=== PATIENT | male | born 1970 | race Caucasian/White ===

== ENCOUNTER 2021-03-14 07:19 | Outpatient (REF) | payer OTHER, SELFPAY ==
--- NOTE | ~2021-03-14 | XR_ITS ---
EXAMINATION: XR KNEE STANDING, BILATERAL XR KNEE, RIGHT CLINICAL INFORMATION: Pain. COMPARISON: None TECHNIQUE: AP standing view of the right and left knees. Lateral and sunrise views of the right knee. FINDINGS: RIGHT KNEE: No significant joint space narrowing. Mild lateral subluxation of the patella with tiny marginal osteophytes. Small joint effusion. No fracture or dislocation. Inferior patellar enthesophyte. LEFT KNEE: Tiny lateral compartment marginal osteophytes. XR/XR knee standing BI IMPRESSION: 1. Mild lateral subluxation of the right patella with mild osteoarthritis. Small right knee joint effusion. 2. Mild lateral compartment osteoarthritis within the left knee.
--- NOTE | ~2021-03-14 | XR_ITS ---
EXAMINATION: XR KNEE STANDING, BILATERAL XR KNEE, RIGHT CLINICAL INFORMATION: Pain. COMPARISON: None TECHNIQUE: AP standing view of the right and left knees. Lateral and sunrise views of the right knee. FINDINGS: RIGHT KNEE: No significant joint space narrowing. Mild lateral subluxation of the patella with tiny marginal osteophytes. Small joint effusion. No fracture or dislocation. Inferior patellar enthesophyte. LEFT KNEE: Tiny lateral compartment marginal osteophytes. XR/XR knee RT 2V IMPRESSION: 1. Mild lateral subluxation of the right patella with mild osteoarthritis. Small right knee joint effusion. 2. Mild lateral compartment osteoarthritis within the left knee.
== END 2021-03-14 07:20 | disposition home or self-care (01) ==
LOC: HO.HOSX 07:19
PROVIDERS: Visit Provider Physician Assistant
DX: M17.11 Unilateral primary osteoarthritis, right knee (principal)
CPT/HCPCS: 20610; 73560; 73565; J1040

== ENCOUNTER → 2021-04-26 13:21 | Outpatient (BNVA) | payer OTHER, SELFPAY | PROVIDERS: PCP Internal Medicine; Visit Provider Physician Assistant ==

== ENCOUNTER 2021-05-08 07:18 | Outpatient (REF) | payer OTHER, SELFPAY ==
--- NOTE | ~2021-05-08 | MR_ITS ---
EXAMINATION: MR KNEE WITHOUT CONTRAST, RIGHT CLINICAL INFORMATION: Right knee pain and swelling. Osteoarthritis. COMPARISON: Right knee radiographs dated 03/14/2021 TECHNIQUE: MRI of the knee without contrast was performed using routine sequences on a high-field scanner. FINDINGS: MENISCI: Medial Meniscus: Intact. Lateral Meniscus: Intact. LIGAMENTS: Cruciate: Intact. Collateral: Intact. EXTENSOR MECHANISM: The quadriceps and patellar tendons are intact. Mild patella raven. Chronic lateral subluxation of the patella with edema in the superolateral aspect of Hoffa's fat pad, which can be seen in the setting of patellar tendon-lateral femoral condyle friction syndrome. ARTICULAR CARTILAGE/BONE: Patellofemoral Compartment: Full-thickness lateral patellar facet and lateral trochlear articular cartilage loss with underlying subchondral cystic change and associated marrow edema. Central trochlear articular cartilage signal heterogeneity and medial patellar facet articular cartilage fissuring. Small marginal osteophytes. Medial Compartment: Normal. Lateral Compartment: Normal. JOINT FLUID AND BURSAE: Moderate joint effusion. MR/MR knee RT wo con IMPRESSION: 1. Mild patella raven with chronic lateral subluxation of the patella. Associated [id number] patellofemoral osteoarthritis with underlying marrow edema. 2. Moderate joint effusion. 3. No acute meniscal or ligamentous injury.
== END 2021-05-08 07:19 | disposition home or self-care (01) ==
LOC: HO.MRI 07:18
PROVIDERS: PCP Internal Medicine; Visit Provider Physician Assistant
DX: M17.11 Unilateral primary osteoarthritis, right knee (principal)
CPT/HCPCS: 73721

== ENCOUNTER → 2021-05-13 08:20 | Outpatient (BNVA) | payer OTHER, SELFPAY | PROVIDERS: PCP Internal Medicine; Visit Provider Physician Assistant | DX: M17.11 Unilateral primary osteoarthritis, right knee (principal) | CPT/HCPCS: 20610; J1040 ==

== ENCOUNTER 2021-06-07 15:00 | Outpatient (RCR) | payer OTHER, SELFPAY ==
--- NOTE | 2021-05-23 16:31 | MHC.PT.EP ---
[facility] [place] [facility] [place] Office [place] Office [address] Maricruz Kaur [address] [phone] F: [phone] F: [phone] F: [phone] F: [phone] Physical Therapy Plan of Care Date of Evaluation: Date of Surgery: n/a Diagnosis: OA of R knee Assessment: Patient is a 50 year old male presenting to PT with complaints of pain in his R knee. Pt reports onset of pain began February 2021 due to a twisting injury when taking an AC out of the window. He presents today with impairments in pain, swelling, knee ROM, knee strength, hip strength, and feelings of instability. 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 Clinical presentation today is most consistent with signs and sx associated with somewhat unclear etiology at this time as he did not tolerate much testing today however per imaging reports pt does have moderate to severe OA at baseline and pt will benefit from skilled PT to address the following problems and impairments noted upon evaluation: pain, swelling, knee ROM, knee strength, hip strength, and feelings of instability. These problems limit the patient with the following functional activities: ambulation, standing, stair negotiation, golfing, transfers, vacumming, mowing the lawn, cleaning. The prescribed treatment plan of care is medically necessary. Co-morbidities of arthritis were identified and taken into considerations of plan of care. Pt was educated on HEP, role of PT, prognosis, POC. Frequency and Duration: The patient will be seen 2x week x 4 weeks Short Term Goals: Pt will demonstrate improved knee ROM to equal B with min pain in 2 weeks. Pt will demonstrate improved knee strength by 1/3 MMT for improved stability when ambulating in 2 weeks. Pt will demonstrate improved swelling to within 1cm of his LLE in 2 weeks. Structural Worker Goals: Pt will demonstrate ability to ambulate from his car into work with minimal pain in 4 weeks to improve access to work. Pt will demonstrate ability to navigate stairs with pain <3/10 in 4 weeks for improved access to his home. Pt will demonstrate ability to complete household cleaning, and lawn mowing duties with pain <3/10 in 4 weeks for improved role at home. Pt will demonstrate improved LEFI score by 9 points in 4 weeks for improved functional mobility. Treatment Plan: Modalities to reduce pain, spasms and effusion. Manual therapy to restore motion and function. Therapeutic exercise to improve strength and flexibility. Neuromuscular re-education for posture and balance. Therapeutic activities to return to functional activities of daily living. Electronically signed by: Opal Horn, PT, DPT, ATC Please sign and return to therapist. Thank you for your referral.
--- NOTE | 2021-06-27 09:35 | MHC.PT.DC ---
[facility] [place] Office [place] Office [place] Office [address] Maricruz Kaur [address] [phone] F: [phone] F: [phone] F: [phone] F: [phone] Physical Therapy Discharge Report Diagnosis: OA of R knee Date of Surgery: n/a Date of Evaluation: 05/23/21 Date of Discharge: 06/27/21 Treatments to Date: 5 Cancellations to Date: 0 No Shows to Date: 0 Discharge Status: Visit Non-compliance Discharge Summary: Pt has cancelled all remaining appointments. Call placed to discuss continuing PT however pt has not returned call. Current status unknown at this time. Electronically signed by: Opal Horn, PT, DPT, ATC Please sign and return to therapist. Thank you for your referral.
== END 2021-06-27 09:36 | disposition home or self-care (01) ==
LOC: HO.PT 15:00
PROVIDERS: PCP Internal Medicine; Visit Provider Physician Assistant
DX: M17.11 Unilateral primary osteoarthritis, right knee (principal)
CPT/HCPCS: 97110; 97112; 97140; 97161

== ENCOUNTER → 2021-06-24 08:46 | Outpatient (BNVA) | payer OTHER, SELFPAY | PROVIDERS: PCP Internal Medicine; Visit Provider Physician Assistant ==

== ENCOUNTER → 2021-07-15 08:22 | Outpatient (BNVA) | payer OTHER, SELFPAY | PROVIDERS: PCP Internal Medicine; Visit Provider Internal Medicine ==

== ENCOUNTER 2021-08-21 05:54 | Outpatient (REF) | payer OTHER, SELFPAY | END 2021-08-21 05:55 | disposition home or self-care (01) | LOC: HO.RADIR 05:54 | PROVIDERS: Visit Provider Internal Medicine | DX: M17.11 Unilateral primary osteoarthritis, right knee (principal) | CPT/HCPCS: 64450 ==

== ENCOUNTER → 2021-08-29 09:58 | Outpatient (BNVA) | payer OTHER, SELFPAY | PROVIDERS: PCP Internal Medicine; Visit Provider Nurse Practitioner Family ==

== ENCOUNTER → 2021-09-19 13:04 | Outpatient (BNVA) | payer OTHER, SELFPAY | PROVIDERS: PCP Internal Medicine; Visit Provider Physician Assistant ==

== ENCOUNTER 2021-12-12 08:22 | Outpatient (REF) | payer OTHER, SELFPAY ==
--- NOTE | ~2021-12-12 | US_ITS ---
EXAMINATION: US ABDOMEN COMPLETE CLINICAL INFORMATION: Unspecified abdominal pain. COMPARISON: Ultrasound abdomen 04/24/2014. TECHNIQUE: Real-time imaging of the abdominal viscera. FINDINGS: PANCREAS: The pancreas is obscured by overlying gas. ABDOMINAL AORTA: The proximal, mid, and distal segments are normal in caliber. INFERIOR VENA CAVA: Visualized portions are normal. LIVER: Normal. The liver is normal in size. The liver contour is normal. Parenchymal echogenicity is normal. No focal hepatic lesion. There is no intrahepatic biliary duct dilatation seen. GALLBLADDER: Normal. The gallbladder is physiologically distended without evidence of stones, sludge, polyps, wall thickening or pericholecystic fluid. COMMON BILE DUCT: Normal in caliber measuring 0.3 cm in diameter. RIGHT KIDNEY: Normal. No hydronephrosis. No renal calculi or focal parenchymal lesions. The kidney measures 10.9 cm in maximum dimension. LEFT KIDNEY: Normal. No hydronephrosis. No renal calculi or focal parenchymal lesions. The kidney measures 11.7 cm in maximum dimension. SPLEEN: Normal. The spleen measures 11.2 cm in maximum dimension. FREE FLUID: None. US/US abdomen complete IMPRESSION: Unremarkable complete abdomen ultrasound.
== END 2021-12-12 08:23 | disposition home or self-care (01) ==
LOC: HO.US 08:22
PROVIDERS: PCP Internal Medicine; Visit Provider Internal Medicine
DX: R10.9 Unspecified abdominal pain (principal)
CPT/HCPCS: 76700

== ENCOUNTER → 2022-01-10 07:09 | Outpatient (BNVA) | payer OTHER, SELFPAY | PROVIDERS: PCP Internal Medicine; Referring Provider Internal Medicine; Visit Provider Nurse Practitioner | DX: K22.70 Barrett's esophagus without dysplasia (principal) ==

== ENCOUNTER 2022-01-16 07:14 | Outpatient (REF) | payer OTHER, SELFPAY ==
[2022-01-16 07:35] LABS: MANUAL DIFF FLAG NO
[2022-01-16 08:04] LABS: Basophils Percent Auto 0.8 % (0-2); Eosinophils Absolute Auto 0.2 X10*3/uL (0.0-0.4); Eosinophils Percent Auto 3.4 % (0-4); Hematocrit 45.8 % (42.0-52.0); Hemoglobin 15.2 g/dl (14.0-18.0); Imm Gran Abs Auto 0.01 X10*3/uL (0.00-0.03); Imm Gran Pct Auto 0.2 % (0.0-0.4); Lymphocytes Absolute Auto 1.7 X10*3/uL (1.2-4.9); Lymphocytes Percent Auto 32.7 % (20-40); Mean Corpuscular HGB Conc 33.2 g/dl (31.0-36.0); Mean Corpuscular Hemoglobin 29.9 pg (27.0-33.0); Mean Platelet Volume 9.3 fL (9.4-12.4); Monocytes Absolute Auto 0.4 X10*3/uL (0.1-1.2); Monocytes Percent Auto 6.6 % (2-11); Neutrophils Percent Auto 56.3 % (45-73); Platelet Count 248 X10*3/uL (160-400); Red Blood Count 5.09 X10*6/uL (4.60-5.80); Red Cell Distribution Width 13.2 % (11.0-16.0); White Blood Count 5.3 X10*3/uL (4.8-10.8)
[2022-01-16 08:44] LABS: Alanine Aminotransferase 18 U/L (0-40); Albumin Level 4.2 g/dL (3.5-5.0); Alkaline Phosphatase 52 U/L (39-117); Anion Gap 12 (12-20); Aspartate Amino Transferase 17 U/L (5-37); Bilirubin Total 0.3 mg/dL (0.0-1.0); Blood Urea Nitrogen 15 mg/dL (9-16); Calcium 9.2 mg/dL (8.4-10.2); Carbon Dioxide 25 mmol/L (22-29); Chloride 105 mmol/L (96-108); Estimated Glomerular Filt Rate > 60; Glucose Random 108 mg/dL (60-115); Potassium 4.7 mmol/L (3.3-5.1); Sodium 137 mmol/L (135-145); Total Protein 6.7 g/dL (6.5-8.0)
== END 2022-01-16 07:15 | disposition home or self-care (01) ==
LOC: HO.LAB 07:14
PROVIDERS: PCP Internal Medicine; Visit Provider Nurse Practitioner
DX: R10.9 Unspecified abdominal pain (principal); K22.70 Barrett's esophagus without dysplasia
CPT/HCPCS: 36415; 80053; 85025

== ENCOUNTER → 2022-01-24 07:20 | Outpatient (BNVA) | payer OTHER, SELFPAY | PROVIDERS: PCP Internal Medicine; Referring Provider Internal Medicine; Visit Provider Nurse Practitioner | DX: K22.70 Barrett's esophagus without dysplasia (principal) ==

== ENCOUNTER 2022-05-30 10:51 | Day surgery (SDC) | payer OTHER, SELFPAY ==
--- NOTE | 2022-05-29 12:02 | HO.ANESPROP2 ---
Documented by User: Lisa Srinivasan NP 05/29/22 12:03 HPI - Anesthesia Eval Consult details Narrative: 51yo M for Upper Endoscopy PMFSH Active Problems Active Problems: All Active Problems (Updated 04/07/22 @ 14:54 by Nicho Bullard MD) Fatigue (Acute) Epigastric pain (Acute) Obesity (Acute) Smoker (Acute) Lee's esophagus (Acute) GERD (gastroesophageal reflux disease) (Acute) Patellofemoral syndrome, right (Acute) Osteoarthritis of right knee (Acute) Knee pain (Acute) Past Medical History Medical History (Updated 04/07/22 @ 14:54 by Nicho Bullard MD) Duodenal ulcer Family History Family History Father Past heart attack Parkinsons disease Mother Hypertension Sister No problems noted. Brother No problems noted. Brother No problems noted. Brother No problems noted. Brother No problems noted. 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 Cognitive needs: No Hearing needs: No Vision needs: No Meds Allergies Allergy/AdvReac Type Severity Reaction Status Date / Time No Known Allergies Allergy Verified 04/07/22 14:09 Exam Exam Date and Time: May 29, 2022 1202 Pertinent Lab Results Pertinent Lab Results: Laboratory Tests 01/16/22 01/16/22 07:34 07:34 WBC 5.3 Hgb 15.2 Hct 45.8 Plt Count 248 Sodium 137 Potassium 4.7 Chloride 105 Carbon Dioxide 25 BUN 15 Creatinine 0.94 Assessment and Plan Assessment Anesthesia Assessment: Chart Reviewed Documented by User: Devi Gutiérrez MD 05/30/22 11:37 [facility] Past Medical History Medical History (Updated 04/07/22 @ 14:54 by Nicho Bullard MD) Duodenal ulcer Family History Family History Father Past heart attack Parkinsons disease Mother Hypertension Sister No problems noted. Brother No problems noted. Brother No problems noted. Brother No problems noted. Brother No problems noted. 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 Cognitive needs: No Hearing needs: No Vision needs: No Meds Allergies Allergy/AdvReac Type Severity Reaction Status Date / Time No Known Allergies Allergy Verified 04/07/22 14:09 Exam Airway Mallampati Class: II TM Dist: >3cm Neck ROM: Full Heart: rrr Lungs: cta Assessment and Plan Assessment Anesthesia Assessment: Anesthesia Plan Discussed Final Anesthetic Review Family History of Problems with Anesthesia: No History of Problems with Anesthesia: No NPO: Yes ASA Class: III Final Preanesthetic Review: No Changes in Pt Med Stat, Meds/Allgs Chart Reviewed and Consent Obtained/Reviewed Patient Risk: Intermediate Procedure Risk: Intermediate Anesthetic Plan Anesthetic Plan: MAC: Disposition: Standard PACU
[2022-05-30 11:40] VITALS: BP 139/85; PULSE 73; RESP 18; TEMP 36.8; O2SAT 99; BMI 29.8
[2022-05-30] MEDS: Lactated Ringers 1,000 ML 100 ML IVCONT (12:05)
--- NOTE | 2022-05-30 12:35 | MHC.SHP ---
Pre-Procedural Eval Section A Date of Service: 05/30/22 The patient is an INPATIENT: No The History & Physical has been completed within 30 days and I have reviewed it.: No Section B Chief Complaint: Epigastric pain,Lee's,reflux disease Relevant Family History (Specify if Yes): No Relevant Social History: Tobacco Use (quitted 2 months ago) Present Medications: see Short Stay Collaborative assessment Medical History: Significant History (GERD, OA) History of Previous Operations: No relevant previous surgery Allergies: Allergies Allergy/AdvReac Type Severity Reaction Status Date / Time No Known Allergies Allergy Verified 04/07/22 14:09 Review of Systems Sugical H&P ROS: Negative: Constitution, Cardiovascular and Respiratory and Yes, Specify: Gastrointestinal (upper abdominal pain) Exam Surgical H&P Exam: Normal: Heart, Normal: Lungs, Normal: Extremities and Normal: Abdomen Plan Diagnosis/Plan: Unchanged I have reviewed the history and physical and performed a pertinent physical examination on my patient. No changes have occurred unless specified.
--- NOTE | 2022-05-30 12:42 | PM.OP ---
Brief Operative Note Date of Service: 05/30/22 Pre-op diagnosis: GERD, follow-up of Barretts esophagus, upper abdominal pain Post-op diagnosis: other (GERD, hiatal hernia, gastritis, long segment Barretts) Procedure: FLEXIBLE TRANSORAL UPPER GASTROINTESTINAL ENDOSCOPY WITH BIOPSIES Consent: Indications for the procedure and potential complications of bleeding, perforation, reaction to medications and missed diagnosis were discussed with the patient and informed consent was obtained. Instrument: Olympus GIF H 190 mid size upper endoscope Monitoring: Vital signs and clinical assessment, continuous EKG monitoring, Pulse oximetry, Carbon Dioxide monitoring and blood pressure monitoring were done throughout the procedure. Procedure: The patient was placed in the left lateral decubitis position and pre-procedure medications were administered and a bite block was placed. The endoscope was inserted into the mouth and advanced under direct vision to the third part of duodenum. A careful inspection was made as the upper endoscope was withdrawn including a retroflexed examination of the proximal stomach; Findings and interventions are described below. Findings: Larynx: Normal Esophagus: GE junction at 34 cms, medium sized hiatal hernia from 34 to 38 cms. Lond segment Main's from 20 to 34 cms - examined with NBI. A 7-8 mm nodule noted at 22 cms - biopsied. No esophagitis. Surveillance biopsies were obtained every 2 cm from the Main's segment. Stomach: Mild gastric erythema. Biopsies were obtained. Grade 4 flap valve on retroflexed examination of the cardia. Duodenum: Normal bulb and descending duodenum Intervention: Biopsies as noted above Impression and Post Procedure Diagnosis: Endoscopy Findings: ESOPHAGUS: GE junction at 34 cms, medium sized hiatal hernia from 34 to 38 cms. Lond segment Main's from 20 to 34 cms - examined with NBI. A 7-8 mm nodule noted at 22 cms - biopsied. No esophagitis. Surveillance biopsies were obtained every 2 cm from the Main's segment. STOMACH: Antral gastritis No clear etiology found for upper abdominal/chest pain Plan: Await pathology results. Further evaluation with a barium swallow to rule out torsion of hiatal hernia causing abdominal/chest pain Patient has an appointment on 06/26/22 in the GI Clinic with Alecia Pappas NP . Above findings were reviewed with the patient and GERD and Main's esophagus handouts were given in the discharge area Surgeon: Alka Mccloud MD Anesthesia: MAC (Dr Quigley) Was an Safety Equipment Testing Specialist used for this Procedure?: Yes Safety Equipment Testing Specialist: Barry Geiger Estimated blood loss (mL): 0 Pathology: other (A-GASTRIC ANTRUM BXS R/O H. PYLORI B- ESOPHAGUS BXS AT 34CM MAIN'S. R/O DYSPLASIA C- ESOPHAGUS BXS AT 32CM MAIN'S. R/O DYSPLASIA D- ESOPHAGUS BXS AT 30CM E- ESOPHAGUS BXS AT 28 CM ) Condition: stable Disposition: PACU
--- NOTE | 2022-05-30 12:43 | P.OP_ITS ---
Operative Note Operative Note Date of Service: 05/30/22 Narrative: Pre-op diagnosis: GERD, follow-up of Barretts esophagus, upper abdominal pain Post-op diagnosis:?other (GERD, hiatal hernia, gastritis, long segment Barretts) Procedure: FLEXIBLE TRANSORAL UPPER GASTROINTESTINAL ENDOSCOPY WITH BIOPSIES Consent:?Indications for the procedure and potential complications of bleeding, perforation, reaction to medications and missed diagnosis were discussed with the patient and informed consent was obtained. Instrument:?Olympus GIF H 190 mid size upper endoscope Monitoring: Vital signs and clinical assessment, continuous EKG monitoring, Pulse oximetry, Carbon Dioxide monitoring and blood pressure monitoring were done throughout the procedure. Procedure:?The patient was placed in the left lateral decubitis position and pre-procedure medications were administered and a bite block was placed. The endoscope was inserted into the mouth and advanced under direct vision to the third part of duodenum. A careful inspection was made as the upper endoscope was withdrawn including a retroflexed examination of the proximal stomach; Findings and interventions are described below. Findings: Larynx:? Normal Esophagus: GE junction at 34 cms, medium sized hiatal hernia from 34 to 38 cms. Lond segment Main's from 20 to 34 cms - examined with NBI. A 7-8 mm nodule noted at 22 cms - biopsied. No esophagitis. Surveillance biopsies were obtained every 2 cm from the Main's segment. Stomach: Mild gastric erythema. Biopsies were obtained. Grade 4 flap valve on retroflexed examination of the cardia. Duodenum: Normal bulb and descending duodenum Intervention: Biopsies as noted above Impression and Post Procedure Diagnosis: Endoscopy Findings: ESOPHAGUS: GE junction at 34 cms, medium sized hiatal hernia from 34 to 38 cms. Lond segment Main's from 20 to 34 cms - examined with NBI. A 7-8 mm nodule noted at 22 cms - biopsied. No esophagitis. Surveillance biopsies were obtained every 2 cm from the Main's segment. STOMACH: Antral gastritis No clear etiology found for upper abdominal/chest pain Plan: Await pathology results. Further evaluation with a barium swallow to rule out torsion of hiatal hernia causing abdominal/chest pain. Consider a chest/abdominal CT scan if barium swallow is negative Patient has an appointment on 06/26/22 in the GI Clinic with? Alecia Pappas NP. Above findings were reviewed with the patient and GERD and Main's esophagus handouts were given in the discharge area Surgeon: Alka Mccloud MD Anesthesia:?MAC (Dr Quigley) Was an Shed Workers Supervisor used for this Procedure?:?Yes Shed Workers Supervisor:?Barry Geiger Estimated blood loss (mL):?0 Pathology:?other (A-GASTRIC ANTRUM BXS? R/O H. PYLORI? B- ESOPHAGUS BXS AT 34CM ? MAIN'S. ? R/O DYSPLASIA? C- ESOPHAGUS BXS? AT 32CM ? MAIN'S. ? R/O DYSPLASIA? D- ESOPHAGUS BXS AT 30CM? E- ESOPHAGUS BXS AT 28 CM ? ? ) Condition:?stable Disposition:?PACU
[2022-05-30 13:23] VITALS: BP 95/59; PULSE 55; RESP 16; TEMP 36.3; O2SAT 96
[2022-05-30 13:38] VITALS: BP 111/74; PULSE 56; RESP 18; TEMP 36.3; O2SAT 100
== END 2022-05-30 14:10 | disposition home or self-care (01) ==
PROVIDERS: PCP Internal Medicine; Visit Provider Internal Medicine Gastroenterology
PROC: 0DJ08ZZ Inspection of Upper Intestinal Tract, Via Natural or Artificial Opening Endoscopic (ICD-10-PCS; CPT 43235; principal; 2022-05-30 12:30)
DX: K22.70 Barrett's esophagus without dysplasia (principal); K21.9 Gastro-esophageal reflux disease without esophagitis; K29.50 Unspecified chronic gastritis without bleeding; K44.9 Diaphragmatic hernia without obstruction or gangrene; Z79.899 Other long term (current) drug therapy; Z87.891 Personal history of nicotine dependence
CPT/HCPCS: 43239; 88305; 88342

== ENCOUNTER 2022-07-08 08:42 | Outpatient (REF) | payer OTHER, SELFPAY ==
--- NOTE | ~2022-07-08 | FL_ITS ---
EXAMINATION: FL BARIUM SWALLOW CLINICAL INFORMATION: History of ulcers. COMPARISON: None TECHNIQUE: Barium swallow examination is performed using fluoroscopic evaluation in addition to multiple fluoroscopic spot views. The patient is imaged both upright and prone and using both thick and thin sulfate along with effervescent granules. Fluoroscopy time: 1.8 minutes DAP: 27.9 Gycm2 Images: 50 FINDINGS: Following oral administration of thick barium there is normal propagation bolus from the oral cavity through the pharynx, esophagus into stomach with trace laryngeal penetration and aspiration. No obstruction seen along the course of esophagus. On placing patient supine and prone lying and oral administration of thin barium there is good esophageal distention. There is a small sliding hiatal hernia with mild gastroesophageal reflux. FL/FL barium swallow IMPRESSION: Trace laryngeal aspiration with thick barium. Small sliding hiatal hernia with mild gastroesophageal reflux. No mucosal irregularity or ulceration seen within the esophagus.
== END 2022-07-08 08:43 | disposition home or self-care (01) ==
LOC: HO.XRAY 08:42
PROVIDERS: PCP Internal Medicine; Visit Provider Internal Medicine Gastroenterology
DX: R10.13 Epigastric pain (principal); K44.9 Diaphragmatic hernia without obstruction or gangrene; K21.9 Gastro-esophageal reflux disease without esophagitis
CPT/HCPCS: 74220

== ENCOUNTER → 2022-09-16 07:48 | Outpatient (REF) | payer BC, SELFPAY ==
--- NOTE | ~2022-09-16 | NM_ITS ---
EXAMINATION: RADIONUCLIDE SOLID FOOD GASTRIC EMPTYING 4-HOUR STUDY CLINICAL INFORMATION: Early satiety. COMPARISON: No previous gastric emptying study is available for comparison. TECHNIQUE: A standard meal consisting of 4 oz of Egg Beaters brand tagged with 1 mCi Tc-99m Sulfur Colloid, 8 oz water and 2 slices of toast with jelly was administered orally to the patient. Images were obtained using a dual head gamma camera in the anterior and posterior projections over of the stomach immediately post ingestion and at hourly intervals up to 3 hours post ingestion. Images were not obtained at 4 hours due to the minimal retention at 3 hours. The anterior and posterior counts at each time interval were averaged using the geometric mean and expressed as percentage of the immediate post ingestion counts. FINDINGS: There is good visualization of activity in the stomach immediately post ingestion. As the study progresses, there is good clearance of activity from the stomach and visualization of progressively increasing small bowel activity. By the end of the study, there is almost no retention noted in the stomach. Retention in the stomach at each time interval was: 1 hour 48% (normal 37%-90%) 2 hours 14% (normal 30%-60%) 3 hours 2% 4 hours (Not Obtained) (normal 0%-10%) NM/NM gastric emptying study IMPRESSION: Normal solid food gastric emptying study.
== END ==
LOC: HO.NUCMED 07:48
PROVIDERS: PCP Internal Medicine; Visit Provider Nurse Practitioner
DX: R68.81 Early satiety (principal)
CPT/HCPCS: 78264; A9541

== ENCOUNTER 2022-10-16 12:26 | Outpatient (REF) | payer BC, SELFPAY ==
--- NOTE | ~2022-10-16 | XR_ITS ---
EXAMINATION: XR HAND, RIGHT CLINICAL INFORMATION: Cellulitis COMPARISON: None TECHNIQUE: PA, lateral, and oblique views of the right hand. FINDINGS: No soft tissue gas, cortical erosion or periosteal reaction to suggest soft tissue or bone infection. No radiopaque foreign body. No acute osseous abnormality. Moderate triscaphoid osteoarthritis. XR/XR hand RT min 3V IMPRESSION: No acute osseous abnormality. Moderate triscaphoid osteoarthritis.
== END 2022-10-16 12:27 | disposition home or self-care (01) ==
LOC: HO.XRAY 12:26
PROVIDERS: PCP Internal Medicine; Visit Provider Family Medicine
DX: L08.9 Local infection of the skin and subcutaneous tissue, unspecified (principal); L03.113 Cellulitis of right upper limb
CPT/HCPCS: 73130

== ENCOUNTER 2022-11-12 09:34 | Outpatient (REF) | payer BC, SELFPAY ==
--- NOTE | ~2022-11-12 | XR_ITS ---
EXAMINATION: XR HAND, RIGHT CLINICAL INFORMATION: Pain COMPARISON: None available. TECHNIQUE: PA, lateral, and oblique views of the right hand. FINDINGS: There is loss of and PIP and DIP joints without any bony erosive changes, loose bodies or lytic process. There is mild periarticular spurring PIP joint first digit. No acute fracture or dislocation seen. The soft tissues are normal. XR/XR hand RT min 3V IMPRESSION: Mild degenerative changes PIP and DIP joints. No visible acute fracture or dislocation seen.
== END 2022-11-12 09:35 | disposition home or self-care (01) ==
LOC: HO.HOSX 09:34
PROVIDERS: Visit Provider Orthopaedic Surgery
DX: M79.641 Pain in right hand (principal); L30.9 Dermatitis, unspecified
CPT/HCPCS: 73130

== ENCOUNTER 2023-03-13 19:03 | Emergency (ER) | payer BC, SELFPAY ==
--- NOTE | 2023-03-13 | ECG_ITS ---
Test Reason : DISSIENESS Blood Pressure : / mmHG Vent. Rate : 070 BPM Atrial Rate : 070 BPM P-R Int : 154 ms QRS Dur : 084 ms QT Int : 368 ms P-R-T Axes : 014 006 032 degrees QTc Int : 397 ms Sinus rhythm with marked sinus arrhythmia Inferior infarct , age undetermined Abnormal ECG When compared with ECG of 01-APR-2014 08:37, No significant change was found Referred By: Generic ED Physician Electronically Signed By:MAXIMILIANO FLORES MD
[2023-03-13 19:22] VITALS: BP 126/74; BP 134/82; PULSE 70; PULSE 80; RESP 18; TEMP 36.9; O2SAT 95; O2SAT 96; BMI 31.4
[2023-03-13 19:48] LABS: MANUAL DIFF FLAG NO
[2023-03-13 19:50] LABS: Basophils Percent Auto 0.5 % (0-2); Eosinophils Absolute Auto 0.2 X10*3/uL (0.0-0.4); Eosinophils Percent Auto 2.6 % (0-4); Hematocrit 44.7 % (42.0-52.0); Imm Gran Abs Auto 0.01 X10*3/uL (0.00-0.03); Imm Gran Pct Auto 0.1 % (0.0-0.4); Lymphocytes Absolute Auto 2.4 X10*3/uL (1.2-4.9); Lymphocytes Percent Auto 30.9 % (20-40); Mean Corpuscular HGB Conc 33.6 g/dl (31.0-36.0); Mean Corpuscular Hemoglobin 29.5 pg (27.0-33.0); Mean Platelet Volume 9.5 fL (9.4-12.4); Monocytes Absolute Auto 0.7 X10*3/uL (0.1-1.2); Monocytes Percent Auto 8.9 % (2-11); Neutrophils Absolute Auto 4.4 x10*3/uL (2.0-8.3); Platelet Count 284 X10*3/uL (160-400); Red Blood Count 5.08 X10*6/uL (4.60-5.80); Red Cell Distribution Width 12.7 % (11.0-16.0); White Blood Count 7.7 X10*3/uL (4.8-10.8)
[2023-03-13 20:07] LABS: Appearance Urine Clear; Color Urine Yellow; Glucose Urine UA Negative (Negative); Leukocyte Esterase Urine Negative (Negative); Nitrite Urine Negative (Negative); Specific Gravity - Urine 1.015 (1.005-1.025); Urine Blood Negative (Negative); Urine Ketones Negative (Negative); Urine Protein Negative (Neg-Trace)
[2023-03-13 20:09] LABS: Alanine Aminotransferase 20 U/L (0-40); Albumin Level 4.3 g/dL (3.5-5.0); Alkaline Phosphatase 54 U/L (39-117); Anion Gap 13 (12-20); Aspartate Amino Transferase 19 U/L (5-37); Bilirubin Total 0.5 mg/dL (0.0-1.0); Blood Urea Nitrogen 13 mg/dL (9-16); Calcium 9.7 mg/dL (8.4-10.2); Carbon Dioxide 24 mmol/L (22-29); Chloride 106 mmol/L (96-108); Creatinine Clr Calc Pharmacy 134.5; Estimated Glomerular Filt Rate > 60; Glucose Random 100 mg/dL (60-115); Sodium 139 mmol/L (135-145); Total Protein 7.6 g/dL (6.5-8.0)
[2023-03-13 20:20] LABS: Troponin-I High Sensitivity < 2.7 ng/L (<3.5-35.0)
--- NOTE | 2023-03-13 20:37 | ED_ITS ---
HPI - Psych General Chief Complaint: Fall Stated Complaint: panic attacks, dizzy, fall no headstrike, per ems Time Seen by Provider: 03/13/23 20:03 Source: patient Mode of arrival: EMS Limitations: no limitations History of Present Illness HPI Narrative: Patient comes to the emergency room complaining of a panic attack. Patient states that he got upset earlier today. Patient had a meld time, started crying for about 30 minutes. Patient states that he tried sitting up and started feeling lightheaded. Patient states that he had to get on his knees on the floor. Denies any head injury, no blood thinners. Patient requesting information for the therapist. At this time, patient states that he feels much better, no chest pain shortness of breath, declined medication for anxiety. Patient denies suicidal or homicidal ideation Related Data Previous Rx's Medication Instructions Recorded lansoprazole 30 mg capsule,delayed 30 mg PO BID #60 caps 01/10/22 release sertraline 100 mg tablet 100 mg PO QAM #90 tabs 02/03/23 triamcinolone acetonide 0.5 % 1 appl topical TID #15 grams 02/05/23 topical cream Allergies Allergy/AdvReac Type Severity Reaction Status Date / Time No Known Allergies Allergy Verified 11/12/22 11:25 Review of Systems Review of Systems: Constitutional : No Weight loss, No Fever, No Chills, No Night Sweats, No Fatigue, No Malaise ENT/Mouth : No Hearing loss, No Ear Pain, No Nasal Congestion, No Sinus Pain, No Hoarseness, No sore throat, No Rhinorrhea, No Swallowing Difficulty Eyes: No Eye Pain, No Swelling, No Redness, No Foreign Body, No Discharge, No Vision Changes Cardiovascular : No Chest Pain, No SOB, No Dyspnea on Exertion, No Orthopnea, No Edema, No Palpitations Respiratory : No Cough, No Sputum, No Wheezing, No Smoke Exposure, No Dyspnea Gastrointestinal : No Nausea, No Vomiting, No Diarrhea, No Constipation, No abdominal Pain, No Hematochezia, No Melena Genitourinary : no irregular bleeding, No Dysuria, No Urinary Frequency, No Hematuria, No Urinary Incontinence, No Urgency, No Flank Pain, No Urinary Flow Changes, No Hesitancy Musculoskeletal : No joint pain, No Myalgias, No Joint Swelling Skin : No Skin Lesions, No rash Neuro : No Weakness, No Numbness, No Paresthesias, No Loss of Consciousness, No Dizziness, No Headache Psych : Complaining of anxiety, no SI no HI Heme/Lymph: No Bruising, No Bleeding,No Lymphadenopathy Endocrine : No Polyuria, No Polydipsia, No Temperature Intolerance [facility] Past Medical History Medical History Duodenal ulcer Hiatal hernia with gastroesophageal reflux Surgical History No pertinent past surgical history Family History Family History Father Past heart attack Parkinsons disease Mother Hypertension Sister No problems noted. Brother No problems noted. Brother No problems noted. Brother No problems noted. Brother No problems noted. Family/Other GERD (gastroesophageal reflux disease) Arthritis Social History Social History Housing: House Alcohol intake: current Alcohol intake frequency: holidays/special occasions only Patient Tobacco Use Status: Current everyday Tobacco user Tobacco use type: Cigarette Cigarettes Per Day: 10 Years Smoked: 31 Smoked in Last 30 Days: Yes e-Cigarette/Vaping Use: Never Used Second Hand Smoke Exposure: No Use of substances other than those prescribed or required for medical reasons: Yes Substance Use Type: Marijuana Advance Directives: No Advance Directives Information Provided: No Current occupational status: employed 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 Oriented X3. No acute distress. Eyes: Pupils equal, round and reactive to light. ENT: Pharynx normal. Neck: Normal inspection. Neck supple. No lymph nodes noted. No crepitus CVS: Normal heart rate and rhythm. Pulses normal. Normal S1 and S2 Respiratory: No respiratory distress. Breath sounds normal. No Wheezing. No rales Abdomen: Soft and nontender. No rigidity. No distention. Skin: Skin warm and dry. Normal skin color. Normal skin turgor. Extremities: No lower extremity edema. No Lacerations. No Rash Neuro: Oriented X 3. No motor deficit. No sensory deficit. Moving all extremities. No slurred speech. CN 2 through 12 grossly intact Psych: calm, cooperative, teary Course Course Course Narrative: -patient requesting to be seen by the care team to get information for outpatient treatment/therapy Medical Decision Making Medical Decision Making [facility] Narrative: -patient initially reported chest pain, admission considered. Lab work pending -EKG my interpretation: Sinus rhythm, marked sinus arrhythmia, heart rate 70, no ST segment depression or elevation, no T-wave inversion, QTC 397 -my interpretation of labs: Troponin negative -patient asymptomatic at this time, feeling sad, teary, no SI or HI -care team consult pending -position observation started at 20:30 -care team evaluated the patient, patient given information for outpatient services. -orthostatic vitals negative. Differential Diagnosis Differential Diagnoses: The differential diagnosis associated with the pre sentation includes (ACS, anxiety, depression) Admission/Observation Consideration of admission/observation: Escalation of care including admission/observation considered Lab Data [facility] Lab Attestation statement: I reviewed the patient's lab results. 03/13/23 19:41 03/13/23 19:41 Labs: Lab Results 03/13/23 03/13/23 03/13/23 Range/Units 19:41 19:41 19:41 WBC 7.7 (4.8-10.8) X10*3/uL RBC 5.08 (4.60-5.80) X10*6/uL Hgb 15.0 (14.0-18.0) g/dl Hct 44.7 (42.0-52.0) % MCV 88.0 (80.0-98.0) fL MCH 29.5 (27.0-33.0) pg MCHC 33.6 (31.0-36.0) g/dl RDW 12.7 (11.0-16.0) % Plt Count 284 (160-400) X10*3/uL MPV 9.5 (9.4-12.4) fL Immature Gran % (Auto) 0.1 (0.0-0.4) % Neut % (Auto) 57.0 (45-73) % Lymph % (Auto) 30.9 (20-40) % [place] % (Auto) 8.9 (2-11) % Eos % (Auto) 2.6 (0-4) % Baso % (Auto) 0.5 (0-2) % Lymph # (Auto) 2.4 (1.2-4.9) X10*3/uL [place] # (Auto) 0.7 (0.1-1.2) X10*3/uL Eos # (Auto) 0.2 (0.0-0.4) X10*3/uL Baso # (Auto) 0.0 (0.0-0.2) X10*3/uL Abs Immat Gran (auto) 0.01 (0.00-0.03) X10*3/uL Absolute Neuts (auto) 4.4 (2.0-8.3) x10*3/uL Absolute Nucleated RBC 0.000 (0.0-0.012) X10*3/uL Nucleated RBC % (auto) 0.0 (0.0-0.2) /100WBC Sodium 139 (135-145) mmol/L Potassium 4.0 (3.3-5.1) mmol/L Chloride 106 (96-108) mmol/L Carbon Dioxide 24 (22-29) mmol/L Anion Gap 13 (12-20) BUN 13 (9-16) mg/dL Creatinine 0.79 (0.5-1.4) mg/dL Estim Creat Clear Calc 134.5 Estimated GFR > 60 Random Glucose 100 (60-115) mg/dL Calcium 9.7 (8.4-10.2) mg/dL Total Bilirubin 0.5 (0.0-1.0) mg/dL AST 19 (5-37) U/L ALT 20 (0-40) U/L Alkaline Phosphatase 54 (39-117) U/L Troponin I High Sens < 2.7 (<3.5-35.0) ng/L Total Protein 7.6 (6.5-8.0) g/dL Albumin 4.3 (3.5-5.0) g/dL Urine Color Urine Appearance Urine pH (5.0-9.0) Ur Specific [place] (1.005-1.025) Urine Protein (Neg-Trace) mg/dL Urine Glucose (UA) (Negative) mg/dL Urine Ketones (Negative) mg/dL Urine Blood (Negative) Urine Nitrite (Negative) Ur Leukocyte Esterase (Negative) 03/13/23 Range/Units 20:00 WBC (4.8-10.8) X10*3/uL RBC (4.60-5.80) X10*6/uL Hgb (14.0-18.0) g/dl Hct (42.0-52.0) % MCV (80.0-98.0) fL MCH (27.0-33.0) pg MCHC (31.0-36.0) g/dl RDW (11.0-16.0) % Plt Count (160-400) X10*3/uL MPV (9.4-12.4) fL Immature Gran % (Auto) (0.0-0.4) % Neut % (Auto) (45-73) % Lymph % (Auto) (20-40) % [place] % (Auto) (2-11) % Eos % (Auto) (0-4) % Baso % (Auto) (0-2) % Lymph # (Auto) (1.2-4.9) X10*3/uL [place] # (Auto) (0.1-1.2) X10*3/uL Eos # (Auto) (0.0-0.4) X10*3/uL Baso # (Auto) (0.0-0.2) X10*3/uL Abs Immat Gran (auto) (0.00-0.03) X10*3/uL Absolute Neuts (auto) (2.0-8.3) x10*3/uL Absolute Nucleated RBC (0.0-0.012) X10*3/uL Nucleated RBC % (auto) (0.0-0.2) /100WBC Sodium (135-145) mmol/L Potassium (3.3-5.1) mmol/L Chloride (96-108) mmol/L Carbon Dioxide (22-29) mmol/L Anion Gap (12-20) BUN (9-16) mg/dL Creatinine (0.5-1.4) mg/dL Estim Creat Clear Calc Estimated GFR Random Glucose (60-115) mg/dL Calcium (8.4-10.2) mg/dL Total Bilirubin (0.0-1.0) mg/dL AST (5-37) U/L ALT (0-40) U/L Alkaline Phosphatase (39-117) U/L Troponin I High Sens (<3.5-35.0) ng/L Total Protein (6.5-8.0) g/dL Albumin (3.5-5.0) g/dL Urine Color Yellow Urine Appearance Clear Urine pH 7.0 (5.0-9.0) Ur Specific [place] 1.015 (1.005-1.025) Urine Protein Negative (Neg-Trace) mg/dL Urine Glucose (UA) Negative (Negative) mg/dL Urine Ketones Negative (Negative) mg/dL Urine Blood Negative (Negative) Urine Nitrite Negative (Negative) Ur Leukocyte Esterase Negative (Negative) Discharge Plan Discharge Clinical Impression: Panic attack Patient Disposition: Home, Self-Care Instructions: Panic Attack (ED) Additional Instructions: Please follow-up with your primary care physician tomorrow. If you have any worsening or new symptoms, please return to the emergency room or call 911 Prescriptions: No Action sertraline 100 mg tablet 100 mg PO QAM Qty: 90 8RF triamcinolone acetonide 0.5 % cream 1 appl topical TID Qty: 15 3RF lansoprazole 30 mg capsule,delayed release(DR/EC) 30 mg PO BID Qty: 60 6RF
--- NOTE | 2023-03-13 20:39 | PC.NURSE ---
Assumed care of pt. Pt lying on stretcher, no acute distress at this time. Pt no longer c/o chest tightness from initial complain, continues to sts dizziness. Ss was in stressful situation at home, tearful, and stood up too fast .
--- NOTE | 2023-03-13 21:20 | MHC.CARE ---
CARE Team met with the pt at the request of the ED provider, Dr. Crowe. Pt was crying for 4 hours straight, went from the seated position to stand, and fell over. 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 Pt described it as dancing on a pin head . Pt stated that he cannot contain himself any longer and he wants to just explode. Pt is requesting OP Therapy and a psychiatrist. Pt resides in [place] and was recommended to call [facility] to make a self referral to OP therapy. T/W informed the pt that he could make the referral for the pt, but the pt stated that he will go to their walk in hours and make his own appointment. T/W gave the informational booklet to the pt and he has the number for [facility] in [place]. Pt was informed by t/w that he ever needs anything else that he can call the crisis line that is listed in the booklet, unless he believes he is having a medical emergency. Dr. Crowe was informed by t/w that the pt was seen and what was discussed between t/w and the pt.
[2023-03-13 21:21] VITALS: BP 125/81; PULSE 69; RESP 18; TEMP 37.1; O2SAT 95
[2023-03-13 21:27] VITALS: BP 128/78; PULSE 62
[2023-03-13 21:28] VITALS: BP 121/88; BP 123/86; PULSE 72; PULSE 75
== END 2023-03-13 21:48 | disposition home or self-care (01) ==
PROVIDERS: Emergency Provider Emergency Medicine; PCP Internal Medicine
DX: F41.0 Panic disorder [episodic paroxysmal anxiety] (principal); R42 Dizziness and giddiness; R51.9 Headache, unspecified; I49.8 Other specified cardiac arrhythmias; F41.1 Generalized anxiety disorder; F43.0 Acute stress reaction; Z79.899 Other long term (current) drug therapy
CPT/HCPCS: 36415; 80053; 81003; 84484; 85025; 93005; 99284; 99285

== ENCOUNTER → 2023-03-13 19:23 | Outpatient (BNV) | payer BC, SELFPAY | PROVIDERS: Emergency Provider Emergency Medicine; PCP Internal Medicine; Visit Provider Internal Medicine Cardiovascular Disease | DX: R42 Dizziness and giddiness (principal) | CPT/HCPCS: 93010 ==

== ENCOUNTER 2023-03-27 10:11 | Outpatient (AMB) | payer BC, SELFPAY ==
--- NOTE | 2023-03-27 10:18 | MHC.PC.OV ---
Vital Signs 03/27/23 10:20 Height 5 ft 11 in Weight 232 lb 8 oz BMI 32.4 BP 130/70 Blood Pressure Location Lt brachial Position Sitting Pulse 80 Pulse Source Pulse Oximeter Pulse Oximetry (%) 97 Oxygen Delivery Method Room Air Intake Visit Reasons: F/u on panic attack/dizziness Intake Note: Patient is here to follow up on panic attack, pressure on both sides of head, dizziness, difficult sleeping. Data Processing Systems Project Planner Required: No Sociology Professor: Not Required per policy Accompanied by: Self / Same As Patient Allergies No Known Allergies Allergy (Verified 03/27/23 10:20) Medication List - Last Reconciled 03/27/23 by Nicho Bullard MD lansoprazole 30 mg PO BID sertraline 100 mg PO QAM triamcinolone acetonide 0.5% 1 appl topical TID Tobacco use date assessed: 03/27/23 Dental Screening Dental Screen Date: 03/27/23 Did you have a dental visit in the last 12 months?: Yes Did you have a dental problem in the last 6 months where you did not have access to dental care?: No Was dental information given to patient?: Patient has dentist HPI F/u on panic attack/dizziness HPI Details has a headache for 2 weeks PFSH Medical History Duodenal ulcer Hiatal hernia with gastroesophageal reflux Surgical History No pertinent past surgical history Family History (Updated 03/27/23 @ 10:24 by SUE Gunn) Father Past heart attack Parkinsons disease Mother Hypertension Sister No problems noted. Brother No problems noted. Brother No problems noted. Brother No problems noted. Brother No problems noted. 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 1. Little interest or pleasure in doing things: several days 2. Feeling down, depressed, or hopeless: several days 3. Trouble falling or staying asleep, or sleeping too much: nearly every day 4. Feeling tired or having little energy: nearly every day 5. Poor appetite or overeating: not at all 6. Feeling bad about yourself - or that you are a failure or have let yourself or your family down: nearly every day 7. Trouble concentrating on things, such as reading the newspaper or watching television: nearly every day 8. Moving or speaking so slowly that other people could have noticed. Or the opposite - being so fidgety or restless that you have been moving around a lot more than usual: nearly every day 9. Thoughts that you would be better off or of hurting yourself in some way: not at all Total score: 17 Source: Developed by Drs. Momo Vann, Naomi Schroeder, Tim Blackwell and colleagues, with an educational keny from [employer]. Thrive Questionnaire Date Thrive assessed: 03/27/23 I am a: Patient What is your living situation today?: I have a steady place to live Within the past 12 months, did the food you bought not last and you didn't have the money to get more?: Never true Within the past 12 months, did you worry whether your food would run out before you got money to buy more?: Never true Do you have trouble paying for medicines?: No Do you have trouble getting transportation to medical appointments?: No Do you have trouble paying your heating and electricity bill?: No Do you have trouble taking care of your child, family member or friend?: No Do you have trouble with day-to-day activities such as bathing, preparing meals, shopping, managing finances, etc.?: No Are you currently unemployed and looking for a job?: No Are you interested in more education?: No Currently or been in a relationship where the following occur: no concerns reported AUDIT C Alcohol Use Questionnaire (AUDIT-C) 1. How often do you have a drink containing alcohol?: Never Total Score: 0 DEEPAK-7 AMB Questionnaire DEEPAK-7 Date DEEPAK - 7 assessed: 03/27/23 Feeling nervous, anxious, or on edge: 3 = Nearly every day Not being able to stop or control worryin = Nearly every day Worrying too much about different things: 3 = Nearly every day Trouble relaxin = Nearly every day Being so restless that it is hard to sit still: 3 = Nearly every day Becoming easily annoyed or irritable: 3 = Nearly every day Feeling afraid as if something awful might happen: 3 = Nearly every day Total DEEPAK-7 score (0-4 normal; 5-9 mild; 10-14 moderate; 15-21 severe): 21 Source: Developed by Drs. Momo Vann, Naomi Schroeder, Tim Blackwell and colleagues, with an educational keny from [employer]. Review of Systems Const Denies chills, Denies headache(s) and Denies weight loss ENT Denies headache(s) Card Denies chest pain, Denies syncope, Denies irregular heart rhythm and Denies dyspnea Resp Denies chest congestion, Denies cough and Denies dyspnea GI Denies abdominal pain, Denies change in stool character, Denies nausea and Denies vomiting Musc Denies deformity and Denies joint swelling Neuro Denies syncope and Denies headache(s) Physical exam (Primary Care) Vital Signs: Last Vital Signs Pulse 80 03/27/23 10:20 BP 130/70 03/27/23 10:20 Pulse Ox 97 03/27/23 10:20 Oxygen Delivery Method Room Air 03/27/23 10:20 BMI result Body Mass Index 32.4 obesity BMI Assessment/Plan discussion: High BMI High, discussed plan: lifestyle, weight reduction, dietary and physical activity Tobacco/Smoking Status: Tobacco use Status Tobacco use date assessed 03/27/23 03/27/23 10:27 Patient Tobacco Use Status Current everyday Tobacco 03/27/23 10:27 Tobacco use type Cigarette 03/27/23 10:27 e-Cigarette/Vaping Use Never Used 03/27/23 10:27 Are you ready to quit: Yes Tobacco cessation counseling provided: Yes Number of minutes spent counselin CPT code: 26760 - Greater than 10 minutes PHQ-9: PHQ-9 Score PHQ-9: Total score 17 03/27/23 10:27 Thrive Assessment: Date of Thrive Assessment Date Thrive assessed 03/27/23 03/27/23 10:27 Currently or been in a relationship where the following occur: no concerns reported Const General: cooperative, healthy appearing and no acute distress Resp Effort & Inspection: normal respiratory effort Auscultation: clear to auscultation bilaterally Percussion: percussion normal Cardio Jugular venous distension: no JVD Rate: regular rate Rhythm: regular rhythm GI Inspection: Yes normal to inspection Assessment and Plan Assessment & Plan (1) Headache: Code(s): R51.9 - Headache, unspecified Orders: Orders Erythrocyte Sedimentation Rate Today R51.9 - Headache, unspecified Medications: New cyclobenzaprine 10 mg PO TID PRN 30 tabs 2RF muscle spasm Patient Instructions: lab and rx Coding Level of Care Code Est Pt Level 3 (54790) Diagnoses Headache R51.9 Additional Codes Vital Signs *Quality* - CPT code: 14404 - Greater than 10 minutes ([id number])
[2023-03-27 10:20] VITALS: BP 130/70; PULSE 80; O2SAT 97; BMI 32.4
== END 2023-03-27 10:53 | disposition home or self-care (01) ==
PROVIDERS: PCP Internal Medicine; Visit Provider Internal Medicine
DX: R51.9 Headache, unspecified (principal)
CPT/HCPCS: 99213

== ENCOUNTER 2023-03-27 10:35 | Outpatient (REF) | payer BC, SELFPAY ==
[2023-03-27 12:35] LABS: Erythrocyte Sedimentation Rate 7 MM/HR (0-15)
== END 2023-03-27 10:36 | disposition home or self-care (01) ==
LOC: HO.LAB 10:35
PROVIDERS: PCP Internal Medicine; Visit Provider Internal Medicine
DX: R51.9 Headache, unspecified (principal)
CPT/HCPCS: 36415; 85652

== ENCOUNTER 2023-04-10 12:50 | Outpatient (AMB) | payer BC, SELFPAY ==
--- NOTE | 2023-04-10 13:01 | A.OFFPC_ITS ---
Vital Signs 04/10/23 13:02 Height 5 ft 11 in Weight 238 lb 4 oz BMI 33.2 BP 138/64 Blood Pressure Location Lt brachial Position Sitting Pulse 81 Pulse Source Pulse Oximeter Pulse Oximetry (%) 94 Oxygen Delivery Method Room Air Intake Visit Reasons: trouble finding words, memory issues Intake Note: Patient is here to follow up on memory issues, trouble finding words. Complaint of ongoing headaches. Optical Instrument Assembly Supervisor Required: No Drapery Installer: Not Required per policy Accompanied by: Self / Same As Patient Allergies No Known Allergies Allergy (Verified 04/10/23 13:01) Medication List - Last Reconciled 04/10/23 by Nicho Bullard MD cyclobenzaprine 10 mg PO TID PRN lansoprazole 30 mg PO BID sertraline 100 mg PO QAM triamcinolone acetonide 0.5% 1 appl topical TID Tobacco use date assessed: 04/10/23 HPI trouble finding words, memory issues HPI Details memory loss; word loss and headaches PFSH Medical History Duodenal ulcer Hiatal hernia with gastroesophageal reflux Surgical History No pertinent past surgical history Family History Father Past heart attack Parkinsons disease Mother Hypertension Sister No problems noted. Brother No problems noted. Brother No problems noted. Brother No problems noted. Brother No problems noted. 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 Momo Vann, Naomi Schroeder, Tim Blackwell and colleagues, with an educational keny from [employer]. Review of Systems Const Denies chills and Denies weight loss Card Denies chest pain, Denies syncope, Denies irregular heart rhythm and Denies dyspnea Resp Denies chest congestion, Denies cough and Denies dyspnea GI Denies abdominal pain, Denies change in stool character, Denies nausea and Denies vomiting Musc Denies deformity and Denies joint swelling Neuro Denies syncope Physical exam (Primary Care) Vital Signs: Last Vital Signs Pulse 81 04/10/23 13:02 BP 138/64 04/10/23 13:02 Pulse Ox 94 04/10/23 13:02 Oxygen Delivery Method Room Air 04/10/23 13:02 BMI result Body Mass Index 33.2 obesity BMI Assessment/Plan discussion: High BMI High, discussed plan: lifestyle, weight reduction, dietary and physical activity Tobacco/Smoking Status: Tobacco use Status Tobacco use date assessed 04/10/23 04/10/23 13:06 Patient Tobacco Use Status Current everyday Tobacco 04/10/23 13:06 Tobacco use type Cigarette 04/10/23 13:06 e-Cigarette/Vaping Use Never Used 04/10/23 13:06 Are you ready to quit: Yes Tobacco cessation counseling provided: Yes Number of minutes spent counselin CPT code: 89861 - Greater than 10 minutes Thrive Assessment: Date of Thrive Assessment Date Thrive assessed 03/27/23 04/10/23 13:06 Currently or been in a relationship where the following occur: no concerns reported Const General: cooperative, healthy appearing and no acute distress Resp Effort & Inspection: normal respiratory effort Auscultation: clear to auscultation bilaterally Percussion: percussion normal Cardio Jugular venous distension: no JVD Rate: regular rate Rhythm: regular rhythm GI Inspection: Yes normal to inspection Assessment and Plan Assessment & Plan (1) Memory loss: Code(s): R41.3 - Other amnesia Plan: ct and ref Orders: Orders CT head/brain wo IV con Today R41.3 - Other amnesia Referrals Neurology Referral R41.3 - Other amnesia Coding Level of Care Code Est Pt Level 3 (82838) Diagnoses Memory loss R41.3 Additional Codes Vital Signs *Quality* - CPT code: 26245 - Greater than 10 minutes ([id number])
[2023-04-10 13:02] VITALS: BP 138/64; PULSE 81; O2SAT 94; BMI 33.2
== END 2023-04-10 14:24 | disposition home or self-care (01) ==
PROVIDERS: PCP Internal Medicine; Visit Provider Internal Medicine
DX: R41.3 Other amnesia (principal)
CPT/HCPCS: 99213

== ENCOUNTER 2023-04-28 07:19 | Outpatient (REF) | payer BC, SELFPAY ==
--- NOTE | ~2023-04-28 | CT_ITS ---
EXAMINATION: CT HEAD WITHOUT CONTRAST CLINICAL INFORMATION: Amnesia. COMPARISON: Head CT from 09/18/2016. TECHNIQUE: Contiguous axial imaging was performed from the skullbase to vertex without intravenous administration of contrast. This CT examination was performed using dose optimization techniques as appropriate, variously including the following: *Automated exposure control *Adjustment of mA and/or kV according to patient size (this includes techniques or standardized protocols for targeted exams where dose is matched to indication/reason for exam; i.e. extremities or head) *Use of iterative reconstruction technique DLP: 908 mGy-cm. FINDINGS: There is no evidence of acute intracranial hemorrhage or territorial infarction. No abnormal mass effect or midline shift is seen. Kaplan to white matter differentiation is well preserved. No extra-axial fluid collections are identified. The ventricles are normal in size. There is no abnormal attenuation within the brain parenchyma. The osseous structures and soft tissues are normal. The mastoid air cells are well aerated. There is mild mucosal thickening in the left sphenoid sinus cavity. CT/CT head/brain wo IV con IMPRESSION: No acute intracranial pathology. Mild sphenoid sinus mucosal thickening.
== END 2023-04-28 07:20 | disposition home or self-care (01) ==
LOC: HO.CT 07:19
PROVIDERS: Visit Provider Internal Medicine
DX: R41.3 Other amnesia (principal)
CPT/HCPCS: 70450

== ENCOUNTER 2023-05-14 08:26 | Outpatient (AMB) | payer BC, SELFPAY ==
[2023-05-14 08:29] VITALS: BP 120/84; PULSE 71; O2SAT 95; BMI 34.2
--- NOTE | 2023-05-14 08:29 | MHC.OFFVIS ---
Intake Vital Signs 05/14/23 08:29 Height 5 ft 11 in Weight 245 lb BMI 34.2 BP 120/84 Blood Pressure Location Rt brachial Position Sitting Pulse 71 Pulse Source Pulse Oximeter Pulse Oximetry (%) 95 Oxygen Delivery Method Room Air Intake Visit Reasons: INP Headaches - LVM Intake Note: Patient presents for headaches. Patient states A few months ago I had what was diagnosed in the ER as a panic attack, ever since then I've been having consistent throbbing and pounding pain in my temples. I also have issues when trying to speak like I cant finish what I want to say. I have some tremors on both of my hands that started 2 weeks ago. . Allergies No Known Allergies Allergy (Verified 05/14/23 08:35) Medication List - Last Reconciled 05/14/23 by Shira Paiz, OUTBOUND SALES ADVISOR clonazepam 1 mg PO BEDTIME PRN cyclobenzaprine 10 mg PO TID PRN sertraline 150 mg PO QAM trazodone 50 mg PO BEDTIME HPI HPI Comments History of Present Illness Details 52-yr-old male presents for new pt evaluation of headache and cognitive difficulties. Pt is accompanied by his , Nadege Fisher, who assist with Hx. Pt reports that he has been having constant bilateral throbbing headache starting on 03/14 or 03/15/23. Pt reports that on 03/14, he was feeling ok, but then became really angry by something silly , he laid down in bed, tried to get up, and the next thing he knew he was on the floor ( states at the time, he told her he was dizzy). had heard him fall, and when she came upstairs to check on him, he was laying on the floor with his arms crossed- he was shaking and crying. He could not talk or shake his head yes or no. There was no tongue biting or urinary incontinence. His called 911, and the next thing he remembers is being aggravated that he was in the ER and was feeling tired . He was dx'd w/ panic attack. Since the fall- Hehas also been having word findings difficulties- some days better than others. He is having more difficulty with STM recall- needing reminders for appointments, forgetting if he saw his before he left for work. He cannot multi-task. 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 He has also noticed more frustration w/ himself when he cannot talk but not more w/ other people things. He also feels more unsteady- for instance has difficulty bending over to place gold ball on [place] when golfing. He denies any changes in his sleep (but has always had difficulty sleeping) He does have a h/o anxiety and panic attacks. States he has been nervous since childhood. states during a panic attack- he has a look in his eyes, he will not want to move, becomes stuck, or he will tap his face. This can be triggered by heights- say walking on the upper level of the [employer] mall, driving on the highway, closed spaces. Pt states he can stop the facial tapping if he wants, states it is not rhythmic. Normally the panic attack does not prevent him from doing what he wants. When he is irritated, he tends to pull his ear or his eyebrows. 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 Headache questionnaire: Previous work-up? 03/27/23, ESR- 7 NL 04/28/23, Head CT, No acute intracranial pathology. Mild sphenoid sinus mucosal thickening. Approx 10 yrs ago- EEG- normal, per pt. Typical headache characteristics: Prodrome symptoms? unaware- constant Aura? Denies Location, quality, characteristics? Bilateral temporal throbbing Pain intensity? Varies 4-15/10 Associated symptoms? maybe some photophobia, phonophobia, tremor, off-balance, activity intolerance Focal weakness, Parethesias, Autonomic s/s? None Postdrome? n/a Triggers? None Any positional, valsalva, exertional, sexual activity triggers? Pins and needles in his feet when the headache is worse. Time of day? No specific time of day headache is worse Duration/Frequency? Constant How does headache impact your life? limiting his ability to do his usual activities- say finish a round of golf. Current acute medication use/interventions: A handful of Tylenol - does not help, cyclobenzaprine- makes him sleep for 2 hrs Previous acute medication use: None Current preventative medication use: None Previous preventative medication use: None Non-pharmacological interventions: none Pt denies- vision changes, hyposmia, leg cramping, restlessness during the day. Other history of headache disorder? None History of musculoskeletal disorders or injury? Occasionally has a mid-back tightness- if overactive History of concussion/head injury? Has had 2 mild self-limited concussions as a teenager History of mood disorder? Anxiety and Panick attacks. 22 yrs ago- had a severe panic attack and could not work for 2 months ago History of sleep disorder? Never sleeps well. Endorses snoring, fatigue. He runs and twitches in his sleep. Denies parasomnias. He notes he probably would not tolerate PAP tx. History of respiratory disease? None History of CV disease? None History of coagulopathy? None History of endocrine or metabolic disease? None History of seizure? None. No h/o staring off. History of GI disorder? Has had a GI ulcer- off and on since age 17. Lee's esophagus. Family history of migraine or other headache disorder? His father had headaches, Parkinson's, stroke- passed in his 70s. His mother had LBD- passed 2 yrs ago at 83. His older brother has MS- dx'd in his 50s. He has another brother (12 yrs older)- stroke, epilepsy- started 10 yrs ago. COUNTS INCLUDE 234 BEDS AT THE [facility] Medical History Duodenal ulcer Hiatal hernia with gastroesophageal reflux Surgical History No pertinent past surgical history Family History Father Past heart attack Parkinsons disease Mother Hypertension Sister No problems noted. Brother No problems noted. Brother No problems noted. Brother No problems noted. Brother No problems noted. 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 Head: Yes normocephalic Resp Effort & Inspection: normal respiratory effort and able to speak in complete sentences Neuro Other: No visible tremor. BUE CHRISTOS- mild decreased fluidity, more so on left. BUE- no significant tone BUE FFM- intact Finger-nose- mild hypometria on left (both w/ pt finger nose and pt to examiner finger-nose) Foot taps- mild decreased fluidity on left Stand easily, slight stoop, left shoulder drooped, stride ok, steady gait. General: patient oriented x3 Cranial nerves: Yes CN's II-XII intact bilaterally Cognition (Neuro): normal cognition Motor exam (neuro): 5/5 motor strength present throughout Deep tendon reflexes (DTR's): Right triceps reflex intensity grade: 2+, Left triceps reflex intensity grade: 2+, Rt Biceps (C5, C6): 2+, Left biceps reflex intensity grade: 2+, Right brachioradialis reflex intensity grade: 2+, Left brachioradialis reflex intensity grade: 2+, Right patellar reflex intensity grade: 2+ and Left patellar reflex intensity grade: 2+ Pupils: Normal pupillary reactivity/response: bilateral Psych Appearance: grossly normal Mental Status: mental status grossly normal Speech and movement: Normal speech and movement present Affect: normal affect Attitude: cooperative Thought process: Normal thought process present Assessment & Plan Assessment & Plan (1) Headache: Comment: bilateral temporal throbbing Code(s): R51.9 - Headache, unspecified (2) Concussion: Comment: Pt's headache, cognitive difficulties, balance difficulties s/p fall- raises suspicion for concussion. Code(s): S06.0XAA - Concussion with loss of consciousness status unknown, initial encounter (3) Memory loss: Code(s): R41.3 - Other amnesia (4) Obesity: Code(s): E66.9 - Obesity, unspecified (5) Fatigue: Code(s): R53.83 - Other fatigue (6) Sleep difficulties: Code(s): G47.9 - Sleep disorder, unspecified (7) Restless sleeper: Code(s): G47.9 - Sleep disorder, unspecified (8) Snoring: Code(s): R06.83 - Snoring Plan Will recheck ESR, and check labs CBC, CMP, CRP. Upon review, consider temporal artery bx. Pt advised to undergo brain MRI w/wo (open MRI w/ anxiety pre-medication) as pt is experiencing cognitive difficulties, tremor, headache s/p fall likely d/t panic attack, but other etiologies possible- ie TIA, seizure. Pt has a hx of smoking. Pt has a strong family hx of neurological disorders- father had PD, Mother- LBD, brother- MS, brother- stroke and seizure. Pt advised to undergo in-lab PSG to assess for sleep apnea and PLMS. Start OT- for post-concussive cognitive tx. For acute headache treatment: Discussed importance of taking acute medications at the first sign of headache, however stressed importance of avoiding acute medication overuse (especially with combined headache medications). May use cyclobenzaprine prn Trial Sumatriptan 100mg tab, 1/2 - 1 tab (50-100mg) at onset of headache, may repeat in 2 hours. Max of 2 tabs (200mg) per 24 hours. May adjunct with OTC Tylenol 650mg q 4 hours, Ibuprofen 600mg q 6 hours, or Naproxen 440mg q 12 hrs prn. Reviewed potential adverse effects of triptans, including but not limited to nausea, fatigue, chest tightness/tingling (usually passes within a few minutes), medication overuse headaches. Previous acute migraine medication trials: Tylenol- ineffective Acute migraine medication contraindications: None at this time For headache prevention medication: Start Magnesium 400mg qhs Start Amitriptyline 10-20mg qhs. Reviewed potential adverse effects of TCAs, including but not limited to fatigue, cardiac arrhythmias, mood changes. Previous migraine prevention medication trials: None Migraine prevention medication contraindications: None at this time Will f/u on review of above , and plan to follow-up in clinic in 3 months or sooner prn. Orders: Orders Erythrocyte Sedimentation Rate Today R51.9 - Headache, unspecified CRP High Sensitivity Today R51.9 - Headache, unspecified Comprehensive Met. Panel Today R51.9 - Headache, unspecified Complete Blood Count Auto Diff Today R51.9 - Headache, unspecified OT Evaluation and Treatment Today R41.3 - Other amnesia, R51.9 - Headache, unspecified, S06.0XAA - Concussion with loss of consciousness status unknown, initial encounter RT PSG in-lab sleep study Today E66.9 - Obesity, unspecified, G47.9 - Sleep disorder, unspecified, R06.83 - Snoring, R53.83 - Other fatigue MR head/brain wo/w con Today R25.1 - Tremor, unspecified, R27.8 - Other lack of coordination, R41.3 - Other amnesia, R51.9 - Headache, unspecified Medications: New sumatriptan succinate (0.5 - 1 x 100 mg) 50 - 100 mg orally at onset of headache, may repeat in 2 hrs PRN; max 2 tabs per day or 4 tabs/week (may take with Ibuprofen) 30 days 12 tabs 6RF migraine headache magnesium 500 mg (2 x 250 mg) PO BEDTIME 30 days 60 tabs 3RF alprazolam 0.25 mg orally 1 tab 30 minutes prior to MRI, may repeat x's 1; 1 day 2 tabs 0RF amitriptyline 10 - 20 mg (1 - 2 x 10 mg) PO BEDTIME 30 days 60 tabs 3RF Changed From sertraline 100 mg PO QAM 90 tabs 8RF To sertraline 150 mg PO QAM Coding Level of Care Code New Pt Level 4 (22107) Diagnoses Headache R51.9 Concussion S06.0XAA Memory loss R41.3 Obesity E66.9 Fatigue R53.83 Sleep difficulties G47.9 Restless sleeper G47.9 Snoring R06.83
== END 2023-05-14 10:12 | disposition home or self-care (01) ==
PROVIDERS: PCP Internal Medicine; Visit Provider Nurse Practitioner Family
DX: R51.9 Headache, unspecified (principal); S06.0XAA Concussion with loss of consciousness status unknown, initial encounter; R41.3 Other amnesia; E66.9 Obesity, unspecified; R53.83 Other fatigue; G47.9 Sleep disorder, unspecified; R06.83 Snoring
CPT/HCPCS: 99204

== ENCOUNTER → 2023-05-14 08:26 | Outpatient (BNVA) | payer BC, SELFPAY | PROVIDERS: PCP Internal Medicine; Visit Provider Nurse Practitioner Family ==

== ENCOUNTER 2023-05-16 09:04 | Outpatient (REF) | payer BC, SELFPAY ==
[2023-05-16 09:11] LABS: MANUAL DIFF FLAG NO
[2023-05-16 09:36] LABS: Basophils Percent Auto 0.7 % (0-2); Eosinophils Absolute Auto 0.1 X10*3/uL (0.0-0.4); Eosinophils Percent Auto 2.2 % (0-4); Hematocrit 47.4 % (42.0-52.0); Hemoglobin 15.6 g/dl (14.0-18.0); Imm Gran Abs Auto 0.02 X10*3/uL (0.00-0.03); Imm Gran Pct Auto 0.4 % (0.0-0.4); Lymphocytes Absolute Auto 1.8 X10*3/uL (1.2-4.9); Lymphocytes Percent Auto 33.8 % (20-40); Mean Corpuscular HGB Conc 32.9 g/dl (31.0-36.0); Mean Corpuscular Hemoglobin 30.1 pg (27.0-33.0); Mean Corpuscular Volume 91.3 fL (80.0-98.0); Mean Platelet Volume 9.3 fL (9.4-12.4); Monocytes Absolute Auto 0.3 X10*3/uL (0.1-1.2); Monocytes Percent Auto 6.3 % (2-11); Neutrophils Percent Auto 56.6 % (45-73); Platelet Count 283 X10*3/uL (160-400); Red Blood Count 5.19 X10*6/uL (4.60-5.80); Red Cell Distribution Width 13.1 % (11.0-16.0); White Blood Count 5.4 X10*3/uL (4.8-10.8)
[2023-05-16 09:58] LABS: Alanine Aminotransferase 18 U/L (0-40); Albumin Level 4.3 g/dL (3.5-5.0); Alkaline Phosphatase 56 U/L (39-117); Anion Gap 12 (12-20); Aspartate Amino Transferase 18 U/L (5-37); Bilirubin Total 0.5 mg/dL (0.0-1.0); Blood Urea Nitrogen 9 mg/dL (9-16); Calcium 9.3 mg/dL (8.4-10.2); Carbon Dioxide 27 mmol/L (22-29); Chloride 104 mmol/L (96-108); Estimated Glomerular Filt Rate > 60; Glucose Random 136 mg/dL (60-115); Potassium 4.5 mmol/L (3.3-5.1); Sodium 138 mmol/L (135-145); Total Protein 7.5 g/dL (6.5-8.0)
[2023-05-16 10:32] LABS: Erythrocyte Sedimentation Rate 6 MM/HR (0-15)
[2023-05-18 18:58] LABS: CRP High Sensitivity 3.5 mg/L
== END 2023-05-16 09:05 | disposition home or self-care (01) ==
LOC: HO.LAB 09:04
PROVIDERS: PCP Internal Medicine; Visit Provider Nurse Practitioner Family
DX: R51.9 Headache, unspecified (principal)
CPT/HCPCS: 36415; 80053; 85025; 85652; 86141

== ENCOUNTER → 2023-06-01 20:30 | Outpatient (REF) | payer BC, SELFPAY | LOC: HO.SL 20:30 | PROVIDERS: PCP Internal Medicine; Visit Provider Nurse Practitioner Family | DX: E66.9 Obesity, unspecified (principal); R53.83 Other fatigue; G47.9 Sleep disorder, unspecified; R06.83 Snoring | CPT/HCPCS: 95810 ==

== ENCOUNTER → 2023-06-01 23:32 | Outpatient (BNV) | payer BC, SELFPAY | PROVIDERS: PCP Internal Medicine; Visit Provider Psychiatry & Neurology Neurology | DX: R06.83 Snoring (principal); R53.83 Other fatigue | CPT/HCPCS: 95810 ==

== ENCOUNTER 2023-08-06 10:00 | Outpatient (RCR) | payer BC, SELFPAY ==
--- NOTE | 2023-06-03 13:49 | MHC.OT.EP ---
[address] [phone] Occupational Therapy Plan of Care Patient Name: Nacho Chacko Date of Evaluation: 06/03/23 Diagnosis: Post-concussion syndrome Pain Location: Headaches that originate in bilateral temples; pounding/throbbing in nature, pressure Current: 6/10 Best: 3/10 Worst: 10/10 Pain Score: 6 Pain Scale Used: Numeric (0 - 10) Aggravating Factors: Loud noises, screen time Reports he wakes up with headache most days Alleviating Factors: Muscle relaxers Assessment: Pt is a 52 y/o male referred to OT w/ ? post-concussion syndrome after a reported panic attack and fall. 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 Reports difficulty with concentrating and multi-tasking, word finding difficulties, stuttering, and feeling like he's in a fog - all making the work day challenging. Pt reports increased irritability and low stress tolerance recently. New onset of tremors in bilateral hands (resting), making typing difficult. Blurry vision, requiring frequent eye breaks from screens. Daily headaches are his most pressing concern, reaching 10/10 with constant throbbing pain. Pt typically works w/ 4 computer monitors and multi-tasks with ease. He is only able to use one monitor currently. Brain imaging is reportedly negative for acute changes. Pt also had recent sleep study for which he is awaiting results. Nacho would benefit from skilled OT to address noted barriers and assist in return to [facility]. Frequency and Duration: The patient will be seen 2x/wk for 6 weeks Short Term Goals: Decrease headache frequency/intensity by 50% Pt will be educated in and trial sleep hygiene strategies Trial EFT and breathing techniques for stress management Pt. will utilize 2-3 remedial and compensatory strategies to improve memory Data Warehouse Specialist Goals: IND with knowledge of COLON triggers and reduction strategies IND with sleep hygiene strategies reporting >5 hours of consecutive sleep IND with stress management techniques Improved QOL as evidence by Post-Concussion scale of <80 Pt will complete complex ps/r tasks without requiring reminders of task instructions 90% of the time. Pt will complete alternating attention tasks with >90% accuracy and with no increase in concussion symptoms. Treatment Plan: Therapeutic Exercise Therapeutic Activity Home Exercise Program Neuro Re-ed Patient Education Other (see comments) Cognitive rehab including headache management, COMPUTER METHODS ANALYST therapy, stress management, sleep hygiene, etc Electronically Signed By: Vanessa Lopez MS OTR/L Please Sign and return to therapist. Thank you once again for your referral.
== END 2023-11-12 13:45 | disposition home or self-care (01) ==
LOC: HO.OT 10:00
PROVIDERS: PCP Internal Medicine; Visit Provider Nurse Practitioner Family
DX: S06.0XAA Concussion with loss of consciousness status unknown, initial encounter (principal); R41.3 Other amnesia; R51.9 Headache, unspecified
CPT/HCPCS: 97110; 97112; 97165; 97530

== ENCOUNTER 2023-08-27 11:14 | Outpatient (AMB) | payer BC, SELFPAY ==
[2023-08-27 11:21] VITALS: BP 122/80; PULSE 72; O2SAT 96; BMI 36.9
--- NOTE | 2023-08-27 11:21 | A.OFFVIS_ITS ---
Intake Vital Signs 08/27/23 11:21 Height 5 ft 11 in Weight 264 lb 6 oz BMI 36.9 BP 122/80 Blood Pressure Location Rt brachial Position Sitting Pulse 72 Pulse Source Pulse Oximeter Pulse Oximetry (%) 96 Oxygen Delivery Method Room Air Intake Visit Reasons: 3m follow up Headaches-LVM Intake Note: Patient presents for 3 mo fu-Headaches Supervisor Major Appliance Assembly Required: No Accompanied by: Spouse Allergies No Known Allergies Allergy (Verified 08/27/23 11:23) Medication List - Last Reconciled 08/27/23 by JOEY Yeager alprazolam 0.25 mg orally 1 tab 30 minutes prior to MRI, december repeat x's 1; 1 d ay amitriptyline 50 mg (2 x 25 mg) PO BEDTIME 30 days clonazepam 1 mg PO BEDTIME PRN cyclobenzaprine 10 mg PO TID PRN magnesium 500 mg (2 x 250 mg) PO BEDTIME 30 days propranolol ER 60 mg PO BEDTIME 30 days rizatriptan 5 - 10 mg (0.5 - 1 x 10 mg) PO Q2H PRN 21 days sertraline 150 mg PO QAM ubrogepant (Ubrelvy) 50 - 100 mg (0.5 - 1 x 100 mg) PO ONCE PRN 30 days HPI HPI Comments History of Present Illness Details 53-yr-old male presents for f/u visit, a ccompanied by his . Pt did have a mild bout of Covid-19 a couple of weeks ago. Pt and notes that pt is now doing better in many aspects, but still having some issues. Since the last visit, pt continued to have bothersome headaches, cognitive difficulties, balance difficulties. His brain MRI w/wo was normal, however as pt continued to have severe headcahes, we advised him to undergo Brain MRA- which raised suspicion for a 2mm right INDIRA saccular aneurysm. F/u Head CTA did confirm this finding. Pt was referred to Dr Mendoza for neurosurgical consult- they have advised clinical monitoring w/ 1 yr f/u head CTA. As pt was continuing to have balance issues, which were worsening and included difficulty walking up stairs, and some cognitive difficulties, such as bradyphrenia, which seemed more c/w a movement d/o rather than post-concussive s/s, pt was advised to undergo Datscan. Datscan was was mildly positive. As the headcahes continued to be severe, pt was tried on Amitriptyline, Propr anolol, Prednisone taper, Elyxyb samples, Mag, Rizatriptan, Sumatriptan- w/o much effect. More recently, pt started Ubrelvy which has been much more effective. Since starting Ubrlevy, the pressure headaches and associated photophobia and phonophobia have reduced. The headaches are milder but still constant.r. When the headache starts to increase in intensity, Ubrelvy almost makes it completely go away. He has completed OT for cognitive tx- however missed the last 2 appoints d/t having Covid. He is still having cognitive difficulties- getting lost mid-conversation. He is having difficulty navigate between his 2 computer screens- such as dragging the mouse from screen to screen. His voice is soft/hoarse- notes it is even softer after physical activity- has been noticing this for approx 5 yrs. Feels dizzy when he tries to get up from the bed. His balance is still off. He has started having difficulty going up stairs- has to go up/down 1 leg at a time. He has recently noticed right mid to distal thigh numbness- not pain. His sleep is still off- sleeps well for a night, then the next night sleeps fairly, then does not sleep well- the cycle then repeats himself. He endorses nocturnal burping, reflux at times. He takes 3 cups of coffee per day- last at 2pm. He drinks diet soda w/ dinner- between 4-5pm. He does take water as well. No usual alcohol intake. Does have a h/o Lee's esophagitis and chronic GI issues since adolescence. Interval work-up: 05/16/23: CBC, CMP, ESR- WNL. CRP- 3.5 H 06/18/23, In-Lab PSG: Sleep efficiency 5 5%, PLMS 6/hr w/ PLMS arousal index 0 .9/hr, AHI 0/hr, REM AHI 0/hr, O2 katlyn 91% w/ average SpO2 94%. 05/21/13, Brain MRI w/wo: No findings of an acute intracranial process or abnormal enhancement. 06/24/23, Brain MRI/MRA w/o: Questionabl e vessel tortuosity versus 2 mm saccular aneurysm distal A2 segment of the right INDIRA. 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 Remainder of the intracranial vessels demonstrate no hemodynamically significant stenosis, focal aneurysm, or discrete vascular cutoff 07/14/23, DaTscan: slight decreased acti vity in the posterior putamen bilaterally. [facility] Medical History Duodenal ulcer Hiatal hernia with gastroesophageal reflux Surgical History No pertinent past surgical history Family History Father Past heart attack Parkinsons disease Mother Hypertension Sister No problems noted. Brother No problems noted. Brother No problems noted. Brother No problems noted. Brother No problems noted. 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 BUE CHRISTOS- mild decreased fluidity, more so on left. BUE- no significant tone BUE FFM- intact Finger-nose- improved- very mild left finger-nose (pt - pt) easily corrected today. Foot taps- Decreased fluidity on left Stand easily, slightly unsteady upon standing, slight stoop, left shoulder drooped, stride ok, steady gait. 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 1 yr f/u Head CTA due in Jul 2024 w/ Dr Mendoza. Code(s): I67.1 - Cerebral aneurysm, nonruptured (3) Concussion: Comment: Pt's headache, cognitive difficulties, balance difficulties s/p fall on 03/14/23. Code(s): S06.0XAA - Concussion with loss of consciousness status unknown, initial encounter (4) Sleep difficulties: Comment: ? impaired sleep hygiene, ? nocturnal acid reflux Code(s): G47.9 - Sleep disorder, unspecified (5) Parkinson's disease without dyskinesia: Comment: Likely early PD in setting of family h/o PD. DaTscan, 07/14/23, slight decreased activity in the posterior putamen bilaterally. Code(s): G20.A1 - Parkinson's disease without dyskinesia, without mention of fluctuations Plan Reviewed interval work-up- MRI/MRA Head and head CTA: 2 mm saccular aneurysm distal A2 segment of the right INDIRA. DaTscan- mildly positive. This likely indicates an early PD dx- pt has asymmetric decreased LUE CHRISTOS, Left foot taps, hoarse/soft voice, balance/gait changes, cognitive diff (though may be r/t concussion as well), and has string family hx PD/LBD. Information given on PD resources. Would not start dopaminergic tx at this time. Increase exercise. Will reach out to local [facility] program at [facility] to see when next course is offered. ? For acute headache treatment: Continue Ubrelvy prn. May use cyclobenzaprine prn Previous acute migraine medication trials: Tylenol- ineffective. Sumatriptan- ineffective. Rizatripatn- not fully effective. Elyxyb- samples- ineffective. Acute migraine medication contraindications: None at this time ? For headache prevention medication: Magnesium 400mg qhs Amitriptyline 50mg qhs. Propranolol Er 60mg qhs- would not increase further d/t orthostatic dizziness. Start Emgality 240mg x's 1 for loading dose, then 120mg sc q month. Previous migraine prevention medication trials: as above. Migraine prevention medication contraindications: None at this time For sleep: Reviewed sleep hygiene tips- Limit caffeine intake- avoid cola/coffee w/in 6-8 hrs of bedtime. Limit carbonated beverages in the evening. Sleep w/ head elevated if possible. Future considerations- treating nocturan acid reflux s/s w/ PPI/H2 antagonist ? ? Follow-up in clinic in 3 months or sooner prn. Medications: New galcanezumab-gnlm (Emgality Pen) loading dose 120 mg subcut ONCE 30 days 2 mL 0RF Coding Level of Care Code Est Pt Level 5 (18387) Diagnoses Migraine without aura G43.009 Cerebral aneurysm I67.1 Concussion S06.0XAA Sleep difficulties G47.9 Parkinson's disease without dyskinesia G20.A1 Time Spent (min) 70 Comment 50 min spent w/ pt/, 20min spent reviewing chart/reports/documenting/coordinating care
== END 2023-08-27 12:52 | disposition home or self-care (01) ==
PROVIDERS: PCP Internal Medicine; Visit Provider Nurse Practitioner Family
DX: I67.1 Cerebral aneurysm, nonruptured (principal); G43.009 Migraine without aura, not intractable, without status migrainosus; G20.A1 Parkinson's disease without dyskinesia, without mention of fluctuations; R41.89 Other symptoms and signs involving cognitive functions and awareness; S06.0XAD Concussion with loss of consciousness status unknown, subsequent encounter; G47.9 Sleep disorder, unspecified
CPT/HCPCS: 99215

== ENCOUNTER → 2023-08-27 11:14 | Outpatient (BNVA) | payer BC, SELFPAY | PROVIDERS: PCP Internal Medicine; Visit Provider Nurse Practitioner Family | DX: R51.9 Headache, unspecified (principal) ==

== ENCOUNTER 2023-10-19 11:52 | Outpatient (REF) | payer BC, SELFPAY ==
[2023-10-19 12:04] LABS: MANUAL DIFF FLAG NO
[2023-10-19 12:32] LABS: Basophils Percent Auto 0.6 % (0-2); Eosinophils Absolute Auto 0.1 X10*3/uL (0.0-0.4); Eosinophils Percent Auto 2.5 % (0-4); Hematocrit 44.3 % (42.0-52.0); Hemoglobin 14.5 g/dl (14.0-18.0); Imm Gran Abs Auto 0.01 X10*3/uL (0.00-0.03); Imm Gran Pct Auto 0.2 % (0.0-0.4); Lymphocytes Absolute Auto 1.7 X10*3/uL (1.2-4.9); Lymphocytes Percent Auto 35.7 % (20-40); Mean Corpuscular HGB Conc 32.7 g/dl (31.0-36.0); Mean Corpuscular Hemoglobin 29.3 pg (27.0-33.0); Mean Corpuscular Volume 89.5 fL (80.0-98.0); Monocytes Absolute Auto 0.4 X10*3/uL (0.1-1.2); Monocytes Percent Auto 9.3 % (2-11); Neutrophils Absolute Auto 2.4 x10*3/uL (2.0-8.3); Neutrophils Percent Auto 51.7 % (45-73); Platelet Count 267 X10*3/uL (160-400); Red Blood Count 4.95 X10*6/uL (4.60-5.80); Red Cell Distribution Width 13.4 % (11.0-16.0); White Blood Count 4.7 X10*3/uL (4.8-10.8)
[2023-10-19 12:45] LABS: Estimated Average Glucose 97 mg/dL
[2023-10-19 13:31] LABS: Alanine Aminotransferase 23 U/L (0-40); Albumin Level 4.3 g/dL (3.5-5.0); Alkaline Phosphatase 52 U/L (39-117); Anion Gap 11 (12-20); Aspartate Amino Transferase 20 U/L (5-37); Bilirubin Total 0.4 mg/dL (0.0-1.0); Blood Urea Nitrogen 22 mg/dL (9-16); Calcium 9.8 mg/dL (8.4-10.2); Carbon Dioxide 27 mmol/L (22-29); Chloride 106 mmol/L (96-108); Estimated Glomerular Filt Rate > 60; Glucose Random 77 mg/dL (60-115); Potassium 5.2 mmol/L (3.3-5.1); Sodium 139 mmol/L (135-145); Total Protein 7.7 g/dL (6.5-8.0)
[2023-10-19 13:33] LABS: Rheumatoid Factor < 13.0 IU/mL (<15.0)
[2023-10-19 13:43] LABS: Erythrocyte Sedimentation Rate 10 MM/HR (0-15)
[2023-10-19 13:47] LABS: TSH reflex Free T4 0.78 uIU/mL (0.32-4.0)
[2023-10-19 14:03] LABS: Vitamin B12 266 pg/mL (200-900)
[2023-10-20 13:23] LABS: CRP High Sensitivity 3.3 mg/L
[2023-10-21 17:44] LABS: Amitriptyline, Serum 25 mcg/L; Nortriptyline, Serum 17 mcg/L; Total (Ami+Nor) 42 mcg/L (100-250)
[2023-10-22 13:27] LABS: Anti Nuclear Antibody Screen NEGATIVE (NEGATIVE)
== END 2023-10-19 11:53 | disposition home or self-care (01) ==
LOC: HO.LAB 11:52
PROVIDERS: PCP Internal Medicine; Visit Provider Nurse Practitioner Family
DX: Z12.5 Encounter for screening for malignant neoplasm of prostate (principal); R41.3 Other amnesia; R20.2 Paresthesia of skin; R25.1 Tremor, unspecified
CPT/HCPCS: 36415; 80053; 80335; 82550; 82607; 82746; 83036; 84443; 85025; 85652; 86038; 86141; 86431

== ENCOUNTER 2023-10-26 07:46 | Outpatient (REF) | payer BC, SELFPAY ==
[2023-10-26 08:37] LABS: Anion Gap 8 (12-20); Blood Urea Nitrogen 18 mg/dL (9-16); Calcium 10.5 mg/dL (8.4-10.2); Carbon Dioxide 29 mmol/L (22-29); Chloride 105 mmol/L (96-108); Estimated Glomerular Filt Rate > 60; Glucose Random 101 mg/dL (60-115); Potassium 5.1 mmol/L (3.3-5.1); Sodium 137 mmol/L (135-145)
[2023-10-27 16:33] LABS: Homocysteine 14.5 umol/L (<11.4)
[2023-10-29 14:54] LABS: Methylmalonic Acid 338 nmol/L (87-318)
== END 2023-10-26 07:47 | disposition home or self-care (01) ==
LOC: HO.LAB 07:46
PROVIDERS: PCP Internal Medicine; Visit Provider Nurse Practitioner Family
DX: R20.2 Paresthesia of skin (principal); R79.89 Other specified abnormal findings of blood chemistry; E87.5 Hyperkalemia
CPT/HCPCS: 36415; 80048; 83090; 83921

== ENCOUNTER 2023-11-26 07:58 | Outpatient (AMB) | payer BC, SELFPAY ==
--- NOTE | 2023-11-26 08:04 | MHC.OFFVIS ---
Intake Vital Signs 11/26/23 08:09 Height 5 ft 11 in Weight 240 lb BMI 33.5 BP 118/74 Blood Pressure Location Rt brachial Position Sitting Pulse 96 Pulse Source Pulse Oximeter Pulse Oximetry (%) 99 Oxygen Delivery Method Room Air Intake Visit Reasons: 3 mo f/u -Headaches-Conf Intake Note: Patient presents for 3 month follow up. My legs are weak, very forgetfull,diffuclty talking and horrible mood swings Allergies No Known Allergies Allergy (Verified 11/26/23 08:10) Medication List - Last Reconciled 11/26/23 by JOEY Yeager alprazolam 0.25 mg orally 1 tab 30 minutes prior to MRI, december repeat x's 1; 1 day amitriptyline 50 mg (2 x 25 mg) PO BEDTIME 30 days clonazepam 1 mg PO BEDTIME PRN cyanocobalamin (vitamin B-12) 500 mcg PO DAILY 30 days cyclobenzaprine 10 mg PO TID PRN galcanezumab-gnlm (Emgality Pen) 120 mg subcut ONCE 30 days galcanezumab-gnlm (Emgality) 120 mg subcut ONCE 30 days magnesium 500 mg (2 x 250 mg) PO BEDTIME 30 days propranolol ER 60 mg PO BEDTIME 30 days rasagiline 1 mg PO DAILY 30 days rizatriptan 5 - 10 mg (0.5 - 1 x 10 mg) PO Q2H PRN 21 days sertraline 150 mg PO QAM ubrogepant (Ubrelvy) 50 - 100 mg (0.5 - 1 x 100 mg) PO ONCE PRN 30 days HPI HPI Comments History of Present Illness Details 53-yr-old male presents for f/u visit. Pt has been having BLE, but more on right, numbing and burning. On the right- it is more constant, starts in upper anterior thigh and moves into the mid-calf both anterior and posteriorly. In the left, it is more intermittent, stays in the upper anterior thigh. Pt had reached out to the office w/ this- checked labs- notable for low normal B-12 w/ mildly elevated homocysteine and MMA levels. Thus, pt started B-12 supplement approx 1 month ago, but he has not noticed any benefit yet. He has had an approx 30lb weight loss. He is exercising regularly- going to the gym- running/exercising in the pool. Going to [place]. He tried Spin- but this exacerbates this pain. Playing basketball can do this as well. He is still off-balance. He is still dizzy. He recently had a fall, he passed out. He had gotten up from bed in the middle of the night, to void, while voiding, he passed out. His checked his BP was 60/40. She gave him Gatorade and fluids. He tried to get up again, was dizzy/lightheaded. Then took more fluids, and was able to get up. He typically drinks >140oz of water per day. If he stands up, he will have room spinning dizziness. He did stop the Propranolol ER approx 5 days ago. He has room spinning dizziness when he rolls over in bed. He is still not sleeping. Clonazepam was not effective Mood- frustrated, not himself. Feels his voice is only strong when angry. The headaches have improved. Not as severe. Using the Emgality. Using the Ubrelvy prn. He is not sure if the Rasagaline is doing anything- after an 8 wk trial. Previous work-up: 05/16/23: CBC, CMP, ESR- WNL. CRP- 3.5 H 06/18/23, In-Lab PSG: Sleep efficiency 55%, PLMS 6/hr w/ PLMS arousal index 0.9/hr, AHI 0/hr, REM AHI 0/hr, O2 katlyn 91% w/ average SpO2 94%. 05/21/13, Brain MRI w/wo: No findings of an acute intracranial process or abnormal enhancement. 06/24/23, Brain MRI/MRA w/o: Questionable vessel tortuosity versus 2 mm saccular aneurysm distal A2 segment of the right INDIRA. 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 Remainder of the intracranial vessels demonstrate no hemodynamically significant stenosis, focal aneurysm, or discrete vascular cutoff 07/14/23, DaTscan: slight decreased activity in the posterior putamen bilaterally. [facility] Medical History Duodenal ulcer Hiatal hernia with gastroesophageal reflux Surgical History No pertinent past surgical history Family History Father Past heart attack Parkinsons disease Mother Hypertension Sister No problems noted. Brother No problems noted. Brother No problems noted. Brother No problems noted. Brother No problems noted. 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 BUE CHRISTOS- mild decreased fluidity, more so on left. BUE- no significant tone BUE FFM- intact Foot taps- Decreased fluidity on left Stand easily, steadier upon standing, less stoop, left shoulder drooped, stride ok, steady gait w/ cane. DTRs dulled throughout. MS 5/5 General: Normal light touch and pain sensation Assessment & Plan Assessment & Plan (1) Syncope: Code(s): R55 - Syncope and collapse (2) Family history of cardiac arrest: Code(s): Z82.49 - Family history of ischemic heart disease and other diseases of the circulatory system (3) Vertigo: Code(s): R42 - Dizziness and giddiness (4) Paresthesia: Code(s): R20.2 - Paresthesia of skin (5) Parkinson's disease without dyskinesia: Comment: Likely early PD in setting of family h/o PD. Amy, 07/14/23, slight decreased activity in the posterior putamen bilaterally. Code(s): G20.A1 - Parkinson's disease without dyskinesia, without mention of fluctuations Plan For syncope/dizziness: Slowly decrease water intake to goal of 64 oz per day, including electrolyte replacement drinks. He has stopped the Propranolol ER. Stop the Rasagiline- as this can cause OH. Check Orthostaic BP & HR- pt has a BP cuff at home- he will check at home. Cardiology consult- note pt's brother recently from sudden cardiac event. Start Vestibular tx. For BLE pain and paresthesias: Stretching/foam rolling w/ retail personal banker at [employer]. Check labs. For now, continue to walk w/ a cane. EMG/NCS- BLE For PD: Pt did not see benefit from Rasagiline- although on exam, there is some improvement seen. However, will stop Rasagiline for now as again it can increase risk for OH. Continue exercise. Trazodone for sleep For acute headache treatment: Continue Ubrelvy prn. May use cyclobenzaprine prn Previous acute migraine medication trials: Tylenol- ineffective. Sumatriptan- ineffective. Rizatripatn- not fully effective. Elyxyb- samples- ineffective. Acute migraine medication contraindications: None at this time ? For headache prevention medication: Magnesium 400mg qhs Amitriptyline 50mg qhs- consider decreasing in f/u. Stop Propranolol Er 60mg qhs d/t orthostatic dizziness. Continue Emgality 120mg sc q month as pt is having good clinical effect. Previous migraine prevention medication trials: as above. Migraine prevention medication contraindications: None at this time For sleep: Trial Trazodone 50mg qhs. Information shared on CBT-[facility] resources. sleep hygiene tips- Future considerations- treating noctural acid reflux s/s w/ PPI/H2 antagonist ? ? Follow-up in clinic in 3 months or sooner prn. Orders: Orders Complete Blood Count Auto Diff Today E87.5 - Hyperkalemia, R20.2 - Paresthesia of skin, R25.1 - Tremor, unspecified, R79.89 - Other specified abnormal findings of blood chemistry Vitamin B12 and Folate Today E87.5 - Hyperkalemia, R20.2 - Paresthesia of skin, R25.1 - Tremor, unspecified, R79.89 - Other specified abnormal findings of blood chemistry Vitamin B3 (Niacin) Today E87.5 - Hyperkalemia, R20.2 - Paresthesia of skin, R25.1 - Tremor, unspecified, R79.89 - Other specified abnormal findings of blood chemistry Comprehensive Met. Panel Today E87.5 - Hyperkalemia, R20.2 - Paresthesia of skin, R25.1 - Tremor, unspecified, R79.89 - Other specified abnormal findings of blood chemistry PT Evaluation and Treatment Today R42 - Dizziness and giddiness Vitamin B1 Today E87.5 - Hyperkalemia, R20.2 - Paresthesia of skin, R25.1 - Tremor, unspecified, R79.89 - Other specified abnormal findings of blood chemistry Vitamin B2 (Riboflavin) Today E87.5 - Hyperkalemia, R20.2 - Paresthesia of skin, R25.1 - Tremor, unspecified, R79.89 - Other specified abnormal findings of blood chemistry Vitamin B5 (Pantothenic Acid) Today E87.5 - Hyperkalemia, R20.2 - Paresthesia of skin, R25.1 - Tremor, unspecified, R79.89 - Other specified abnormal findings of blood chemistry Vitamin B6 Today E87.5 - Hyperkalemia, R20.2 - Paresthesia of skin, R25.1 - Tremor, unspecified, R79.89 - Other specified abnormal findings of blood chemistry Creatine Kinase Total Today E87.5 - Hyperkalemia, R20.2 - Paresthesia of skin, R25.1 - Tremor, unspecified, R79.89 - Other specified abnormal findings of blood chemistry NE electromyogram (EMG) Today M79.604 - Pain in right leg, M79.605 - Pain in left leg, R20.2 - Paresthesia of skin NE nerve conduction velocity Today M79.604 - Pain in right leg, M79.605 - Pain in left leg, R20.2 - Paresthesia of skin Referrals Cardiology Referral R55 - Syncope and collapse, Z82.49 - Family history of ischemic heart disease and other diseases of the circulatory system Medications: New trazodone 50 mg PO BEDTIME 30 days PRN 30 tabs 1RF sleep Discontinued alprazolam Discontinued Reason: Doctor's Order 0.25 mg orally 1 tab 30 minutes prior to MRI, may repeat x's 1; 1 day 2 tabs 0RF rasagiline Discontinued Reason: Doctor's Order 1 mg PO DAILY 30 days 30 tabs 3RF propranolol ER Discontinued Reason: Doctor's Order 60 mg PO BEDTIME 30 days 30 caps 1RF Coding Level of Care Code Est Pt Level 4 (92619) Diagnoses Syncope R55 Family history of cardiac arrest Z82.49 Vertigo R42 Paresthesia R20.2 Parkinson's disease without dyskinesia G20.A1
[2023-11-26 08:09] VITALS: BP 118/74; PULSE 96; O2SAT 99; BMI 33.5
== END 2023-11-26 09:18 | disposition home or self-care (01) ==
PROVIDERS: PCP Internal Medicine; Visit Provider Nurse Practitioner Family
DX: R55 Syncope and collapse (principal); Z82.49 Family history of ischemic heart disease and other diseases of the circulatory system; R42 Dizziness and giddiness; R20.2 Paresthesia of skin; G20.A1 Parkinson's disease without dyskinesia, without mention of fluctuations
CPT/HCPCS: 99214

== ENCOUNTER 2023-11-26 07:58 | Outpatient (REF) | payer BC, SELFPAY ==
[2023-11-26 12:37] LABS: Folate 7.6 ng/mL (> or = 4.0); Vitamin B12 551 pg/mL (200-900)
== END 2023-11-26 07:59 | disposition home or self-care (01) ==
LOC: HO.LAB 07:58
PROVIDERS: PCP Internal Medicine; Visit Provider Nurse Practitioner Family
DX: R79.89 Other specified abnormal findings of blood chemistry (principal); E87.5 Hyperkalemia; R20.2 Paresthesia of skin; R55 Syncope and collapse; R42 Dizziness and giddiness; G20.A1 Parkinson's disease without dyskinesia, without mention of fluctuations; Z82.49 Family history of ischemic heart disease and other diseases of the circulatory system
CPT/HCPCS: 36415; 82607; 82746

== ENCOUNTER 2023-11-26 09:26 | Outpatient (REF) | payer BC, SELFPAY ==
[2023-11-26 17:21] LABS: MANUAL DIFF FLAG NO
[2023-11-26 17:26] LABS: Basophils Percent Auto 0.6 % (0-2); Eosinophils Absolute Auto 0.1 X10*3/uL (0.0-0.4); Eosinophils Percent Auto 2.1 % (0-4); Hematocrit 47.4 % (42.0-52.0); Hemoglobin 15.7 g/dl (14.0-18.0); Imm Gran Abs Auto 0.01 X10*3/uL (0.00-0.03); Imm Gran Pct Auto 0.2 % (0.0-0.4); Lymphocytes Absolute Auto 1.8 X10*3/uL (1.2-4.9); Lymphocytes Percent Auto 28.9 % (20-40); Mean Corpuscular HGB Conc 33.1 g/dl (31.0-36.0); Mean Corpuscular Hemoglobin 29.7 pg (27.0-33.0); Mean Corpuscular Volume 89.6 fL (80.0-98.0); Mean Platelet Volume 10.1 fL (9.4-12.4); Monocytes Absolute Auto 0.5 X10*3/uL (0.1-1.2); Monocytes Percent Auto 8.5 % (2-11); Neutrophils Absolute Auto 3.8 x10*3/uL (2.0-8.3); Neutrophils Percent Auto 59.7 % (45-73); Platelet Count 280 X10*3/uL (160-400); Red Blood Count 5.29 X10*6/uL (4.60-5.80); Red Cell Distribution Width 13.1 % (11.0-16.0); White Blood Count 6.3 X10*3/uL (4.8-10.8)
[2023-11-26 17:57] LABS: Alanine Aminotransferase 23 U/L (0-40); Albumin Level 4.6 g/dL (3.5-5.0); Alkaline Phosphatase 54 U/L (39-117); Anion Gap 11 (12-20); Aspartate Amino Transferase 19 U/L (5-37); Bilirubin Total 0.4 mg/dL (0.0-1.0); Blood Urea Nitrogen 9 mg/dL (9-16); Calcium 10.2 mg/dL (8.4-10.2); Carbon Dioxide 29 mmol/L (22-29); Chloride 104 mmol/L (96-108); Estimated Glomerular Filt Rate > 60; Glucose Random 94 mg/dL (60-115); Potassium 4.8 mmol/L (3.3-5.1); Sodium 139 mmol/L (135-145); Total Protein 7.9 g/dL (6.5-8.0)
== END 2023-11-26 09:27 | disposition home or self-care (01) ==
LOC: HO.HKASLDS 09:26
PROVIDERS: Visit Provider Nurse Practitioner Family
DX: R79.89 Other specified abnormal findings of blood chemistry (principal); E87.5 Hyperkalemia; R20.2 Paresthesia of skin; R25.1 Tremor, unspecified
CPT/HCPCS: 36415; 80053; 82550; 85025

== ENCOUNTER 2023-12-04 08:10 | Outpatient (REF) | payer BC, SELFPAY ==
[2023-12-08 15:44] LABS: Vitamin B6 5.6 ng/mL (2.1-21.7)
[2023-12-08 16:14] LABS: Nicotinamide <20 ng/mL; Vit B3 - Nicotinic Acid <20 ng/mL
[2023-12-08 17:02] LABS: Vitamin B2 (Riboflavin) <5.0 nmol/L (6.2-39.0)
[2023-12-08 18:49] LABS: Vitamin B5 (Pantothenic Acid) <40 ng/mL (<275)
[2023-12-09 12:17] LABS: Vitamin B1 <6 nmol/L (8-30)
== END 2023-12-04 08:11 | disposition home or self-care (01) ==
LOC: HO.LAB 08:10
PROVIDERS: PCP Internal Medicine; Visit Provider Nurse Practitioner Family
DX: R79.89 Other specified abnormal findings of blood chemistry (principal); E87.5 Hyperkalemia; R25.1 Tremor, unspecified; R20.2 Paresthesia of skin
CPT/HCPCS: 36415; 84207; 84252; 84425; 84591

== ENCOUNTER 2023-12-22 08:10 | Outpatient (REF) | payer BC, SELFPAY ==
--- NOTE | 2023-12-22 08:13 | EMG_ITS ---
Bilateral tibial and peroneal motor studies were performed. Bilateral superficial peroneal, sural, and median and lateral plantar and tibial H reflexes were obtained. Paraspinal muscles were tested with a needle. 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 MD DIONNE Pagan/STARLAL / [phone]
== END 2023-12-22 08:11 | disposition home or self-care (01) ==
LOC: HO.NEURO 08:10
PROVIDERS: Visit Provider Nurse Practitioner Family
DX: R20.2 Paresthesia of skin (principal); M79.604 Pain in right leg; M79.605 Pain in left leg
CPT/HCPCS: 95886; 95913

== ENCOUNTER 2024-02-23 09:58 | Outpatient (AMB) | payer BC, SELFPAY ==
[2024-02-23 10:08] VITALS: BP 112/60; PULSE 72; BMI 32.6
--- NOTE | 2024-02-23 10:08 | A.OFFVIS_ITS ---
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 Brother apparently was 57 years old and suddenly few months back. Hence patient is concern if there is any undiagnosed cardiac issue and himself. Patient himself does not have any clear-cut complaints like angina. However, he has had a couple of syncopal episodes. checked the blood pressure on a recent episode and it was quite low and hence there is a question of orthostatic hypotension. Baseline blood pressure is on the lower side to start with. There is a previous episode of syncope as well about an year ago. Additionally, he has neurological issues including Parkinson's disease. He is also on carbidopa/levodopa but it seems that the passing out episodes happen prior to the initiation of these drugs. He is currently walking with a cane. Prior to this, he was fully functional. [facility] Medical History Duodenal ulcer Hiatal hernia with gastroesophageal reflux Surgical History No pertinent past surgical history Family History Father Past heart attack Parkinsons disease Mother Hypertension Sister No problems noted. Brother No problems noted. Brother No problems noted. Brother No problems noted. Brother No problems noted. 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 Cognitive needs: No Hearing needs: No Vision needs: No Review of Systems Const Denies weakness ENT Denies dizziness Card Denies chest pain, Denies chest pain with activity, Denies syncope, Denies rapid heart rate, Denies pedal edema, Denies edema, Denies leg edema, Denies lightheadedness, Denies palpitations, Denies dyspnea, Denies dyspnea on exertion and Denies orthopnea Resp Denies cough, Denies dyspnea and Denies dyspnea on exertion GI Denies hematochezia and Denies change in stool character Musc Denies abnormal gait, Denies muscle cramps, Denies muscle weakness, Denies numbness, Denies radiating pain into limb and Denies tingling Neuro Denies abnormal gait, Denies dizziness, Denies syncope, Denies numbness, Denies tingling and Denies weakness Endo Denies palpitations Physical Exam Vital Signs: Last Vital Signs Pulse 72 02/23/24 10:08 BP 112/60 02/23/24 10:08 BMI result Body Mass Index 32.6 Const General: comfortable and no acute distress Orientation/consciousness: patient oriented x3 HEENT Other: Unremarkable Head: Yes normal to inspection Neck Neck: Yes normal visual inspection Chest Chest palpation & inspection: normal inspection of the chest Resp Auscultation: clear to auscultation bilaterally Cardio Palpation: normal PMI Heart sounds: S1 normal heart sound present, S2 normal heart sound present, no gallops, no murmurs and no rubs GI Palpation (GI): Soft to palpation Back/Spine/Pelvis Other: unremarkable Skin General skin exam: no rashes or lesions noted Neuro General: patient oriented x3 Extrem General: Yes normal to inspection Psych Mental Status: mental status grossly normal Office Procedures EKG Details: EKG with sinus rhythm at 72/Min; cannot exclude old inferior infarct but could be related to body habitus[place] [id number], Complete Assessment & Plan Assessment & Plan (1) Syncope: Code(s): R55 - Syncope and collapse Category: Medical Qualifiers: Syncope type: unspecified Qualified Code(s): R55 - Syncope and collapse Plan: Likely all from orthostatic hypotension. Advised to liberalize salt intake. Try compression stockings. If necessary, we can consider midodrine but hold off for now. Precautions while getting up from seated position. (2) Family history of cardiac arrest: Code(s): Z82.49 - Family history of ischemic heart disease and other diseases of the circulatory system Category: Medical Plan: As discussed above, sudden in brother of unknown cause. Obtain an echocardiogram for any findings like hypertrophic cardiomyopathy. We will also get coronary CTA. He has Parkinson's on medications, runs low blood pressures, walks with a cane and hence will not be suitable for exercise stress testing. Plan Discussed with significant other. Orders: Orders CA echo transthoracic complete Today R55 - Syncope and collapse CT Cardiac Coronary Angio Today I25.10 - Atherosclerotic heart disease of [place] coronary artery without angina pectoris, Z82.49 - Family history of ischemic heart disease and other diseases of the circulatory system Basic Metabolic Panel Today R55 - Syncope and collapse Coding Level of Care Code New Pt Level 4 (22359) Diagnoses Syncope, unspecified syncope type R55 Syncope type: unspecified Family history of cardiac arrest Z82.49 CPT Codes EKG - CPT: 25846-[id number], Complete ([id number])
== END 2024-02-23 10:51 | disposition home or self-care (01) ==
PROVIDERS: PCP Internal Medicine; Visit Provider Internal Medicine
DX: R55 Syncope and collapse (principal); Z82.49 Family history of ischemic heart disease and other diseases of the circulatory system
CPT/HCPCS: 93010; 99204

== ENCOUNTER → 2024-02-23 09:58 | Outpatient (BNVA) | payer BC, SELFPAY | PROVIDERS: PCP Internal Medicine; Visit Provider Internal Medicine | DX: R55 Syncope and collapse (principal); G20.A1 Parkinson's disease without dyskinesia, without mention of fluctuations; Z82.49 Family history of ischemic heart disease and other diseases of the circulatory system | CPT/HCPCS: 93005 ==

== ENCOUNTER 2024-02-24 15:05 | Outpatient (AMB) | payer BC, SELFPAY ==
--- NOTE | 2024-02-24 15:44 | A.OFFVIS_ITS ---
Vital Signs 02/24/24 15:50 Height 5 ft 11 in Weight 236 lb BMI 32.9 BP 115/74 Blood Pressure Location Lt brachial Position Sitting Pulse 68 Pulse Source Pulse Oximeter Pulse Oximetry (%) 98 Oxygen Delivery Method Room Air Intake Visit Reasons: Follow up(ok arsenio Silva)-LVM Intake Note: Patient presents for f/u. Med f/u and want to talk about the severity of existing symptoms. Allergies No Known Allergies Allergy (Verified 02/24/24 15:50) HPI Comments Details: 53-yr-old male presents for f/u visit. Accompanied by his . Since, last visit. Pt was started on low dose CD-LD. He did see cardiology- cardiac work-up advised, felt syncope was likely OH. 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 Pt was started on gabapentin, which is helping w/ sleep. Pt's current PD medication regimen: CD-LD 25-100mg - 1/2 tab at 7:30, 11:30, 3:30pm. Do medication effects last between doses: He is noticing that by midday, it is harder to get through the rest of the day. He has occasional headache. He can still be photophobic or phonophobic. Has not needed to take Ubrlevy recently. The Emgality has been helpful for the migraines. ADL's: Ind Swallowing: None Drooling: Stable- chronic Orthostatic lightheadedness: He still has orthostatic lightheadedness. Constipation: None Urinary symptoms: None Tremor: Occasional- barely Dyskinesia: None Stiffness: Can have increased rigidity that comes on mid-day Gait changes: Walking w/ cane Freezing: Increased rigidity is a/w freezing Falls: None Mood: it sucks - zones out some by 11-2pm- though a few weeks they got a kitten. Hallucinations: none Memory: Feels his memory is worse. Memory used to be snap shot , but now not so much. Can pause when talking. Harder to stay focused on things not relevant to him, and to switch on/off. 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 CRP- 3.5 H 06/18/23, In-Lab PSG: Sleep efficiency 55%, PLMS 6/hr w/ PLMS arousal index 0.9/hr, AHI 0/hr, REM AHI 0/hr, O2 katlyn 91% w/ average SpO2 94%. 05/21/13, Brain MRI w/wo: No findings of an acute intracranial process or abnormal enhancement. 06/24/23, Brain MRI/MRA w/o: Questionable vessel tortuosity versus 2 mm saccular aneurysm distal A2 segment of the right INDIRA. 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 Remainder of the intracranial vessels demonstrate no hemodynamically significant stenosis, focal aneurysm, or discrete vascular cutoff 07/14/23, DaTscan: slight decreased activity in the posterior putamen bi laterally. [facility] Medical History Duodenal ulcer Hiatal hernia with gastroesophageal reflux Surgical History No pertinent past surgical history Family History Father Past heart attack Parkinsons disease Mother Hypertension Sister No problems noted. Brother No problems noted. Brother No problems noted. Brother No problems noted. Brother No problems noted. 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 LUE- mild tone BUE FFM- intact Foot taps- Decreased fluidity on left Stand easily, steadier upon standing, less stoop, left shoulder drooped, stride ok, steady gait w/ cane. MS 5/ Assessment & Plan Assessment & Plan (1) Parkinson's disease without dyskinesia: Comment: Likely early PD in setting of family h/o PD. DaTscan, 07/14/23, slight decreased activity in the posterior putamen bilaterally. Code(s): G20.A1 - Parkinson's disease without dyskinesia, without mention of fluctuations Category: Medical (2) Migraine without aura: Comment: s/p fall on 03/14/23 Code(s): G43.009 - Migraine without aura, not intractable, without status migrainosus Category: Medical (3) Bilateral lower extremity pain: Code(s): M79.604 - Pain in right leg; M79.605 - Pain in left leg Category: Medical Plan For syncope/dizziness: Slowly decrease water intake to goal of 64 oz per day, including electrolyte replacement drinks. He has stopped the Propranolol ER. Stop the Rasagiline- as this can cause OH. Cardiology work-up as scheduled. ? For BLE pain and paresthesias: Continue exercise. Continue Vitamin B-12. Continue Gabapentin 100-300mg qhs. ? For PD: Increase CD-LD 25-100mg from 1/2 tab TID to 1 tab tid (or alternately 1/2 tab up to 6 x's per day)- in hopes this helps freezing and rigidity and bradyphrenia. Monitor for increased OH s/s Continue exercise. Trazodone for sleep Future considerations- psychotherapy. Resuming antidepressant. Previous PD trials- Rasagiline- ineffective. ? For acute headache treatment: Tylenol prn. Ubrelvy prn. Cyclobenzaprine prn Previous acute migraine medication trials: Tylenol- ineffective. Sumatriptan- ineffective. Rizatripatn- not fully effective. Elyxyb- samples- ineffective. Acute migraine medication contraindications: None at this time ? For headache prevention medication: Magnesium 400mg qhs Continue Emgality 120mg sc q month as pt is having good clinical effect. Previous migraine prevention medication trials: Propranolol Er 60mg qhs d/t orthostatic dizziness. Amitriptyline 50mg qhs- ineffective Migraine prevention medication contraindications: None at this time ? For sleep: Continue Trazodone 50mg qhs. ?Follow-up in clinic in 6 months or sooner prn Scribe Plan - Not visible on output: Discussed importance of regular physical activity for management of PD s/s, such as walking, cycling, boxing. Discussed benefits of dopaminergic therapies, such as reduced tremor and improved motor symptoms. Discussed potential adverse effects of dopaminergic therapies, including but not limited to nause/GI upset, orthostatic lightheadedness, dyskineisas, sleepiness, hallucinations. Pt is advised to establish care with a executive associate due to slight increase risk of melanoma seen in patient's with Parkinson's disease. Coding Level of Care Code Est Pt Level 4 (28598) Complex EM visit Add On G2211 Diagnoses Parkinson's disease without dyskinesia G20.A1 Migraine without aura G43.009 Bilateral lower extremity pain M79.604; M79.605
[2024-02-24 15:50] VITALS: BP 115/74; PULSE 68; O2SAT 98; BMI 32.9
== END 2024-02-24 16:51 | disposition home or self-care (01) ==
PROVIDERS: PCP Internal Medicine; Visit Provider Nurse Practitioner Family
DX: G20.A1 Parkinson's disease without dyskinesia, without mention of fluctuations (principal); G43.009 Migraine without aura, not intractable, without status migrainosus; M79.604 Pain in right leg; M79.605 Pain in left leg
CPT/HCPCS: 99214

== ENCOUNTER → 2024-02-24 15:05 | Outpatient (BNVA) | payer BC, SELFPAY | PROVIDERS: PCP Internal Medicine; Visit Provider Nurse Practitioner Family ==

== ENCOUNTER → 2024-03-10 08:47 | Outpatient (REF) | payer BC, SELFPAY ==
--- NOTE | 2024-03-10 08:51 | CA_ITS ---
Transthoracic Echocardiogram Patient (Last, First, Middle): Nacho Chacko M Gender: Male Date of : 1970 Age: 53 Procedure Date: 03/10/2024 Procedure Type: Transthoracic Echocardiogram Location: OP Height: 180.34 cm Weight: 102.06 kg BSA: 2.22 m2 Heart Rate: bpm BP: 100 / 70 mmHg Subassembly Assembler: TO Referring MD: Mick Lackey MD Acid Condenser: Ramiro Pollard MD Symptoms: R55 - Syncope and collapse Study Quality: Fair ECG Rhythm: Sinus Conclusions: - 1. Low normal LV ejection fraction 50-55% with impaired relaxation filling pattern 2. Normal cardiac valvular Doppler 3. Mildly dilated ascending aorta at 3.9 cm 4. No gross pericardial effusion Findings Left Ventricle Normal left ventricular cavity size. There is normal left ventricular wall thickness. The left ventricular systolic function is low normal. The visually estimated ejection fraction is between 50-55%. Spectral Doppler is indicative of an impaired relaxation filling pattern. E/E prime ratio is between 8 and 15 consistent with indeterminate filling pressures. Right Ventricle Normal right ventricular cavity size and systolic function. Atria Both atria are normal in size. Interatrial shunt cannot be excluded. Aortic Valve The aortic valve structure and function is likely normal. There is no aortic valve stenosis. There is no aortic valve regurgitation. Mitral Valve Likely normal mitral valve structure and function. There is trace mitral valve regurgitation. There is no mitral valve stenosis. Pulmonic Valve The pulmonic valve was not well visualized. Tricuspid Valve The tricuspid valve was not well visualized. Tricuspid regurgitation envelope is inadequate for calculation of right ventricular systolic pressure. Normal right atrial pressure. Great Vessels The pulmonary artery was not well visualized. There is mild dilatation of the ascending aorta measuring 3.90 cm. Venous The inferior vena cava is normal in size and collapses greater than 50% with inspiration. Pericardium/Pleural There is no evidence of pericardial effusion. Prior Study Comparison no previous study in the last 5 years for comparison Measurements 2D Linear Measurements IVSd: 0.92 0.6-0.9/0.6-1.0 cm LVIDd: 4.54 3.9-5.3/4.2-5.9 cm LVIDd Index: 2.05 2.4-3.2/2.2-3.1 cm/m2 LVIDs: 3.08 2.0-3.6 cm LVPWd: 0.83 0.7-1.1 cm LA Diam: 2.70 2.7-3.8/3.0-4.0 cm LAIDs Index: 1.22 1.5-2.3 cm/m2 LV Mass: 161.74 67-162/88-224 g LV Mass Index: 72.86 43-95/49-115 g/m2 LVOT Diam: 2.20 3.0+(-)1.3 cm 2D Systolic Function EF 4C: 54.20 >55% EF 2C: 57.80 >55% EF BiP: 54.90 >55% Mitral Valve MV Pk E: 0.75 MV PK A: 0.64 MV Decel Time: 203.00 E/A: 1.20 E'Lateral: 8.70 E'Medial: 8.27 E/E' Med: 9.00 E/E' Lat: 8.60 PHT: 59.00 MVA PHT: 3.73 Decel Magoffin: 3.67 Aortic Valve AoV Pk Miah: 1.32 AoV Mn Miah: 0.85 AoV VTI: 0.26 AoV Pk Grad: 7.00 Aov Mn Grad: 3.00 MICHEL Cont.VTI: 3.04 LVOT LVOT Pk Miah: 1.05 LVOT Mn Miah: 0.62 LVOT VTI: 0.21 LVOT Pk Grad: 4.00 LVOT Mn Grad: 2.00 LVOT Diam: 2.20 LVOT Area: 3.80 Diastolic Function MV Pk E: 0.75 MV Pk A: 0.64 E/A: 1.20 E'Medial: 8.27 E/E' Med: 9.00 E' Laterial: 8.70 E/E' Lat: 8.60 Right Ventricle TAPSE (mm): 25.40 TVS' Miah: 10.90 Tricuspid Valve RA Press: 3.00 Great Vessels Aorta Sinus of Valsalva: 3.82 2.0-3.[address] Ridge: 3.22 1.7-3.4 cm Ao Asc: 3.90 2.1-3.4 cm Ao Arch: 3.30 Updated in Other Vendor System with Status of Final Ramiro Pollard MD electronically signed on 03/11/2024 2:25:18 PM with status of Final
== END ==
LOC: HO.CARD 08:47
PROVIDERS: PCP Internal Medicine; Visit Provider Internal Medicine
DX: R55 Syncope and collapse (principal)
CPT/HCPCS: 93306

== ENCOUNTER → 2024-03-10 08:51 | Outpatient (BNV) | payer BC, SELFPAY | PROVIDERS: PCP Internal Medicine; Visit Provider Internal Medicine Cardiovascular Disease | DX: R55 Syncope and collapse (principal); R93.1 Abnormal findings on diagnostic imaging of heart and coronary circulation | CPT/HCPCS: 93306 ==

== ENCOUNTER 2024-04-06 09:17 | Emergency (ER) | payer BC, SELFPAY ==
[2024-04-06] VITALS (7 sets, daily range): BP systolic 124–160; BP diastolic 78–104; PULSE 67–84; RESP 14–18; TEMP 37.1; O2SAT 97–99; BMI 33.5
--- NOTE | ~2024-04-06 | CT_ITS ---
CT ANGIOGRAM NECK WITH CONTRAST CT ANGIOGRAM BRAIN WITH CONTRAST CLINICAL INFORMATION: Dizziness. Headache. History of aneurysm. COMPARISON: Head CT April 16, 2024. TECHNIQUE: Test bolus sequences followed by intravenous administration 70 mL of Omnipaque 350. Helical imaging was performed in the axial plane from the thoracic inlet to the skull vertex. Delayed postcontrast imaging of the head was also performed. The data was processed at the medical office technologist workstation for generation of MIP sequences. Angled MIPs and volume rendered reformatted images were also generated at an offline 3D workstation under concurrent supervision. Stenoses are assessed in accordance with NASCET criteria unless otherwise indicated. This CT examination was performed using dose optimization techniques as appropriate, variously including the following: *Automated exposure control *Adjustment of mA and/or kV according to patient size (this includes techniques or standardized protocols for targeted exams where dose is matched to indication/reason for exam; i.e. extremities or head) *Use of iterative reconstruction technique FINDINGS: BRAIN: [There is no intracranial hemorrhage, hydrocephalus, extra-axial surface collection, midline shift, or other herniation pattern. Kaplan to white matter differentiation is diffusely maintained without evidence of an evolved acute territorial infarct. The basilar cisterns are preserved. No significant soft tissue abnormality. No acute osseous abnormality. There is mild mucosal thickening within the left sphenoid sinus. Mastoid air cells and middle ear cavities are clear. CERVICAL SOFT TISSUES AND LUNG APICES: [Multilevel cervical spondylosis. No significant soft tissue findings within the neck. Imaged upper lungs are clear. NECK CTA: [There is a classic 3 vessel configuration of the aortic arch. Proximal arch vessels are non-stenotic. The vertebral arteries are codominant. No significant ostial stenosis is visualized on either side. Both vertebral arteries are widely patent throughout their extracranial cervical course. Both common and internal carotid arteries are normal in course and caliber.] BRAIN CTA: [There is normal opacification of major intracranial arteries. No focal flow-limiting stenosis nor discrete proximal large artery occlusion. There is the suggestion of a small 2 mm aneurysm projecting anterolaterally from the right pericallosal anterior cerebral artery at the level of the genu of the corpus callosum best seen on image 91 of series 8. Timing of the contrast bolus allows assessment of the major dural venous sinuses, which all opacify normally] CT/CT angio head neck stroke IMPRESSION: * No acute intracranial findings. * No acute arterial occlusions and no significant arterial stenoses within the head or neck. * There is the suggestion of a small 2 mm aneurysm projecting anterolaterally from the right pericallosal anterior cerebral artery at the level of the genu of the corpus callosum best seen on image 91 of series 8.
--- NOTE | ~2024-04-06 | CT_ITS ---
EXAMINATION: CT HEAD WITHOUT CONTRAST (STROKE PROTOCOL) CLINICAL INFORMATION: Stroke protocol. Patient fell COMPARISON: 04/28/2023 TECHNIQUE: Contiguous axial imaging was performed from the skull base to vertex without intravenous administration of contrast. This CT examination was performed using dose optimization techniques as appropriate, variously including the following: *Automated exposure control *Adjustment of mA and/or kV according to patient size (this includes techniques or standardized protocols for targeted exams where dose is matched to indication/reason for exam; i.e. extremities or head) *Use of iterative reconstruction technique DLP: 774 mGy-cm FINDINGS: No evidence of intra or extra-axial fluid collection, hemorrhage, mass, or mass effect. Calvarium intact. There is mild mucoperiosteal thickening in the sphenoid sinus. No change. CT/CT head for stroke IMPRESSION: No acute intracranial pathology. Results will be telephoned into the emergency room by the PSA.
--- NOTE | 2024-04-06 09:24 | ECG_ITS ---
Test Reason : stroke protocol/ dizziness Blood Pressure : / mmHG Vent. Rate : 074 BPM Atrial Rate : 074 BPM P-R Int : 152 ms QRS Dur : 080 ms QT Int : 350 ms P-R-T Axes : 006 -12 011 degrees QTc Int : 388 ms Normal sinus rhythm with sinus arrhythmia Possible Inferior infarct (cited on or before 13-MAR-2023) Abnormal ECG When compared with ECG of 13-MAR-2023 19:23, No significant change was found Referred By: Eloise Buenrostro Electronically Signed By:MAXIMILIANO FLORES MD
--- NOTE | 2024-04-06 09:28 | PC.NURSE ---
Pt. in CT scan at this time
[2024-04-06 09:35] LABS: MANUAL DIFF FLAG NO
[2024-04-06 09:39] LABS: Basophils Percent Auto 0.6 % (0-2); Eosinophils Absolute Auto 0.1 X10*3/uL (0.0-0.4); Eosinophils Percent Auto 1.2 % (0-4); Hematocrit 47.5 % (42.0-52.0); Hemoglobin 16.3 g/dl (14.0-18.0); Imm Gran Abs Auto 0.02 X10*3/uL (0.00-0.03); Imm Gran Pct Auto 0.4 % (0.0-0.4); Lymphocytes Absolute Auto 1.4 X10*3/uL (1.2-4.9); Mean Corpuscular HGB Conc 34.3 g/dl (31.0-36.0); Mean Corpuscular Hemoglobin 29.9 pg (27.0-33.0); Mean Corpuscular Volume 87.2 fL (80.0-98.0); Mean Platelet Volume 9.3 fL (9.4-12.4); Monocytes Absolute Auto 0.5 X10*3/uL (0.1-1.2); Monocytes Percent Auto 8.9 % (2-11); Neutrophils Absolute Auto 3.1 x10*3/uL (2.0-8.3); Neutrophils Percent Auto 61.9 % (45-73); Platelet Count 293 X10*3/uL (160-400); Red Blood Count 5.45 X10*6/uL (4.60-5.80); Red Cell Distribution Width 13.2 % (11.0-16.0)
[2024-04-06 09:44] LABS: Prothrombin Time 11.7 SEC (11.1-13.3)
--- NOTE | 2024-04-06 09:45 | PC.NURSE ---
Pt. is on cardiac cath rn at this time. ED bed 4
[2024-04-06] MEDS: iohexoL 350 MG/ML 100 ML INFUS..BTL IV (09:47)
--- NOTE | 2024-04-06 09:47 | ED.NEUROSD ---
HPI - Neuro Symptoms/Deficit General Chief Complaint: Dizziness Stated Complaint: STROKE ALERT, FALL, DIZZY, COLON, LAST WELL 4:45AM Source: patient, EMS and old records reviewed Mode of arrival: EMS Limitations: no limitations History of Present Illness ED Provider: ESTHER HPI Narrative: 53 yo male with PMH of vertigo, parkinsons on carbidopa levodopa, orthostatic hypotension, migraines, tremors, sleep disorder, cerebral aneurysm, GERD, arthritis, not on blood thinners who follows here with Becca Paiz woke up today around 445am and felt fine. He has been dealing with 3 weeks of these freezing episodes and episodes of dizziness and blurred vision worse with standing. Today had similar episode around 8am - standing his legs both felt weak, dizziness, blurry vision in both eyes and fell he thinks he hit his head. No LOC. No CP/SOB. He feels better with EMS now that he is sitting. No recent triggers or infectious symptoms to trigger his symptoms. Onset (ago): hour(s) (8am) Location: other (dizziness, blurry vision) History of same: Yes Severity: moderate Quality: weak, intermittent and improving Relieving factors: rest Exacerbating factors: other (standing) Context: sudden onset On Anticoagulants: No Associated symptoms: weakness Treatments Prior to Arrival: none Related Data Previous Rx's ?Medication ?Instructions ?Recorded galcanezumab-gnlm 120 mg/mL 120 mg subcut ONCE 30 days #30 mL 09/29/23 subcutaneous pen injector (Emgality Pen) cyanocobalamin (vitamin B-12) 500 500 mcg PO DAILY 30 days #30 tabs 10/30/23 mcg tablet carbidopa 25 mg-levodopa 100 mg 0.5 - 1 tab PO BID 30 days #60 tabs 12/07/23 tablet gabapentin 100 mg capsule 100 - 300 mg (1 - 3 x 100 mg) PO 01/01/24 BEDTIME 30 days #90 caps trazodone 50 mg tablet 50 mg PO BEDTIME PRN sleep 30 days 03/25/24 #30 tabs Allergies Allergy/AdvReac Type Severity Reaction Status Date / Time No Known Allergies Allergy Verified 04/06/24 10:06 Review of Systems Review of Systems: Constitutional : No Fever, No Chills, No Fatigue ENT/Mouth : No sore throat, No Rhinorrhea Eyes: No Eye Pain, No Swelling, No Redness Cardiovascular : No Chest Pain, No SOB, No Dyspnea on Exertion Respiratory : No Cough, No Sputum Gastrointestinal : No Nausea, No Vomiting, No Diarrhea, No abdominal Pain Genitourinary : No Dysuria, No Urinary Frequency, No Hematuria, Musculoskeletal : No joint pain, No Myalgias, No Joint Swelling Skin : No Skin Lesions, No rash Neuro : pos Weakness, No Numbness, pos Dizziness, positive Headache Psych : No Anxiety/Panic, No Depression All other systems reviewed and are negative [facility] Past Medical History Attestation statement: The following information was validated with the patient. Source: old records reviewed Medical History (Updated 04/06/24 @ 11:50 by Eloise Buenrostro DO) GERD (gastroesophageal reflux disease) Cerebral aneurysm Parkinson's disease without dyskinesia Vertigo Bilateral lower extremity pain Hiatal hernia with gastroesophageal reflux Duodenal ulcer Surgical History No pertinent past surgical history Family History Family History Father Past heart attack Parkinsons disease Mother Hypertension Sister No problems noted. Brother No problems noted. Brother No problems noted. Brother No problems noted. Brother No problems noted. Family/Other GERD (gastroesophageal reflux disease) Arthritis Other Mental health disorder Substance use disorder Social History Social History Housing: House Alcohol intake: never Patient Tobacco Use Status: Current everyday Tobacco user Tobacco use type: Cigarette Cigarettes Per Day: 2 Years Smoked: 31 Smoked in Last 30 Days: Yes e-Cigarette/Vaping Use: Currently Using Second Hand Smoke Exposure: No Use of substances other than those prescribed or required for medical reasons: No Substance Use Type: Marijuana Advance Directives: No Advance Directives Information Provided: Yes Do you have a plan to hurt others: No Plan service: No Current occupational status: employed 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 Oriented X3. No acute distress. Eyes: Pupils equal, round and reactive to light. ENT: Pharynx normal. Neck: Normal inspection. Neck supple. CVS: Normal heart rate and rhythm. Pulses normal. Respiratory: No respiratory distress. Breath sounds normal. Abdomen: Soft and nontender. Skin: Skin warm and dry. Normal skin color. Normal skin turgor. Extremities: No lower extremity edema. No calf ttp Neuro: Oriented X 3. No motor deficit. No sensory deficit. CN2-12 intact Course Course Course Narrative: had a freezing episode - both eyes shaking both hands shaking alert and oriented talking through it and sitting down - not hypotensive during episode not consistent with a seizure 1055am Medications Administered Discontinued Medications Generic Name Dose Route Start Last Admin Trade Name Patrickq PRN Reason Stop Dose Admin Lactated Ringer's 1,000 mls @ 999 mls/hr 04/06/24 09:23 04/06/24 11:12 Lr IV 04/06/24 10:23 Infused .Q1H1M ONE Infusion Iohexol 100 ml 04/06/24 09:47 04/06/24 09:47 Iohexol 350 Mg/Ml 100 Ml Infus..Btl IV 04/06/24 09:48 70 ml ONCE ONE Administration Medical Decision Making Medical Decision Making [facility] Narrative: 53 yo male with PMH of vertigo, parkinsons on carbidopa levodopa, orthostatic hypotension, migraines, tremors, sleep disorder, cerebral aneurysm, GERD, arthritis, not on blood thinners here with waxing and waning symptoms over 3 weeks, freezes, legs feel weak bilaterally, blurry vision - worse with standing, fell today. He has no focal deficits on exam his NIH is 0 he is not a candidate for TNK. At this time labs, CT head for trauma, given headache - CTA for his aneurym ordered. I am going to obtain labs, hydrate, orthostatics ordered. Will contact Becca Paiz as well. Differential Diagnosis Differential Diagnoses: The differential diagnosis associated with the presentation includes parkinson's associated pathology, no acute deficits, head trauma, orthostatic hypotension Admission/Observation Consideration of admission/observation: Escalation of care including admission/observation considered work up negative at this time, discussed with JOEY Paiz increase to 1 tab 4 times a day Chencho will follow up with in office - monitor his lightheadedness. Consult Healthcare Provider Management of the patient was discussed with: Scientific Affairs Manager Lab Data MDM Lab Attestation statement: I reviewed the patient's lab results. 04/06/24 09:32 04/06/24 09:32 Labs: Lab Results 04/06/24 04/06/24 Range/Units 09:23 09:32 WBC 5.0 (4.8-10.8) X10*3/uL RBC 5.45 (4.60-5.80) X10*6/uL Hgb 16.3 (14.0-18.0) g/dl Hct 47.5 (42.0-52.0) % MCV 87.2 (80.0-98.0) fL MCH 29.9 (27.0-33.0) pg MCHC 34.3 (31.0-36.0) g/dl RDW 13.2 (11.0-16.0) % Plt Count 293 (160-400) X10*3/uL MPV 9.3 L (9.4-12.4) fL Immature Gran % (Auto) 0.4 (0.0-0.4) % Neut % (Auto) 61.9 (45-73) % Lymph % (Auto) 27.0 (20-40) % [place] % (Auto) 8.9 (2-11) % Eos % (Auto) 1.2 (0-4) % Baso % (Auto) 0.6 (0-2) % Lymph # (Auto) 1.4 (1.2-4.9) X10*3/uL [place] # (Auto) 0.5 (0.1-1.2) X10*3/uL Eos # (Auto) 0.1 (0.0-0.4) X10*3/uL Baso # (Auto) 0.0 (0.0-0.2) X10*3/uL Abs Immat Gran (auto) 0.02 (0.00-0.03) X10*3/uL Absolute Neuts (auto) 3.1 (2.0-8.3) x10*3/uL Absolute Nucleated RBC 0.000 (0.0-0.012) X10*3/uL Nucleated RBC % (auto) 0.0 (0.0-0.2) /100WBC Hold Purple Top SEE NOTE PT 11.7 (11.1-13.3) SEC INR 1.0 (0.9-1.1) Sodium 140 (135-145) mmol/L Potassium 5.1 (3.3-5.1) mmol/L Chloride 107 (96-108) mmol/L Carbon Dioxide 26 (22-29) mmol/L Anion Gap 12 (12-20) BUN 8 L (9-16) mg/dL Creatinine 0.96 (0.5-1.4) mg/dL Estim Creat Clear Calc 113.0 Estimated GFR > 60 Random Glucose 101 (60-115) mg/dL Calcium 10.1 (8.4-10.2) mg/dL Magnesium 2.1 (1.6-2.6) mg/dL Total Bilirubin 0.4 (0.0-1.0) mg/dL Direct Bilirubin 0.1 (0.0-0.5) mg/dL AST 23 (5-37) U/L ALT 27 (0-40) U/L Alkaline Phosphatase 54 (39-117) U/L Troponin I High Sens < 2.7 (<3.5-35.0) ng/L Total Protein 8.2 H (6.5-8.0) g/dL Albumin 4.8 (3.5-5.0) g/dL Lipase 17 (8-78) U/L Independent Interpretation I performed an independent interpretation of an: EKG and CT Scan Interpretation: Rate: 74 Rhythm: NSR Temple: left Normal P waves. Normal TASNEEM. Normal QRS complex. ST T wave : no RAMON, flat t waves III qTC: 388 prior studies: no acute ischemia The study has been interpreted contemporaneously by me. Radiology Impression Discussion of test interpretation with radiology: I discussed test interpretation with the radiologist and I have reviewed the radiologist's reading. Radiologist Impression: 955am - no acute intracranial hemorrhage Independent Historian Clinical information obtained from an independent historian. History obtained from or confirmed by: Spouse and EMS External Record Review External record reviewed: Office record Prescription Management I considered prescription management with: Other NIH Stroke Scale Internal: Initial- Upon Arrival Level of Consciousness: Alert Level of Consciousness Questions: Answers both questions correctly Level of Consciousness Commands: Performs both tasks correctly Best Gaze: Normal Visual: No visual loss Facial Palsy: Normal Motor Arm (Right): No drift Motor Arm (Left): No drift Motor Leg (Right): No drift Motor Leg (Left): No drift Limb Ataxia: Absent Sensory: Normal Best Language: No aphasia Dysarthia: Normal Extinction and Inattention: No abnormality Score: 0 Critical Care Time Critical Care Time Critical Care Time: Yes Total Critical Care Time: 40 Attestation: medical consult, review of records, stroke protocol I attest to this time spent taking care of the patient Discharge Plan Discharge Clinical Impression: Dizziness, Head injury, Parkinson disease Patient Disposition: Home, Self-Care Instructions: Dizziness (ED), Head Injury (ED), Parkinson Disease (ED) Additional Instructions: increase carbidopa levodopa to 4 times a day follow up with Chencho as discussed this week return for any worsening symptoms or concerns, confusion, vomiting CTA done of aneurysm - no bleeding, no trauma noted - no sig change from prior Prescriptions: No Action Emgality Pen 120 mg/mL pen injector 120 mg subcut ONCE 30 Days Qty: 30 6RF Rx Instructions: 120mg sc q month cyanocobalamin (vitamin B-12) 500 mcg tablet 500 mcg PO DAILY 30 Days Qty: 30 6RF carbidopa-levodopa 25-100 mg tablet 0.5 - 1 tab PO BID 30 Days Qty: 60 3RF Rx Instructions: take w/ a cracker 30 minutes before breakfast and dinner, gabapentin 100 mg capsule 100 - 300 mg PO BEDTIME 30 Days Qty: 90 3RF trazodone 50 mg tablet 50 mg PO BEDTIME PRN (Reason: sleep) 30 Days Qty: 30 6RF Stand Alone Forms: Work/School Release Print Language: Persian
[2024-04-06 10:05] LABS: Alanine Aminotransferase 27 U/L (0-40); Albumin Level 4.8 g/dL (3.5-5.0); Alkaline Phosphatase 54 U/L (39-117); Anion Gap 12 (12-20); Aspartate Amino Transferase 23 U/L (5-37); Bilirubin Direct 0.1 mg/dL (0.0-0.5); Bilirubin Total 0.4 mg/dL (0.0-1.0); Blood Urea Nitrogen 8 mg/dL (9-16); Calcium 10.1 mg/dL (8.4-10.2); Carbon Dioxide 26 mmol/L (22-29); Chloride 107 mmol/L (96-108); Estimated Glomerular Filt Rate > 60; Glucose Random 101 mg/dL (60-115); Lipase 17 U/L (8-78); Magnesium 2.1 mg/dL (1.6-2.6); Potassium 5.1 mmol/L (3.3-5.1); Sodium 140 mmol/L (135-145); Total Protein 8.2 g/dL (6.5-8.0)
[2024-04-06] MEDS: Lactated Ringers 1,000 ML 999 ML IV (10:05)
--- NOTE | 2024-04-06 10:10 | PC.NURSE ---
Orthostatics completed as ordered. Pt. is not orthostatic.
[2024-04-06 10:11] LABS: Troponin-I High Sensitivity < 2.7 ng/L (<3.5-35.0)
[2024-04-06 11:51] LABS: Prothrombin Time Whole Bld POC 11.7 sec (11.1-13.5)
--- NOTE | 2024-04-06 11:54 | MHC.EDTECH ---
This tech went to the room to introduce herself, did vital signs, emptied urinal, call mcmahon within reach, family member present.
== END 2024-04-06 12:17 | disposition home or self-care (01) ==
PROVIDERS: Emergency Provider Emergency Medicine; PCP Internal Medicine
DX: S09.90XA Unspecified injury of head, initial encounter (principal); R42 Dizziness and giddiness; R51.9 Headache, unspecified; G20.A1 Parkinson's disease without dyskinesia, without mention of fluctuations; R94.31 Abnormal electrocardiogram [ECG] [EKG]; I49.8 Other specified cardiac arrhythmias; H53.8 Other visual disturbances; F17.210 Nicotine dependence, cigarettes, uncomplicated; W01.0XXA Fall on same level from slipping, tripping and stumbling without subsequent striking against object, initial encounter; Y93.89 Activity, other specified; Y92.89 Other specified places as the place of occurrence of the external cause; Y99.8 Other external cause status; Z79.899 Other long term (current) drug therapy
CPT/HCPCS: 36415; 70450; 70496; 70498; 80048; 80076; 83690; 83735; 84484; 85025; 85610; 93005; 99284; J7120; Q9967

== ENCOUNTER → 2024-04-06 09:24 | Outpatient (BNV) | payer BC, SELFPAY | PROVIDERS: Emergency Provider Emergency Medicine; PCP Internal Medicine; Visit Provider Internal Medicine Cardiovascular Disease | DX: R94.31 Abnormal electrocardiogram [ECG] [EKG] (principal) | CPT/HCPCS: 93010 ==

== ENCOUNTER 2024-05-09 07:35 | Outpatient (REF) | payer BC, SELFPAY ==
[2024-05-09 09:22] LABS: Anion Gap 13 (12-20); Blood Urea Nitrogen 10 mg/dL (9-16); Calcium 9.4 mg/dL (8.4-10.2); Carbon Dioxide 26 mmol/L (22-29); Chloride 106 mmol/L (96-108); Estimated Glomerular Filt Rate > 60; Glucose Random 101 mg/dL (60-115); Potassium 4.3 mmol/L (3.3-5.1); Sodium 141 mmol/L (135-145)
== END 2024-05-09 07:36 | disposition home or self-care (01) ==
LOC: HO.LAB 07:35
PROVIDERS: Absent Provider Nurse Practitioner Family; PCP Internal Medicine; Visit Provider Internal Medicine
DX: R55 Syncope and collapse (principal)
CPT/HCPCS: 36415; 80048

== ENCOUNTER 2024-08-09 07:20 | Outpatient (AMB) | payer BC, SELFPAY ==
--- NOTE | 2024-08-09 07:40 | MHC.OFFVIS ---
Intake Visit Reasons: 3 month F/U Intake Note: Patient presents for 3 month follow up Allergies No Known Allergies Allergy (Verified 08/09/24 07:44) Medication List - Last Reconciled 08/09/24 by JOEY Yeager carbidopa-levodopa 25-100 mg 1 tab orally 5 times a day; take w/ a cracker 30 days carbidopa-levodopa 25-100 mg ER 2 tabs PO BEDTIME 30 days cyanocobalamin (vitamin B-12) 500 mcg PO DAILY 30 days gabapentin 100 - 300 mg (1 - 3 x 100 mg) PO BEDTIME 30 days galcanezumab-gnlm (Emgality Pen) 120 mg subcut ONCE 30 days pramipexole 0.125 - 0.25 mg (1 - 2 x 0.125 mg) PO TID 30 days trazodone 50 mg PO BEDTIME PRN 30 days HPI Comments Details: 54-yr-old male presents for f/u visit. Patient reports overall he is not doing well, in particular regards to his mood and his BLE pain and neuropathy, having some headaches. History of syncope and orthostatic lightheadedness: Pt reports he is less dizzy. He did see Cardiology in January, but that syncope was likely orthostatic hypotension. They advised him to liberalize his salt intake. Also advised to undergo echocardiogram and CT cardiac angio- as patient not thought to be a good candidate to do a stress test. BLE pain and neuropathy: He feels his BLE muscles are being attacked , feels a pulling sensation. His legs may shake. He may need to rely on his cane more. He also feels his BLE neuropathy s/s are worsening- feels sharp jabbing pains and creepy crawling sensation- both at rest and with activity. He is not sure if this pain is worse w/ movement or rest. 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 Gabapentin helps some. Headache: Pt has been feeling a hit or miss bilateral l temporal pressure- not so much a pain. Has not tried the Ubrelvy for this. No recent migraine attack. He can still be photophobic or phonophobic. Has not needed to take Ubrlevy recently. The Emgality has been helpful for the migraines. Parkinson's disease: He is scheduled for a movement eval at [facility] in Oct. Pt's current PD medication regimen: CD-LD IR 25-100mg - 1 tab QID. CD-LD ER 25-100mg- 2 tabs q.h.s.. Gabapentin 300mg q 7pm. ADL's: Ind Swallowing: None Drooling: tells him, but he does not notice Orthostatic lightheadedness: Orthostatic lightheadedness is better. Rarely notices when going up/down the stairs. Standing uo slower. Constipation: None Urinary symptoms: None Tremor: BLE symmetric tremor regardless of pain level. Dyskinesia: None Stiffness: Denies Gait changes: Walking w/ cane Freezing: Less since the last CD-LD increase Falls: Maybe once or twice- no has walkers on all 4 floors of the house. Mood: mood is worse- feels distant, vacant, angry, depressed, anxious, irritated. Sometimes, he feels his brother who recently- got off easy . Hallucinations: Denies SI. He chose to work on [employer]. He notes he has always been prone to anxiety/nervousness. Memory: Feels he has some cognitive issues. Better w/ routine things, such as grocery shopping for the usual things. But more prone to forget if he needs to get something new. May forget where he parked his car. More difficulty multi-tasking. Not doing as well in work meetings- not doing as well answering 2nd/follow-up questions- not as quick as he used to be. He denies phonophobia. Sleep: better but hit or miss Exercise: just walking- has not been back to the gym since a fall in Mar. 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 CRP- 3.5 H 06/18/23, In-Lab PSG: Sleep efficiency 55%, PLMS 6/hr w/ PLMS arousal index 0.9/hr, AHI 0/hr, REM AHI 0/hr, O2 katlyn 91% w/ average SpO2 94%. 05/21/13, Brain MRI w/wo: No findings of an acute intracranial process or abnormal enhancement. 06/24/23, Brain MRI/MRA w/o: Questionable vessel tortuosity versus 2 mm saccular aneurysm distal A2 segment of the right INDIRA. 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 Remainder of the intracranial vessels demonstrate no hemodynamically significant stenosis, focal aneurysm, or discrete vascular cutoff 07/14/23, DaTscan: slight decreased activity in the posterior putamen bilaterally. [facility] Medical History Parkinson's disease without dyskinesia GERD (gastroesophageal reflux disease) Cerebral aneurysm Vertigo Bilateral lower extremity pain Hiatal hernia with gastroesophageal reflux Duodenal ulcer Surgical History No pertinent past surgical history Family History Father Past heart attack Parkinsons disease Mother Hypertension Sister No problems noted. Brother No problems noted. Brother No problems noted. Brother No problems noted. Brother No problems noted. 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 Mood lifts when discussing his new kitten. Soft voice No visible tremor. LUE- mild tone BUE FFM- intact Foot taps- bradykinesia Stand easily, steadier upon standing, less stoop, left shoulder drooped, shorter steps, steady gait w/ cane. MS 5/5 Assessment & Plan Assessment & Plan (1) Parkinson's disease without dyskinesia: Comment: Likely early PD in setting of family h/o PD. DaTscan, 07/14/23, slight decreased activity in the posterior putamen bilaterally. 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 Concur with cardiology's recommendation for liberalize salt intake. Continue to stand slowly. Cardiology work-up as scheduled. For BLE peripheral neuropathy: Continue exercise. Continue Vitamin B-12. Increase Gabapentin from 300 mg q.h.s. to 200 mg q.a.m. and 300 mg q.h.s. Will check labs to round out neuropathy workup. ? For PD: Continue CD-LD IR 25-100mg - 1 tab QID. CD-LD ER 25-100mg- 2 tabs q.h.s Encourage patient to increase his physical activity again as his lightheadedness has improved, this would likely help both his mood and motor symptoms. [facility] movement Clinic consult in October scheduled. Previous PD trials- Rasagiline- ineffective. For mood and sleep: Patient's mood is markedly depressed. Though he states that his brother who passed ?got it easy?, he denies suicidal ideation or plan. Start bupropion XL 150 mg q.a.m..- in hope this helps mood, energy, cognition, focus. Continue trazodone 50 mg q.h.s. Will request psychiatry consult. Will refer patient to a psychologist/clinical licensed master social worker. Patient may also attempt to establish care with a therapist through [facility]- printed information given to patient. Local crisis number provided to patient. For acute headache treatment: Tylenol prn. Ubrelvy prn- trial Ubrelvy for bilateral temporal headache he has been having. Cyclobenzaprine prn Previous acute migraine medication trials: Tylenol- ineffective. Sumatriptan- ineffective. Rizatripatn- not fully effective. Elyxyb- samples- ineffective. Acute migraine medication contraindications: None at this time ? For headache prevention medication: Magnesium 400mg qhs Continue Emgality 120mg sc q month as pt is having good clinical effect. Previous migraine prevention medication trials: Propranolol Er 60mg qhs d/t orthostatic dizziness. Amitriptyline 50mg qhs- ineffective Migraine prevention medication contraindications: None at this time ? Patient advised to notify us us with any change in his mood or untoward effects from current treatment plan. Patient again advised to contact crisis if he develops SI or suicide intention. Will follow-up upon review of above and patient to follow-up in clinic in 3-4 months or sooner prn. Orders: Orders Vitamin B12 08/09/24 E51.9 - Thiamine deficiency, unspecified, F32.9 - Major depressive disorder, single episode, unspecified, G20.A1 - Parkinson's disease without dyskinesia, without mention of fluctuations, G62.9 - Polyneuropathy, unspecified, R20.2 - Paresthesia of skin, R79.89 - Other specified abnormal findings of blood chemistry Vitamin B6 08/09/24 E51.9 - Thiamine deficiency, unspecified, F32.9 - Major depressive disorder, single episode, unspecified, G20.A1 - Parkinson's disease without dyskinesia, without mention of fluctuations, G62.9 - Polyneuropathy, unspecified, R20.2 - Paresthesia of skin, R79.89 - Other specified abnormal findings of blood chemistry Vitamin B2 (Riboflavin) 08/09/24 E51.9 - Thiamine deficiency, unspecified, F32.9 - Major depressive disorder, single episode, unspecified, G20.A1 - Parkinson's disease without dyskinesia, without mention of fluctuations, G62.9 - Polyneuropathy, unspecified, R20.2 - Paresthesia of skin, R79.89 - Other specified abnormal findings of blood chemistry Protein Electrophoresis 24HrUr 08/09/24 E51.9 - Thiamine deficiency, unspecified, F32.9 - Major depressive disorder, single episode, unspecified, G20.A1 - Parkinson's disease without dyskinesia, without mention of fluctuations, G62.9 - Polyneuropathy, unspecified, R20.2 - Paresthesia of skin, R79.89 - Other specified abnormal findings of blood chemistry Methylmalonic Acid 08/09/24 E51.9 - Thiamine deficiency, unspecified, F32.9 - Major depressive disorder, single episode, unspecified, G20.A1 - Parkinson's disease without dyskinesia, without mention of fluctuations, G62.9 - Polyneuropathy, unspecified, R20.2 - Paresthesia of skin, R79.89 - Other specified abnormal findings of blood chemistry Magnesium 08/09/24 E51.9 - Thiamine deficiency, unspecified, F32.9 - Major depressive disorder, single episode, unspecified, G20.A1 - Parkinson's disease without dyskinesia, without mention of fluctuations, G62.9 - Polyneuropathy, unspecified, R20.2 - Paresthesia of skin, R79.89 - Other specified abnormal findings of blood chemistry Creatine Kinase Total 08/09/24 E51.9 - Thiamine deficiency, unspecified, F32.9 - Major depressive disorder, single episode, unspecified, G20.A1 - Parkinson's disease without dyskinesia, without mention of fluctuations, G62.9 - Polyneuropathy, unspecified, R20.2 - Paresthesia of skin, R79.89 - Other specified abnormal findings of blood chemistry Complete Blood Count Auto Diff 08/09/24 E51.9 - Thiamine deficiency, unspecified, F32.9 - Major depressive disorder, single episode, unspecified, G20.A1 - Parkinson's disease without dyskinesia, without mention of fluctuations, G62.9 - Polyneuropathy, unspecified, R20.2 - Paresthesia of skin, R79.89 - Other specified abnormal findings of blood chemistry Comprehensive Met. Panel 08/09/24 E51.9 - Thiamine deficiency, unspecified, F32.9 - Major depressive disorder, single episode, unspecified, G20.A1 - Parkinson's disease without dyskinesia, without mention of fluctuations, G62.9 - Polyneuropathy, unspecified, R20.2 - Paresthesia of skin, R79.89 - Other specified abnormal findings of blood chemistry TSH reflex Free T4 08/09/24 E51.9 - Thiamine deficiency, unspecified, F32.9 - Major depressive disorder, single episode, unspecified, G20.A1 - Parkinson's disease without dyskinesia, without mention of fluctuations, G62.9 - Polyneuropathy, unspecified, R20.2 - Paresthesia of skin, R79.89 - Other specified abnormal findings of blood chemistry Heavy Metals Screen 24H Urine 08/09/24 E51.9 - Thiamine deficiency, unspecified, F32.9 - Major depressive disorder, single episode, unspecified, G20.A1 - Parkinson's disease without dyskinesia, without mention of fluctuations, G62.9 - Polyneuropathy, unspecified, R20.2 - Paresthesia of skin, R79.89 - Other specified abnormal findings of blood chemistry Vitamin B1 08/09/24 E51.9 - Thiamine deficiency, unspecified, F32.9 - Major depressive disorder, single episode, unspecified, G20.A1 - Parkinson's disease without dyskinesia, without mention of fluctuations, G62.9 - Polyneuropathy, unspecified, R20.2 - Paresthesia of skin, R79.89 - Other specified abnormal findings of blood chemistry Protein Electrophoresis, Serum 08/09/24 E51.9 - Thiamine deficiency, unspecified, F32.9 - Major depressive disorder, single episode, unspecified, G20.A1 - Parkinson's disease without dyskinesia, without mention of fluctuations, G62.9 - Polyneuropathy, unspecified, R20.2 - Paresthesia of skin, R79.89 - Other specified abnormal findings of blood chemistry Homocysteine 08/09/24 E51.9 - Thiamine deficiency, unspecified, F32.9 - Major depressive disorder, single episode, unspecified, G20.A1 - Parkinson's disease without dyskinesia, without mention of fluctuations, G62.9 - Polyneuropathy, unspecified, R20.2 - Paresthesia of skin, R79.89 - Other specified abnormal findings of blood chemistry Vitamin B12 and Folate 08/09/24 E51.9 - Thiamine deficiency, unspecified, F32.9 - Major depressive disorder, single episode, unspecified, G20.A1 - Parkinson's disease without dyskinesia, without mention of fluctuations, G62.9 - Polyneuropathy, unspecified, R20.2 - Paresthesia of skin, R79.89 - Other specified abnormal findings of blood chemistry Hemoglobin A1c 08/09/24 E51.9 - Thiamine deficiency, unspecified, F32.9 - Major depressive disorder, single episode, unspecified, G20.A1 - Parkinson's disease without dyskinesia, without mention of fluctuations, G62.9 - Polyneuropathy, unspecified, R20.2 - Paresthesia of skin, R79.89 - Other specified abnormal findings of blood chemistry Referrals Psychiatry Referral F32.9 - Major depressive disorder, single episode, unspecified, F41.9 - Anxiety disorder, unspecified, G20.A1 - Parkinson's disease without dyskinesia, without mention of fluctuations Psychology Referral F32.9 - Major depressive disorder, single episode, unspecified, F41.9 - Anxiety disorder, unspecified, G20.A1 - Parkinson's disease without dyskinesia, without mention of fluctuations Medications: New bupropion HCl XL 150 mg PO QAM 30 tabs 3RF 30 days Changed From gabapentin 100 - 300 mg (1 - 3 x 100 mg) PO BEDTIME 30 days 90 caps 3RF To gabapentin 200mg qam and 300mg q evening orally bedtime; 150 caps 3RF 30 days Coding Level of Care Code Est Pt Level 5 (47139) Diagnoses Parkinson's disease without dyskinesia G20.A1 Major depression F32.9 Anxiety F41.9 Migraine without aura G43.009 Peripheral neuropathy G62.9 Time Spent (min) 75 Comment greater than 1 hour spent in direct face to face time with patient.
== END 2024-08-09 09:07 | disposition home or self-care (01) ==
PROVIDERS: PCP Internal Medicine; Visit Provider Nurse Practitioner Family
DX: G20.A1 Parkinson's disease without dyskinesia, without mention of fluctuations (principal); F32.9 Major depressive disorder, single episode, unspecified; F41.9 Anxiety disorder, unspecified; G43.009 Migraine without aura, not intractable, without status migrainosus; G62.9 Polyneuropathy, unspecified
CPT/HCPCS: 99215

== ENCOUNTER 2024-11-04 13:37 | Emergency (ER) | payer BC, SELFPAY ==
--- NOTE | ~2024-11-04 | CT_ITS ---
EXAMINATION: CT HEAD WITHOUT CONTRAST CLINICAL INFORMATION: Fall, head strike, pain COMPARISON: None available. TECHNIQUE: Contiguous axial imaging was performed from the skull base to vertex without intravenous administration of contrast. This CT examination was performed using dose optimization techniques as appropriate, variously including the following: *Automated exposure control *Adjustment of mA and/or kV according to patient size (this includes techniques or standardized protocols for targeted exams where dose is matched to indication/reason for exam; i.e. extremities or head) *Use of iterative reconstruction technique DLP 1402 mGy/cm. FINDINGS: There is no acute intra-axial, extra-axial bleed, masses or midline shift. There is no acute infarction evolution. There is no edema. The mcdonald to white matter differentiation is maintained normal. The lateral ventricles are symmetrical in size and configuration without enlargement. Kaplan to white matter differentiation is maintained normal. Bone windows reveal no calvarial abnormality. There is no scalp soft tissue abnormality. Bilateral paranasal sinuses and mastoid air cells are well-aerated. CT/CT head/brain wo IV con IMPRESSION: No acute intracranial process seen. Electronically signed by: Kyle Soares MD 11/04/2024 04:48 PM [facility]
--- NOTE | ~2024-11-04 | CT_ITS ---
CLINICAL HISTORY: right sided alevism pain, worsening, hx of aneursym CT angiography head and neck with contrast. With MIP MPR Postprocessing. Comparison: CTA from 04/06/2024 Findings: Head: No ICA or M1 occlusion. Right A1 segment is diminutive and unchanged. Anterior communicating artery is patent. Accessory (3rd) A2 branch proximal ACAs and proximal MCAs are otherwise unremarkable. The basilar artery is patent. 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 No proximal intracranial arterial aneurysm. Neck: No significant stenosis of either internal carotid artery by NASCET criteria. The vertebral arteries are codominant. three-vessel aortic arch anatomy. Motion artifacts about imaged lung apices. Mild reversal cervical lordosis of the degenerative changes including facet arthropathy. IMPRESSION: Head: 1. No ICA or M1 occlusion. 2. The basilar artery is patent. Neck: 1. No significant stenosis of either internal carotid artery by NASCET criteria. 2. The vertebral arteries are codominant This document has been electronically signed by: Yasir Meredith MD on 11/04/2024 19:40:32
--- NOTE | ~2024-11-04 | XR_ITS ---
EXAMINATION: XR CHEST 1 VIEW HISTORY: weakness COMPARISON: Comparison is made with the prior examination dated 03/09/2018. FINDINGS: A single AP portable view of the chest performed at 2:53 PM is submitted. The lungs are expanded and clear. There is no pleural effusion, pneumothorax, or pulmonary vascular congestion. The heart is normal in size. The bones are intact. XR/XR chest 1V IMPRESSION: No acute cardiopulmonary abnormality. Electronically signed by: Momo Tyson MD 11/04/2024 03:14 PM EST
--- NOTE | ~2024-11-04 | CT_ITS ---
EXAMINATION: CT CERVICAL SPINE WITHOUT CONTRAST CLINICAL INFORMATION: Head strike. Neck pain. COMPARISON: None available. TECHNIQUE: 3 mm thin axial and reformatted 2 mm thin sagittal and coronal images of cervical spine were obtained without contrast. This CT examination was performed using dose optimization techniques as appropriate, variously including the following: *Automated exposure control *Adjustment of mA and/or kV according to patient size (this includes techniques or standardized protocols for targeted exams where dose is matched to indication/reason for exam; i.e. extremities or head) *Use of iterative reconstruction technique DLP: 1402 mGy/cm. FINDINGS: There is normal cervical lordosis. The vertebral heights, alignment and disc heights are normal. No visible acute fracture, dislocation or subluxation seen. The prevertebral and paravertebral soft tissues are normal. The lung apices are clear. CT/CT cervical spine wo IV con IMPRESSION: No visible acute fracture or dislocation cervical spine. Fleischner guidelines were followed. Electronically signed by: Kyle Soares MD 11/04/2024 04:50 PM TRAVIS
[2024-11-04 13:56] VITALS: BP 145/77; BP 150/85; PULSE 72; PULSE 73; RESP 20; TEMP 36.9; O2SAT 98; O2SAT 99; BMI 32.6
--- NOTE | 2024-11-04 14:07 | ECG_ITS ---
Test Reason : dizziness Blood Pressure : */* mmHG Vent. Rate : 71 BPM Atrial Rate : 340 BPM P-R Int : * ms QRS Dur : 78 ms QT Int : 372 ms P-R-T Axes : -14 -13 10 degrees QTcB Int : 404 ms Poor data quality Normal sinus rhythm with Sinus Arrhythmia Possible Inferior-posterior infarct (cited on or before 13-Mar-2023) Abnormal ECG When compared with ECG of 06-Apr-2024 09:55, Repeat EKG Referred By: Generic ED Physician Electronically Signed By: MAXIMILIANO FLORES MD
--- NOTE | 2024-11-04 14:25 | ED_ITS ---
HPI - General Adult General Chief complaint: Dizziness Stated complaint: dizzy, weak LNW 24hrs per ems Time Seen by Provider: 11/04/24 14:25 Source: patient and EMS Mode of arrival: EMS Limitations: no limitations History of Present Illness ED Provider: Renate Jacob PA-C HPI narrative: Patient is a 53 year old assigned male at with a history of vertigo, parkinsons on carbidopa levodopa, orthostatic hypotension, migraines, tremors, sleep disorder, cerebral aneurysm, GERD, and arthritis presenting to the emergency department today with a right sided headache and dizziness. Patient states that over the last 3 days he has had a constant right sided headache with intermittent dizziness. Patient states that he also fell today but did not hit his head or have any loss of consciousness. Patient denies any lightheadedness, abdominal pain, nausea, vomiting, fever, chills, blurry vision, double vision, loss of vision, chest pain, difficulty breathing, shortness of breath, back pain, night sweats, pain with urination, increased urinary frequency, increased urinary urgency, blood in his urine or stool, syncope or a near syncopal episode, recent trauma or falls, bowel incontinence, bladder incontinence, or any other complaints at this time. Relieving factors: none Exacerbating factors: none Associated symptoms: headaches Treatments prior to arrival: none Related Data Previous Rx's ?Medication ?Instructions ?Recorded cyanocobalamin (vitamin B-12) 500 500 mcg PO DAILY 30 days #30 tabs 10/30/23 mcg tablet galcanezumab-gnlm 120 mg/mL 120 mg subcut ONCE 30 days #30 mL 05/13/24 subcutaneous pen injector (Emgality Pen) carbidopa ER 25 mg-levodopa 100 mg 2 tab PO BEDTIME 30 days #60 tabs 08/05/24 tablet,extended release bupropion HCl 150 mg 24 hr tablet, 150 mg PO QAM 30 days #30 tabs 08/09/24 extended release gabapentin 100 mg capsule See Rx Instructions PO BEDTIME 30 08/09/24 days #150 caps carbidopa 25 mg-levodopa 100 mg 1 tab PO .COMPLEX 30 days #150 tabs 08/11/24 tablet pramipexole 0.125 mg tablet 0.125 - 0.25 mg (1 - 2 x 0.125 mg) 09/05/24 PO TID 30 days #180 tabs ubrogepant 100 mg tablet (Ubrelvy) 50 - 100 mg (0.5 - 1 x 100 mg) PO 09/05/24 ONCE PRN migraine headache 30 days #16 tabs trazodone 50 mg tablet 50 mg PO BEDTIME PRN sleep 30 days 10/20/24 #30 tabs Allergies Allergy/AdvReac Type Severity Reaction Status Date / Time No Known Allergies Allergy Verified 11/04/24 13:58 Review of Systems 2 Constitutional: Constitutional: Reports no additional constitutional complaints, Denies chills, Denies fever(s), Reports headache(s) and Denies night sweats Eyes: Eyes: Reports no additional eye complaints, Denies blurry vision, Denies change in vision, Denies diplopia, Denies eye discharge, Denies loss of vision and Denies eye pain ENT: Reports dizziness and Reports headache(s) Cardiovascular: Cardiovascular: Reports no additional cardiovascular complaints, Denies chest pain, Denies lightheadedness, Denies Loss of Consciousness and Denies dyspnea Respiratory: Respiratory: Reports no additional respiratory complaints and Denies dyspnea Gastrointestinal: Gastrointestinal: Reports no additional gastrointestinal complaints, Denies abdominal pain, Denies melena, Denies hematochezia, Denies change in bowel habits and Denies change in stool character Genitourinary: Genitourinary: Reports no additional male genitourinary complaints, Denies hematuria, Denies oliguria, Denies difficulty urinating, Denies dysuria, Denies urinary frequency, Denies urinary hesitancy, Denies urinary incontinence and Denies urinary urgency Musculoskeletal: Musculoskeletal: Reports no additional musculoskeletal complaints, Denies numbness and Denies tingling Neurologic: Reports dizziness, Reports headache(s), Denies loss of vision, Denies numbness and Denies tingling Psychiatric: Psychiatric: Reports no additional psychiatric complaints Endocrine: Endocrine: Reports no additional endocrine complaints Hematologic/Lymphatic: Hematologic/Lymphatic: Reports no additional hematologic/lymphatic complaints Allergic/Immunologic: Allergic/Immunologic: Reports no additional allergic/immunologic complaints PMFSH Past Medical History Attestation statement: The following information was validated with the patient. Source: old records reviewed and nursing notes reviewed Medical History Parkinson's disease without dyskinesia GERD (gastroesophageal reflux disease) Cerebral aneurysm Vertigo Bilateral lower extremity pain Hiatal hernia with gastroesophageal reflux Duodenal ulcer Surgical History No pertinent past surgical history Family History Family History Father Past heart attack Parkinsons disease Mother Hypertension Sister No problems noted. Brother No problems noted. Brother No problems noted. Brother No problems noted. Brother No problems noted. 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 Cognitive needs: No Hearing needs: No Vision needs: No Physical Exam ED Vital Signs: Vital Signs - 24 hr 11/04/24 13:56 11/04/24 15:15 11/04/24 15:16 Temperature 98.5 F Pulse Rate 72 91 78 Respiratory Rate 20 Blood Pressure 145/77 H 144/79 H 147/89 H Pulse Oximetry 99 Oxygen Delivery Method Room Air 11/04/24 15:18 11/04/24 18:07 Temperature 98.1 F Pulse Rate 81 66 Respiratory Rate 14 Blood Pressure 136/95 H 120/83 Pulse Oximetry 94 Oxygen Delivery Method Room Air BMI result Body Mass Index 32.6 Const General: cooperative, no acute distress, alert and awake Nutritional Appearance: well nourished Orientation/consciousness: patient oriented x3 Limitations: no limitations HENMT Head: Yes normal to inspection and Yes atraumatic Ears: hearing grossly normal bilaterally and external ears normal General nose exam: Normal external nose present, no nasal discharge noted and no epistaxis Face and sinus: Yes normal facial exam, No abrasion and No laceration Mouth: Normal oral and palatal mucosa present, no drooling and no muffled voice Eyes General: appearance normal, both eyes and all related structures Periorbital: periorbital findings normal Eyelids: Yes eyelids normal Conjunctivae: conjunctivae normal Pupils: Equal, round and reactive pupils present EOM: EOMs intact bilaterally Neck Neck: Yes normal visual inspection, Yes full ROM and Yes no lymphadenopathy Chest Chest palpation & inspection: normal inspection of the chest Resp Effort & Inspection: normal respiratory effort and able to speak in complete sentences GI Inspection: Yes normal to inspection Neuro General: patient oriented x3, moves all extremities and CN's II-XI intact bilaterally Cranial nerves: Yes Equal, round and reactive pupils present Cognition (Neuro): normal cognition Extrem General: Yes normal to inspection, Yes full ROM and Yes capillary refill normal Psych Appearance: grossly normal Mental Status: mental status grossly normal Affect: normal affect Attitude: cooperative Thought process: Normal thought process present Thought content: Normal thought content present Insight: Good insight present (Psych) NIH Stroke Scale Internal: Initial- Upon Arrival Time: 14:05 Level of Consciousness: Alert Level of Consciousness Questions: Answers both questions correctly Level of Consciousness Commands: Performs both tasks correctly Best Gaze: Normal Visual: No visual loss Facial Palsy: Normal Motor Arm (Right): No drift Motor Arm (Left): No drift Motor Leg (Right): No drift Motor Leg (Left): No drift Limb Ataxia: Absent Sensory: Normal Best Language: No aphasia Dysarthia: Normal Extinction and Inattention: No abnormality Score: 0 Medications Administered Discontinued Medications Generic Name Dose Route Start Last Admin Trade Name Radha PRN Reason Stop Dose Admin Iohexol 100 ml 11/04/24 18:40 11/04/24 18:40 Iohexol 350 Mg/Ml 100 Ml Infus..Btl IV 11/04/24 18:41 70 ml ONCE ONE Administration Medical Decision Making Medical Decision Making [facility] Narrative: Patient is a 53 year old assigned male at with a history of vertigo, parkinsons on carbidopa levodopa, orthostatic hypotension, migraines, tremors, sleep disorder, cerebral aneurysm, GERD, and arthritis presenting to the emergency department today with a right sided headache and dizziness. Patient's physical exam was unremarkable including a negative NIH stroke scale. Patient's blood work showed a slightly elevated potassium of 5.2 but otherwise unremarkable. Patient's initial EKG had extensive artifact however, the repeat was unremarkable. Patient's chest x-ray, head CT, head CTA, and c-spine CT all showed no acute process. Patient's clinical presentation is most consistent with acute on chronic conditions. I explained my physical exam findings as well as all test results to the patient. I answered all questions asked by the patient. Patient declined any pain medication for his headache. I stressed the importance of the patient taking his medication as directed (either prescribed or as the over the counter packaging recommends). I stressed the importance of the patient following up with his primary care provider. I stressed the importance of the patient returning to the emergency department immediately if his symptoms were to worsen or if he were to develop any dizziness, shortness of breath, difficulty breathing, chest pain, blurry vision, loss of vision, nausea, vomiting, abdominal pain, fever, chills, back pain, or any other complaints. Patient verbalized agreement and understanding with this treatment plan and discharge. Differential Diagnosis Differential Diagnoses: The differential diagnosis associated with the presentation includes Dizziness Headache Admission/Observation Consideration of admission/observation: Escalation of care including admission/observation considered Patient would have been admitted to the hospital had his work up had any findings where hospital admission was appropriate and his clinical presentation warranted hospital admission. Lab Data [facility] Lab Attestation statement: I reviewed the patient's lab results. My interpretation of these results are in the [facility] Rationale portion of this note. 11/04/24 14:26 11/04/24 14:26 Labs: Lab Results 11/04/24 Range/Units 14:26 WBC 6.6 (4.8-10.8) X10*3/uL RBC 5.38 (4.60-5.80) X10*6/uL Hgb 16.0 (14.0-18.0) g/dl Hct 47.3 (42.0-52.0) % MCV 87.9 (80.0-98.0) fL MCH 29.7 (27.0-33.0) pg MCHC 33.8 (31.0-36.0) g/dl RDW 13.1 (11.0-16.0) % Plt Count 249 (160-400) X10*3/uL MPV 9.0 L (9.4-12.4) fL Immature Gran % (Auto) 0.3 (0.0-0.4) % Neut % (Auto) 62.0 (45-73) % Lymph % (Auto) 27.4 (20-40) % [place] % (Auto) 8.1 (2-11) % Eos % (Auto) 1.7 (0-4) % Baso % (Auto) 0.5 (0-2) % Lymph # (Auto) 1.8 (1.2-4.9) X10*3/uL [place] # (Auto) 0.5 (0.1-1.2) X10*3/uL Eos # (Auto) 0.1 (0.0-0.4) X10*3/uL Baso # (Auto) 0.0 (0.0-0.2) X10*3/uL Abs Immat Gran (auto) 0.02 (0.00-0.03) X10*3/uL Absolute Neuts (auto) 4.1 (2.0-8.3) x10*3/uL Absolute Nucleated RBC 0.000 (0.0-0.012) X10*3/uL Nucleated RBC % (auto) 0.0 (0.0-0.2) /100WBC Sodium 140 (135-145) mmol/L Potassium 5.2 H D (3.3-5.1) mmol/L Chloride 106 (96-108) mmol/L Carbon Dioxide 28 (22-29) mmol/L Anion Gap 11 L (12-20) BUN 8 L (9-16) mg/dL Creatinine 0.93 (0.5-1.4) mg/dL Estim Creat Clear Calc 117.1 Estimated GFR > 60 Random Glucose 82 (60-115) mg/dL Calcium 10.0 D (8.4-10.2) mg/dL Magnesium 2.1 (1.6-2.6) mg/dL Total Bilirubin 0.6 (0.0-1.0) mg/dL AST 23 (5-37) U/L ALT 7 (0-40) U/L Alkaline Phosphatase 59 (39-117) U/L Troponin I High Sens < 2.7 (<3.5-35.0) ng/L Total Protein 8.1 H (6.5-8.0) g/dL Albumin 4.5 (3.5-5.0) g/dL Independent Interpretation I performed an independent interpretation of an: EKG, Plain X-Ray and CT Scan Interpretation: My interpretation is in agreement with the radiologist's impression of these imaging studies. L Report Number: [id number]: Total DLP = 0.00 mGy-cm EXAMINATION: CT CERVICAL SPINE WITHOUT CONTRAST CLINICAL INFORMATION: Head strike. Neck pain. COMPARISON: None available. TECHNIQUE: 3 mm thin axial and reformatted 2 mm thin sagittal and coronal images of cervical spine were obtained without contrast. This CT examination was performed using dose optimization techniques as appropriate, variously including the following: *Automated exposure control *Adjustment of mA and/or kV according to patient size (this includes techniques or standardized protocols for targeted exams where dose is matched to indication/reason for exam; i.e. extremities or head) *Use of iterative reconstruction technique DLP: 1402 mGy/cm. FINDINGS: There is normal cervical lordosis. The vertebral heights, alignment and disc heights are normal. No visible acute fracture, dislocation or subluxation seen. The prevertebral and paravertebral soft tissues are normal. The lung apices are clear. CT/CT cervical spine wo IV con IMPRESSION: No visible acute fracture or dislocation cervical spine. Fleischner guidelines were followed. Electronically signed by: Kyle Soares MD 11/04/2024 04:50 PM EST RP Dictated By: Kyle Soares MD Signed By: Electronically signed by Kyle Soares MD 11/04/24 1650 EXAMINATION: XR CHEST 1 VIEW HISTORY: weakness COMPARISON: Comparison is made with the prior examination dated 03/09/2018. FINDINGS: A single AP portable view of the chest performed at 2:53 PM is submitted. The lungs are expanded and clear. There is no pleural effusion, pneumothorax, or pulmonary vascular congestion. The heart is normal in size. The bones are intact. XR/XR chest 1V IMPRESSION: No acute cardiopulmonary abnormality. Electronically signed by: Momo Tyson MD 11/04/2024 03:14 PM EST RP Dictated By: Momo Tyson MD Signed By: Electronically signed by Momo Tyson MD 11/04/24 1514 Report Number: [id number]: Total DLP = 1401.91 mGy-cm EXAMINATION: CT HEAD WITHOUT CONTRAST CLINICAL INFORMATION: Fall, head strike, pain COMPARISON: None available. TECHNIQUE: Contiguous axial imaging was performed from the skull base to vertex without intravenous administration of contrast. This CT examination was performed using dose optimization techniques as appropriate, variously including the following: *Automated exposure control *Adjustment of mA and/or kV according to patient size (this includes techniques or standardized protocols for targeted exams where dose is matched to indication/reason for exam; i.e. extremities or head) *Use of iterative reconstruction technique DLP 1402 mGy/cm. FINDINGS: There is no acute intra-axial, extra-axial bleed, masses or midline shift. There is no acute infarction evolution. There is no edema. The mcdonald to white matter differentiation is maintained normal. The lateral ventricles are symmetrical in size and configuration without enlargement. Kaplan to white matter differentiation is maintained normal. Bone windows reveal no calvarial abnormality. There is no scalp soft tissue abnormality. Bilateral paranasal sinuses and mastoid air cells are well-aerated. CT/CT head/brain wo IV con IMPRESSION: No acute intracranial process seen. Electronically signed by: Kyle Soares MD 11/04/2024 04:48 PM [facility] Dictated By: Kyle Soares MD Signed By: Electronically signed by Kyle Soares MD 11/04/24 1648 Report Number: [id number]: Total DLP = 750.00 mGy-cm CLINICAL HISTORY: right sided hinduism pain, worsening, hx of aneursym CT angiography head and neck with contrast. With MIP MPR Postprocessing. Comparison: CTA from 04/06/2024 Findings: Head: No ICA or M1 occlusion. Right A1 segment is diminutive and unchanged. Anterior communicating artery is patent. Accessory (3rd) A2 branch proximal ACAs and proximal MCAs are otherwise unremarkable. The basilar artery is patent. 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 No proximal intracranial arterial aneurysm. Neck: No significant stenosis of either internal carotid artery by NASCET criteria. The vertebral arteries are codominant. three-vessel aortic arch anatomy. Motion artifacts about imaged lung apices. Mild reversal cervical lordosis of the degenerative changes including facet arthropathy. IMPRESSION: Head: 1. No ICA or M1 occlusion. 2. The basilar artery is patent. Neck: 1. No significant stenosis of either internal carotid artery by NASCET criteria. 2. The vertebral arteries are codominant This document has been electronically signed by: Yasir Meredith MD on 11/04/2024 19:40:32 Dictated By: Yasir Meredith MD Signed By: Electronically signed by Yasir Meredith MD 11/04/241940 I independently interpreted this EKG and am in agreement with the below findings: Vent. Rate: 73 BPM Atrial Rate: 73 BPM P-R Int: 154 ms QRS Dur: 82 ms QT Int: 366 ms P-R-T Axes: 22 -12 22 degrees QTcB Int: 403 ms Sinus rhythm with Premature atrial complexes in a pattern of bigeminy Inferior infarct (cited on or before 13-Mar-2023) When compared with ECG of 04-Nov-2024 14:33, Sinus rhythm has replaced Atrial flutter DD/ 1501 Radiology Impression Discussion of test interpretation with radiology: I have reviewed the radiologist's reading. Independent Historian Clinical information obtained from an independent historian. History obtained from or confirmed by: EMS (EMS provided additional history and confirmed the history provided by the patient.) Discharge Plan Discharge Clinical Impression: Headache, Dizziness Patient Disposition: Home, Self-Care Instructions: Acute Headache (DC), Dizziness (ED) Additional Instructions: Your work up today was reassuring that there is no emergent cause for your symptoms. Your head CT and head / neck CTA were both negative for any acute findings. Follow up with your primary care provider. Return to the emergency department immediately if your symptoms worsen or if you develop any numbness, tingling, dizziness, shortness of breath, difficulty breathing, chest pain, blurry vision, loss of vision, nausea, vomiting, abdominal pain, fever, chills, back pain, or any other complaints. Please see the information below about our Patient Portal. If you are not yet enrolled in the [facility] Patient Portal, you will receive an enrollment email invitation following your visit to any [facility] care setting. You may also self-enroll in the Patient Portal by visiting our website: [email or web address] The following information is required to access the Patient Portal: - Your [facility] Medical Record Number - Your personal home email address (must match what is in your electronic medical record, Registration staff can assist with this) - Name - Date of Capabilities of the Patient Portal: - Message some providers - View upcoming appointments - Access your health summary, medical history, and visit history - View current conditions and allergies - View procedure and lab results - View your medications, including guidelines, side effects, and precautions - Complete pre-appointment questionnaires requested by your provider - Ready summary reports of your office visits and procedures To access the Patient Portal Mobile Arianne, follow these directions: - Search [employer] in the [employer]rianne Store or [employer] Store - Download the Arianne - Search for [facility] - Enter your login/password Prescriptions: No Action cyanocobalamin (vitamin B-12) 500 mcg tablet 500 mcg PO DAILY 30 Days Qty: 30 6RF Emgality Pen 120 mg/mL pen injector 120 mg subcut ONCE 30 Days Qty: 30 6RF Rx Instructions: 120mg sc q month carbidopa-levodopa 25-100 mg tablet extended release 2 tab PO BEDTIME 30 Days Qty: 60 6RF Rx Instructions: continue CD-LD IR 25-100mg order carbidopa-levodopa 25-100 mg tablet 1 tab PO .COMPLEX 30 Days Qty: 150 6RF Rx Instructions: 1 tab orally 5 times a day; take w/ a cracker Ubrelvy 100 mg tablet 50 - 100 mg PO ONCE PRN (Reason: migraine headache) 30 Days Qty: 16 6RF Rx Instructions: take at onset of migraine, may repeat in 2hrs (may take w/ Ibuprofen) pramipexole 0.125 mg tablet 0.125 - 0.25 mg PO TID 30 Days Qty: 180 6RF trazodone 50 mg tablet 50 mg PO BEDTIME PRN (Reason: sleep) 30 Days Qty: 30 6RF bupropion HCl 150 mg tablet extended release 24 hr 150 mg PO QAM 30 Days Qty: 30 3RF gabapentin 100 mg capsule See Rx Instructions PO BEDTIME 30 Days Qty: 150 3RF Rx Instructions: 200mg qam and 300mg q evening orally bedtime; Referrals: Nicho Bullard MD [Primary Care Provider] - Print Language: Ukrainian
[2024-11-04 14:30] LABS: MANUAL DIFF FLAG NO
[2024-11-04 14:33] LABS: Basophils Percent Auto 0.5 % (0-2); Eosinophils Absolute Auto 0.1 X10*3/uL (0.0-0.4); Eosinophils Percent Auto 1.7 % (0-4); Hematocrit 47.3 % (42.0-52.0); Imm Gran Abs Auto 0.02 X10*3/uL (0.00-0.03); Imm Gran Pct Auto 0.3 % (0.0-0.4); Lymphocytes Absolute Auto 1.8 X10*3/uL (1.2-4.9); Lymphocytes Percent Auto 27.4 % (20-40); Mean Corpuscular HGB Conc 33.8 g/dl (31.0-36.0); Mean Corpuscular Hemoglobin 29.7 pg (27.0-33.0); Mean Corpuscular Volume 87.9 fL (80.0-98.0); Monocytes Absolute Auto 0.5 X10*3/uL (0.1-1.2); Monocytes Percent Auto 8.1 % (2-11); Neutrophils Absolute Auto 4.1 x10*3/uL (2.0-8.3); Platelet Count 249 X10*3/uL (160-400); Red Blood Count 5.38 X10*6/uL (4.60-5.80); Red Cell Distribution Width 13.1 % (11.0-16.0); White Blood Count 6.6 X10*3/uL (4.8-10.8)
--- NOTE | 2024-11-04 14:50 | ECG_ITS ---
Test Reason : reapeat looking for afib Blood Pressure : */* mmHG Vent. Rate : 73 BPM Atrial Rate : 73 BPM P-R Int : 154 ms QRS Dur : 82 ms QT Int : 366 ms P-R-T Axes : 22 -12 22 degrees QTcB Int : 403 ms Sinus rhythm with Premature atrial complexes in a pattern of bigeminy Inferior infarct (cited on or before 13-Mar-2023) Abnormal ECG When compared with ECG of 04-Nov-2024 14:33, Premature atrial complexes are no longer Present Referred By: Renate Jacob Electronically Signed By: MAXIMILIANO FLORES MD
[2024-11-04 14:51] LABS: Troponin-I High Sensitivity < 2.7 ng/L (<3.5-35.0)
[2024-11-04 14:56] LABS: Alanine Aminotransferase 7 U/L (0-40); Albumin Level 4.5 g/dL (3.5-5.0); Anion Gap 11 (12-20); Aspartate Amino Transferase 23 U/L (5-37); Bilirubin Total 0.6 mg/dL (0.0-1.0); Blood Urea Nitrogen 8 mg/dL (9-16); Carbon Dioxide 28 mmol/L (22-29); Chloride 106 mmol/L (96-108); Creatinine Clr Calc Pharmacy 117.1; Estimated Glomerular Filt Rate > 60; Glucose Random 82 mg/dL (60-115); Magnesium 2.1 mg/dL (1.6-2.6); Potassium 5.2 mmol/L (3.3-5.1); Sodium 140 mmol/L (135-145); Total Protein 8.1 g/dL (6.5-8.0)
[2024-11-04 15:15] VITALS: BP 144/79; PULSE 91
[2024-11-04 15:16] VITALS: BP 147/89; PULSE 78
[2024-11-04 15:18] VITALS: BP 136/95; PULSE 81
[2024-11-04 15:46] LABS: Alkaline Phosphatase 59 U/L (39-117)
[2024-11-04 18:07] VITALS: BP 120/83; PULSE 66; RESP 14; TEMP 36.7; O2SAT 94
[2024-11-04] MEDS: iohexoL 350 MG/ML 100 ML INFUS..BTL IV (18:40)
[2024-11-04 19:15] VITALS: BP 0/0; PULSE 0; RESP 20; TEMP -17.7; TEMP 0; O2SAT 0
== END 2024-11-05 00:32 | disposition home or self-care (01) ==
PROVIDERS: Physician Assistant Medical; Emergency Provider Emergency Medicine; PCP Internal Medicine
DX: R42 Dizziness and giddiness (principal); R51.9 Headache, unspecified; M54.2 Cervicalgia; G20.A1 Parkinson's disease without dyskinesia, without mention of fluctuations; Z79.899 Other long term (current) drug therapy
CPT/HCPCS: 36415; 70450; 70496; 70498; 71045; 72125; 80053; 83735; 84484; 85025; 93005; 99284; Q9967

== ENCOUNTER → 2024-11-04 14:07 | Outpatient (BNV) | payer BC, SELFPAY | PROVIDERS: Emergency Provider Emergency Medicine; PCP Internal Medicine; Visit Provider Internal Medicine Cardiovascular Disease | DX: I49.9 Cardiac arrhythmia, unspecified (principal) | CPT/HCPCS: 93010 ==

== ENCOUNTER → 2024-11-04 14:26 | Outpatient (BNV) | payer BC, SELFPAY | PROVIDERS: Emergency Provider Emergency Medicine; PCP Internal Medicine; Visit Provider Radiology Diagnostic Radiology | DX: R51.9 Headache, unspecified (principal); Z92.86 Personal history of gene therapy; R53.1 Weakness | CPT/HCPCS: 70450; 70496; 70498; 71045; 72125 ==

== ENCOUNTER 2024-11-12 08:44 | Outpatient (REF) | payer BC, SELFPAY ==
[2024-11-12 09:17] LABS: MANUAL DIFF FLAG NO
[2024-11-12 09:43] LABS: Basophils Percent Auto 0.7 % (0-2); Eosinophils Absolute Auto 0.2 X10*3/uL (0.0-0.4); Eosinophils Percent Auto 3.7 % (0-4); Hematocrit 45.2 % (42.0-52.0); Hemoglobin 15.4 g/dl (14.0-18.0); Imm Gran Abs Auto 0.01 X10*3/uL (0.00-0.03); Imm Gran Pct Auto 0.2 % (0.0-0.4); Lymphocytes Absolute Auto 1.4 X10*3/uL (1.2-4.9); Mean Corpuscular HGB Conc 34.1 g/dl (31.0-36.0); Mean Corpuscular Hemoglobin 29.6 pg (27.0-33.0); Mean Corpuscular Volume 86.8 fL (80.0-98.0); Mean Platelet Volume 9.7 fL (9.4-12.4); Monocytes Absolute Auto 0.4 X10*3/uL (0.1-1.2); Monocytes Percent Auto 8.9 % (2-11); Neutrophils Absolute Auto 2.6 x10*3/uL (2.0-8.3); Neutrophils Percent Auto 55.5 % (45-73); Platelet Count 261 X10*3/uL (160-400); Red Blood Count 5.21 X10*6/uL (4.60-5.80); Red Cell Distribution Width 13.2 % (11.0-16.0); White Blood Count 4.6 X10*3/uL (4.8-10.8)
[2024-11-12 09:51] LABS: Estimated Average Glucose 108 mg/dL; Hemoglobin A1c % 5.4 % (<6.0)
[2024-11-12 10:37] LABS: Alanine Aminotransferase 13 U/L (0-40); Albumin Level 4.3 g/dL (3.5-5.0); Alkaline Phosphatase 60 U/L (39-117); Anion Gap 13 (12-20); Aspartate Amino Transferase 22 U/L (5-37); Bilirubin Total 0.4 mg/dL (0.0-1.0); Blood Urea Nitrogen 10 mg/dL (9-16); Carbon Dioxide 25 mmol/L (22-29); Chloride 106 mmol/L (96-108); Estimated Glomerular Filt Rate > 60; Glucose Random 90 mg/dL (60-115); Potassium 4.6 mmol/L (3.3-5.1); Sodium 139 mmol/L (135-145); Total Protein 7.8 g/dL (6.5-8.0)
[2024-11-12 10:54] LABS: TSH reflex Free T4 1.82 uIU/mL (0.32-4.0)
[2024-11-12 11:01] LABS: Folate 6.4 ng/mL (> or = 4.0); Vitamin B12 336 pg/mL (200-900)
[2024-11-14 21:39] LABS: Prot Elec - Albumin 4.4 g/dL (3.8-4.8); Prot Elec - Alpha1 0.3 g/dL (0.2-0.3); Prot Elec - Alpha2 0.7 g/dL (0.5-0.9); Prot Elec - Beta 1 0.5 g/dL (0.4-0.6); Prot Elec - Beta 2 0.4 g/dL (0.2-0.5); Prot Elec - Gamma 1.1 g/dL (0.8-1.7); Prot Elec - Total Protein 7.3 g/dL (6.1-8.1)
[2024-11-16 13:19] LABS: Methylmalonic Acid 174 nmol/L (55-335)
[2024-11-20 11:48] LABS: Vitamin B1 14 nmol/L (8-30)
[2024-11-20 19:49] LABS: Vitamin B2 (Riboflavin) 8.9 nmol/L (6.2-39.0)
== END 2024-11-12 08:45 | disposition home or self-care (01) ==
LOC: HO.LAB 08:44
PROVIDERS: PCP Internal Medicine; Visit Provider Nurse Practitioner Family
DX: G62.9 Polyneuropathy, unspecified (principal); R79.89 Other specified abnormal findings of blood chemistry; E51.9 Thiamine deficiency, unspecified; F32.9 Major depressive disorder, single episode, unspecified; G20.A1 Parkinson's disease without dyskinesia, without mention of fluctuations; R20.2 Paresthesia of skin
CPT/HCPCS: 36415; 80053; 82550; 82607; 82746; 83036; 83090; 83735; 83921; 84165; 84207; 84252; 84425; 84443; 85025

== ENCOUNTER 2025-02-08 07:51 | Outpatient (AMB) | payer BC, SELFPAY ==
[2025-02-08 08:06] VITALS: BP 122/82; PULSE 87; O2SAT 97; BMI 33.9
--- NOTE | 2025-02-08 08:06 | MHC.OFFVIS ---
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 Required: No Accompanied by: Self / Same As Patient Allergies No Known Allergies Allergy (Verified 02/08/25 08:08) Medication List - Last Reconciled 02/08/25 by JOEY Yeager bupropion HCl XL 150 mg PO QAM 90 days carbidopa-levodopa 25-100 mg 2 tabs PO QID 90 days carbidopa-levodopa 25-100 mg ER 2 tabs PO BEDTIME 30 days carbidopa-levodopa 50-200 mg ER 1 tab PO BEDTIME 90 days cyanocobalamin (vitamin B-12) 1,000 mcg (2 x 500 mcg) PO DAILY 30 days gabapentin 200mg qam and 300mg q evening orally bedtime; 90 days galcanezumab-gnlm (Emgality Pen) 120 mg subcut ONCE 30 days midodrine 2.5 mg PO BID 30 days ondansetron 4 - 8 mg (1 - 2 x 4 mg) PO Q6-8H PRN 7 days pramipexole 0.25 mg (2 x 0.125 mg) PO TID 90 days trazodone 50 mg PO BEDTIME PRN 30 days ubrogepant (Ubrelvy) 50 - 100 mg (0.5 - 1 x 100 mg) PO ONCE PRN 30 days HPI Comments Details: 54-yr-old male presents for f/u visit. Patient reports overall he is doing better since we increased the CD-LD dose following pt's [facility] consult visi (see below), in particular regards to his mood and his BLE pain and neuropathy, having some headaches. History of syncope and orthostatic lightheadedness: Orthostatic lightheadedness is stable. Taking fluids regularly- water and Gatorade. He is not taking midodrine recently. He is still f/b cardiology. He can also have room spinning dizziness- with head position changes. BLE pain and neuropathy: He reports his legs are not as shaky since we increased his CD-LD dose. He also feels his BLE neuropathy s/s are better- but still feels sharp jabbing pains and creepy crawling sensation- both at rest and with activity. 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 Gabapentin helps some. Headache: Pt continues to have bilateral temporal pressure- not so much a pain. Has tried Ubrelvy for this- but does not help- even if taken at the 1st sign it does not help much. Denies bruxism. No recent severe migraine attack. He can still be phonophobic more so than photophobic. The Emgality has been helpful for the migraines. Parkinson's disease: He had movement disorder consult at [facility] in Oct 2024- who concurred w/ pt's diagnosis and overall plan- though did suggest to increase his CD-LD dose. They advised pt that he would need to choose to continue care tehre at [facility] or [place] [facility] [place] has opted to continue care here. Pt's current PD medication regimen: CD-LD IR 25-100mg - 1 tab QID. CD-LD ER 25-100mg- 2 tabs q.h.s.. Gabapentin 300mg q 7pm. ADL's: Ind Swallowing: None Drooling: mild- not bothersome Orthostatic lightheadedness: as above Constipation: None Urinary symptoms: None Tremor: has noticed some hand tremor. BLE non-visible hand tremor. Dyskinesia: None- but does occasionally head nods. Stiffness: notices hands clench when he sits. Gait changes: Feeling off-balance. Walking w/ cane Freezing: Less since the last CD-LD increase Falls: Denies falls in the past few months- feels the increased CD-LD is helping this. has walkers on all 4 floors of the house. Mood: He feels his mood is improved- but still has frustrated by his medical conditions and his symptoms. Not yet seeing a therapist. Hallucinations: Denies, but maybe at times thinks he hears something. Memory: Feels he has some cognitive issues. When he is working- he has to focus. He denies phonophobia. Sleep: better but hit or miss Exercise: not a lot- as he cannot put his head down with getting dizzy- as he cannot move his head without being dizzy- like a perpetual roller coaster. 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 CRP- 3.5 H 06/18/23, In-Lab PSG: Sleep efficiency 55%, PLMS 6/hr w/ PLMS arousal index 0.9/hr, AHI 0/hr, REM AHI 0/hr, O2 katlyn 91% w/ average SpO2 94%. 05/21/13, Brain MRI w/wo: No findings of an acute intracranial process or abnormal enhancement. 06/24/23, Brain MRI/MRA w/o: Questionable vessel tortuosity versus 2 mm saccular aneurysm distal A2 segment of the right INDIRA. 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 Remainder of the intracranial vessels demonstrate no hemodynamically significant stenosis, focal aneurysm, or discrete vascular cutoff 07/14/23, DaTscan: slight decreased activity in the posterior putamen bilaterally. [facility] Medical History Parkinson's disease without dyskinesia GERD (gastroesophageal reflux disease) Cerebral aneurysm Vertigo Bilateral lower extremity pain Hiatal hernia with gastroesophageal reflux Duodenal ulcer Surgical History No pertinent past surgical history Family History Father Past heart attack Parkinsons disease Mother Hypertension Sister No problems noted. Brother No problems noted. Brother No problems noted. Brother No problems noted. Brother No problems noted. 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 LUE- mild tone BUE FFM- intact Foot taps- bradykinesia Stand easily, steadier upon standing, less stoop, left shoulder drooped, shorter steps, steady gait w/ cane. Assessment & Plan Assessment & Plan (1) Parkinson's disease without dyskinesia: Comment: Likely early PD in setting of family h/o PD. DaTscan, 07/14/23, slight decreased activity in the posterior putamen bilaterally. Code(s): G20.A1 - Parkinson's disease without dyskinesia, without mention of fluctuations Category: Medical (2) Memory loss: Code(s): R41.3 - Other amnesia Category: Medical (3) Benign paroxysmal vertigo, unspecified ear: Code(s): H81.10 - Benign paroxysmal vertigo, unspecified ear Category: Medical (4) Major depression: Code(s): F32.9 - Major depressive disorder, single episode, unspecified Category: Medical (5) Anxiety: Code(s): F41.9 - Anxiety disorder, unspecified Category: Medical (6) Migraine without aura: Comment: s/p fall on 03/14/23 Code(s): G43.009 - Migraine without aura, not intractable, without status migrainosus Category: Medical Qualifiers: Status migrainosus presence: without status migrainosus Intractability: not intractable Qualified Code(s): G43.009 - Migraine without aura, not intractable, without status migrainosus (7) Peripheral neuropathy: Comment: BLE EMG/NCS- 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 Concur with cardiology's recommendation for liberalize salt intake. Continue to stand slowly. Follow-up w/ cardiology as scheduled. For positional dizziness: Start vestibular PT eval & tx For BLE peripheral neuropathy: Continue exercise. Try adding BLE foot/ankle exercises- list of simple exercises shared w/ pt. Continue Vitamin B-12. Continue Gabapentin 200 mg q.a.m. and 300 mg q.h.s. For PD: Continue CD-LD IR 25-100mg - 2 tabs QID. Adjust CD-LD ER 25-100mg 2 tabs QHS to CD-LD ER 50-200mg daily at bedtime- to reduce pill burden. Continue Pramipexole 0.125mg- 2 tabs (0.25mg) po 3 x's per day. Encourage patient to increase his physical activity again as his lightheadedness has improved, this would likely help both his mood and motor symptoms. [facility] movement Clinic consult notes reviewed. Previous PD trials- Rasagiline- ineffective. For mood and sleep: Increase bupropion XL from 150 mg q.a.m. to 300mg XL qam- in hope this further helps mood, energy, cognition, focus. Continue trazodone 50 mg q.h.s. Patient again encouraged to establish care w/ a psychologist/clinical social director. Will request baseline neuro-psych evaluation. For acute headache treatment: Tylenol prn. Ubrelvy prn- trial Ubrelvy for bilateral temporal headache he has been having. Cyclobenzaprine prn Previous acute migraine medication trials: Tylenol- ineffective. Sumatriptan- ineffective. Rizatripatn- not fully effective. Elyxyb- samples- ineffective. Acute migraine medication contraindications: None at this time ? For headache prevention medication: Magnesium 400mg qhs Continue Emgality 120mg sc q month as pt is having good clinical effect. Previous migraine prevention medication trials: Propranolol Er 60mg qhs d/t orthostatic dizziness. Amitriptyline 50mg qhs- ineffective Migraine prevention medication contraindications: None at this time ? Will follow-up upon review of above and patient to follow-up in clinic in 3-6 months or sooner prn. Orders: Orders PT Evaluation and Treatment 02/08/25 H81.10 - Benign paroxysmal vertigo, unspecified ear Referrals Neuropsychiatry Referral F32.9 - Major depressive disorder, single episode, unspecified, F41.9 - Anxiety disorder, unspecified, G20.A1 - Parkinson's disease without dyskinesia, without mention of fluctuations, G43.009 - Migraine without aura, not intractable, without status migrainosus, R41.3 - Other amnesia, S06.0XAA - Concussion with loss of consciousness status unknown, initial encounter Medications: New carbidopa-levodopa 50-200 mg ER 1 tab PO BEDTIME 90 tabs 1RF 90 days ondansetron 4 - 8 mg (1 - 2 x 4 mg) PO Q6-8H PRN 28 tabs 0RF nausea and vomiting 7 days bupropion HCl XL 300 mg PO QAM 30 tabs 3RF 30 days magnesium oxide may hold for loose stools 400 mg PO BEDTIME 30 tabs 6RF 30 days Changed From pramipexole 0.125 - 0.25 mg (1 - 2 x 0.125 mg) PO TID 30 days 180 tabs 6RF To pramipexole 0.25 mg (2 x 0.125 mg) PO TID 540 tabs 1RF 90 days From gabapentin 200mg qam and 300mg q evening orally bedtime; 30 days 150 caps 6RF To gabapentin 200mg qam and 300mg q evening orally bedtime; 150 caps 1RF 90 days From carbidopa-levodopa 25-100 mg 1 tab orally 5 times a day; take w/ a cracker 30 days 150 tabs 6RF To carbidopa-levodopa 25-100 mg 2 tabs PO QID 720 tabs 1RF 90 days Discontinued nirmatrelvir-ritonavir 300 mg (150 mg x 2)-100 mg (Paxlovid) Discontinued Reason: Patient Completed Course take TWO 150 mg tablets of nirmatrelvir with ONE 100 mg tablet of ritonavir twice daily for 5 days PO 30 ea 0RF Coding Level of Care Code Est Pt Level 4 (03358) Complex EM visit Add On G2211 Diagnoses Parkinson's disease without dyskinesia G20.A1 Memory loss R41.3 Benign paroxysmal vertigo, unspecified ear H81.10 Major depression F32.9 Anxiety F41.9 Migraine without aura and without status migrainosus, not intractable G43.009 Status migrainosus presence: without status migrainosus Intractability: not intractable Peripheral polyneuropathy G62.9 Peripheral neuropathy type: polyneuropathy, unspecified
== END 2025-02-08 09:32 | disposition home or self-care (01) ==
LOC: HO.HSMS 07:52
PROVIDERS: PCP Internal Medicine; Visit Provider Nurse Practitioner Family
DX: G20.A1 Parkinson's disease without dyskinesia, without mention of fluctuations (principal); R41.3 Other amnesia; H81.10 Benign paroxysmal vertigo, unspecified ear; F32.9 Major depressive disorder, single episode, unspecified; F41.9 Anxiety disorder, unspecified; G43.009 Migraine without aura, not intractable, without status migrainosus; G62.9 Polyneuropathy, unspecified
CPT/HCPCS: 99214

== ENCOUNTER 2025-02-22 13:40 | Outpatient (AMB) | payer BC, SELFPAY ==
[2025-02-22 13:42] VITALS: BP 118/74; PULSE 79; O2SAT 98; BMI 33.4
--- NOTE | 2025-02-22 13:42 | MHC.PC.OV ---
Vital Signs 02/22/25 13:42 Height 5 ft 11 in Weight 239 lb 6 oz BMI 33.4 BP 118/74 Blood Pressure Location Lt brachial Position Sitting Pulse 79 Pulse Source Pulse Oximeter Pulse Oximetry (%) 98 Oxygen Delivery Method Room Air Intake Visit Reasons: FAIZA Dr Bullard Tong Hooker Required: No Accompanied by: Self / Same As Patient Allergies No Known Allergies Allergy (Verified 02/22/25 13:42) Tobacco use date assessed: 02/22/25 Dental Screening Dental Screen Date: 02/22/25 Did you have a dental visit in the last 12 months?: No Did you have a dental problem in the last 6 months where you did not have access to dental care?: No Was dental information given to patient?: No PFS Medical History Parkinson's disease without dyskinesia GERD (gastroesophageal reflux disease) Cerebral aneurysm Vertigo Bilateral lower extremity pain Hiatal hernia with gastroesophageal reflux Duodenal ulcer Surgical History No pertinent past surgical history Family History Father Past heart attack Parkinsons disease Mother Hypertension Sister No problems noted. Brother No problems noted. Brother No problems noted. Brother No problems noted. Brother No problems noted. 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 1. Little interest or pleasure in doing things: several days 2. Feeling down, depressed, or hopeless: several days 3. Trouble falling or staying asleep, or sleeping too much: nearly every day 4. Feeling tired or having little energy: nearly every day 5. Poor appetite or overeating: not at all 6. Feeling bad about yourself - or that you are a failure or have let yourself or your family down: nearly every day 7. Trouble concentrating on things, such as reading the newspaper or watching television: nearly every day 8. Moving or speaking so slowly that other people could have noticed. Or the opposite - being so fidgety or restless that you have been moving around a lot more than usual: nearly every day 9. Thoughts that you would be better off or of hurting yourself in some way: not at all Total score: 17 Source: Developed by Drs. Momo Vann, Naomi Schroeder, Tim Blackwell and colleagues, with an educational keny from [facility]. Thrive Questionnaire Date Thrive assessed: 02/22/25 I am a: Patient What is your living situation today?: I have a steady place to live Within the past 12 months, did the food you bought not last and you didn't have the money to get more?: I choose not to answer this question Within the past 12 months, did you worry whether your food would run out before you got money to buy more?: I choose not to answer this question Do you have trouble paying for medicines?: No Do you have trouble getting transportation to medical appointments?: No Do you have trouble paying your heating and electricity bill?: I choose not to answer this question Do you have trouble taking care of your child, family member or friend?: I choose not to answer this question Do you have trouble with day-to-day activities such as bathing, preparing meals, shopping, managing finances, etc.?: Yes Are you currently unemployed and looking for a job?: No Are you interested in more education?: No Please select the resources that you would like help with: None THRIVE Score: 0 AUDIT C Alcohol Use Questionnaire (AUDIT-C) 1. How often do you have a drink containing alcohol?: Never 3. How often do you have six or more drinks on one occasion?: Never Total Score: 0 DEEPAK-7 AMB Questionnaire DEEPAK-7 Date DEEPAK - 7 assessed: 02/22/25 Feeling nervous, anxious, or on edge: 0 = Not at all Not being able to stop or control worryin = Not at all Worrying too much about different things: 0 = Not at all Trouble relaxin = Not at all Being so restless that it is hard to sit still: 0 = Not at all Becoming easily annoyed or irritable: 0 = Not at all Feeling afraid as if something awful might happen: 0 = Not at all Total DEEPAK-7 score (0-4 normal; 5-9 mild; 10-14 moderate; 15-21 severe): 0 Source: Developed by Drs. Momo Vann, Naomi Schroeder, Tim Blackwell and colleagues, with an educational keny from [facility]. Physical exam (Primary Care) Vital Signs: Last Vital Signs Pulse 79 02/22/25 13:42 BP 118/74 02/22/25 13:42 Pulse Ox 98 02/22/25 13:42 Oxygen Delivery Method Room Air 02/22/25 13:42 BMI result Body Mass Index 33.4 Tobacco/Smoking Status: Tobacco use Status Tobacco use date assessed 02/22/25 02/22/25 13:51 Patient Tobacco Use Status Current everyday Tobacco 02/22/25 13:51 Tobacco use type Cigarette 02/22/25 13:51 e-Cigarette/Vaping Use Currently Using 02/22/25 13:51 PHQ-9: PHQ-9 Score PHQ-9: Total score 17 02/22/25 14:19 Thrive Assessment: Date of Thrive Assessment Date Thrive assessed 02/22/25 02/22/25 13:51 Const General: alert; No acute distress Eyes Conjunctivae: conjunctivae normal Resp Auscultation: clear to auscultation bilaterally Cardio Rate: regular rate Rhythm: regular rhythm GI Inspection: Yes normal to inspection Extrem General: Yes normal to inspection and No edema Coding Level of Care Code Est Pt Level 4 (18141) Diagnoses Lee's esophagus K22.70 Migraine without aura and without status migrainosus, not intractable G43.009 Intractability: not intractable Status migrainosus presence: without status migrainosus Parkinson's disease without dyskinesia G20.A1 Tobacco abuse Z72.0 Obesity E66.9 Major depression F32.9 Eczema L30.9 Nasal mass J34.89 Assessment & Plan Assessment & Plan (1) Lee's esophagus: Comment: A lifelong diagnosis since he was teenager but is last endoscopy was in [place] and do not have records Code(s): K22.70 - Lee's esophagus without dysplasia Category: Medical Plan: Avoid the foods that causes that usually spicy foods, tomato products, juices, coffee, soda and foods that your sensitive to. After eating do not lie down, allow 3-4 hours before in lie down. And keep the head of bed above 30 degrees to avoid the acid from going up. (2) Migraine without aura: Comment: s/p fall on 03/14/23 Code(s): G43.009 - Migraine without aura, not intractable, without status migrainosus Category: Medical Qualifiers: Intractability: not intractable Status migrainosus presence: without status migrainosus Qualified Code(s): G43.009 - Migraine without aura, not intractable, without status migrainosus Plan: Patient follows up with Neurology and has been given Emgality and Ubrelvy (3) Parkinson's disease without dyskinesia: Comment: Likely early PD in setting of family h/o PD. DaTscan, 07/14/23, slight decreased activity in the posterior putamen bilaterally. Code(s): G20.A1 - Parkinson's disease without dyskinesia, without mention of fluctuations Category: Medical Plan: Patient has been seeing Neurology and has been placed on carbidopa levodopa (4) Tobacco abuse: Comment: stopped 2021 Code(s): Z72.0 - Tobacco use Category: Medical Plan: Patient is strongly advised to stop smoking (5) Obesity: Code(s): E66.9 - Obesity, unspecified Category: Medical Plan: Diet and exercise (6) Major depression: Code(s): F32.9 - Major depressive disorder, single episode, unspecified Category: Medical Plan: Continue with therapy presently (7) Eczema: Code(s): L30.9 - Dermatitis, unspecified Category: Medical (8) Nasal mass: Code(s): J34.89 - Other specified disorders of nose and nasal sinuses Category: Medical Plan History of Present Illness The patient is a 54-year-old male presenting for a first-time visit for evaluation and management of multiple chronic conditions. The patient has a history of Lee's esophagus, which has been monitored with regular endoscopies since age 17, with the next appointment scheduled for February 28. He reports a history of smoking but has quit since 2021. The patient has been diagnosed with Parkinson's disease, characterized by gait imbalance and cognitive impairment. He follows up with neurology and is on medications including carbidopa-levodopa and pramipexole. He has been advised to undergo vestibular physical therapy and neuropsychiatric testing. The patient has a history of migraines, for which he is on medications including Ubrelvy and Emgality. He was seen in the emergency room for dizziness and headache in October. The patient has a history of depression, managed with bupropion and trazodone. He expresses difficulty accepting his Parkinson's diagnosis and is considering counseling. The patient reports a bump inside his nose, suspected to be a deviated septum, and plans to consult ENT for further evaluation. The patient has a history of leukopenia and elevated homocysteine levels, with normal thyroid function and renal function. His last echocardiogram showed a low normal ejection fraction with impaired relaxation filling pattern and a mildly dilated ascending aorta. Health Maintenance - Advised to stop smoking and maintain a healthy diet with more plant proteins - Recommended shingles vaccine, tetanus shot, and pneumonia vaccine - Scheduled for endoscopy for Lee's esophagus follow-up - Encouraged to engage in physical therapy and occupational therapy for Parkinson's disease Social History - Former smoker, quit in 2021 - Reports consuming more than 150 ounces of water daily - Diet includes processed foods, plans to shift towards healthier options Review of Systems - Neurological: Reports cognitive impairment, gait imbalance, and coordination issues - Cardiovascular: Denies chest pain or palpitations - Respiratory: Denies dyspnea or cough - Gastrointestinal: Reports Lee's esophagus - Musculoskeletal: Reports weakness in lower extremities - Psychiatric: Reports depression and difficulty accepting Parkinson's diagnosis Physical Exam General: Cooperative, healthy appearing, comfortable, no acute distress and well developed Orientation: Patient oriented x3 Limitations: No limitations Head: Normal to inspection Ears: Hearing grossly normal bilaterally Nose: Bump inside the nose, possibly a deviated septum Face and sinus: Normal facial exam Eyes: Appearance normal, both eyes and all related structures Neck: Normal visual inspection and Yes full ROM Respiratory: Normal respiratory effort and able to speak in complete sentences. Clear to auscultation bilaterally Cardiovascular: Regular rate and rhythm. Normal S1 and S2. Echocardiogram showing low normal ejection fraction 50 to 55% with impaired relaxation filling pattern, normal valves, mildly dilated ascending aorta 3.9 cm GI: Normal to inspection. Soft to palpation and nontender Skin: No rashes or lesions noted, history of contact eczema on hands Neuro: Patient oriented x3, progressive disorder of gait imbalance, neuropathy in legs, cognitive issues noted Extremities: Normal to inspection, weakness noted in legs Results - Echocardiogram: Low normal ejection fraction, impaired relaxation filling pattern, mildly dilated ascending aorta - Blood work: Leukopenia, elevated homocysteine, normal thyroid and renal function Plan The patient will continue to follow up with neurology for management of Parkinson's disease, including medication adjustments and vestibular physical therapy. He is advised to maintain a healthy diet, focusing on plant proteins, and to engage in regular physical activity as tolerated. The patient is encouraged to quit smoking and is advised to receive the shingles vaccine, tetanus shot, and pneumonia vaccine as part of preventative care. For migraine management, the patient will continue on Ubrelvy and Emgality, with follow-up as needed for efficacy and side effects. He is advised to consult ENT for evaluation of the nasal bump, suspected to be a deviated septum. The patient will undergo regular monitoring for Lee's esophagus with scheduled endoscopies. He is advised to consider counseling for depression and difficulty accepting his Parkinson's diagnosis. Patient was informed and verbally consented to the use of an ambient scribe for clinic note documentation during this visit. Discussion Notes During the visit, I discussed with the patient the management of his Parkinson's disease, emphasizing the importance of medication adherence and physical therapy. We reviewed his migraine treatment plan, including the use of Ubrelvy and Emgality, and discussed potential side effects. I advised him on the benefits of quitting smoking and maintaining a healthy diet, and recommended vaccinations for shingles, tetanus, and pneumonia. We also discussed the need for ENT evaluation for his nasal bump and the importance of regular endoscopies for Lee's esophagus. I encouraged him to consider counseling to help manage his depression and acceptance of his Parkinson's diagnosis. Patient Instructions - Continue taking prescribed medications for Parkinson's disease and migraines. - Follow up with neurology and attend vestibular physical therapy sessions. - Maintain a healthy diet with more plant proteins and engage in regular physical activity. - Schedule vaccinations for shingles, tetanus, and pneumonia. - Consult ENT for evaluation of nasal bump. - Consider counseling for depression and acceptance of Parkinson's diagnosis. - Schedule and attend regular endoscopies for Lee's esophagus monitoring. Orders: Orders XR nasal bones min 3V Today J34.89 - Other specified disorders of nose and nasal sinuses Complete Blood Count Auto Diff Today K22.70 - Lee's esophagus without dysplasia Comprehensive Met. Panel Today K22.70 - Lee's esophagus without dysplasia Lipid Panel Today E78.00 - Pure hypercholesterolemia, unspecified, K22.70 - Lee's esophagus without dysplasia Prostate Specific Antigen Scr Today K22.70 - Lee's esophagus without dysplasia PT Evaluation and Treatment Today H81.10 - Benign paroxysmal vertigo, unspecified ear Free T4 (Free Thyroxine) Today K22.70 - Lee's esophagus without dysplasia Thyroid Stimulating Hormone Today K22.70 - Lee's esophagus without dysplasia Vitamin B12 and Folate Today K22.70 - Lee's esophagus without dysplasia Hemoglobin A1c Today K22.70 - Lee's esophagus without dysplasia UA CC w/rflx Micro + Cult Today K22.70 - Lee's esophagus without dysplasia, R30.0 - Dysuria Referrals Psychiatry Referral F32.9 - Major depressive disorder, single episode, unspecified Ear/Nose/Throat Referral J34.89 - Other specified disorders of nose and nasal sinuses Psychiatry Outpatient Consultation Service F32.9 - Major depressive disorder, single episode, unspecified Medications: New triamcinolone acetonide 0.5% 1 appl topical BID 30 grams 0RF L30.9 - Dermatitis, unspecified
== END 2025-02-22 14:50 | disposition home or self-care (01) ==
LOC: HO.HMCH 13:40
PROVIDERS: PCP Internal Medicine; Visit Provider Internal Medicine
DX: K22.70 Barrett's esophagus without dysplasia (principal); G20.A1 Parkinson's disease without dyskinesia, without mention of fluctuations; E66.9 Obesity, unspecified; Z68.33 Body mass index [BMI] 33.0-33.9, adult; G43.009 Migraine without aura, not intractable, without status migrainosus; Z72.0 Tobacco use; F32.9 Major depressive disorder, single episode, unspecified; L30.9 Dermatitis, unspecified; J34.89 Other specified disorders of nose and nasal sinuses

== ENCOUNTER → 2025-02-22 13:40 | Outpatient (BNVA) | payer BC, SELFPAY | PROVIDERS: PCP Internal Medicine; Visit Provider Internal Medicine | DX: Z13.89 Encounter for screening for other disorder (principal) ==

== ENCOUNTER 2025-03-09 10:04 | Outpatient (REF) | payer BC, SELFPAY ==
--- NOTE | ~2025-03-09 | XR_ITS ---
EXAMINATION: XR NASAL BONES CLINICAL INFORMATION: J34.89 - Other specified disorders of nose and nasal sinuses COMPARISON: None available. TECHNIQUE: AP and lateral views. FINDINGS: No acute cortical disruption. No lytic or blastic lesions. No air-fluid levels in the paranasal sinuses. No metallic or radiopaque foreign body. XR/XR nasal bones min 3V IMPRESSION: No acute fracture, nasal bones. Electronically signed by: Keith Rudd MD 03/09/2025 10:54 AM EDT
== END 2025-03-09 10:05 | disposition home or self-care (01) ==
LOC: HO.XRAY 10:04
PROVIDERS: PCP Internal Medicine; Visit Provider Internal Medicine
DX: J34.89 Other specified disorders of nose and nasal sinuses (principal)
CPT/HCPCS: 70160

== ENCOUNTER → 2025-03-09 10:10 | Outpatient (BNV) | payer BC, SELFPAY | PROVIDERS: PCP Internal Medicine; Visit Provider Radiology Diagnostic Radiology | DX: J34.89 Other specified disorders of nose and nasal sinuses (principal) | CPT/HCPCS: 70160 ==

== ENCOUNTER 2025-04-14 09:09 | Outpatient (AMB) | payer BC, SELFPAY ==
--- NOTE | 2025-04-14 09:10 | MHC.OFFVIS ---
Vital Signs 04/14/25 09:16 Height 5 ft 11 in Weight 223 lb 1.725 oz BMI 31.1 BP 123/68 Blood Pressure Location Lt brachial Position Sitting Intake Visit Reasons: egd recall this has been r/sed 4x already Intake Note: Nacho presents to in office visit for EGD consult. CC: Patient denies having any GI symptoms or concerns today, except some heartburn if he eats late or something wrong. Allergies No Known Allergies Allergy (Verified 04/14/25 09:23) HPI HPI egd recall this has been r/sed 4x already: Details: Assessment & Plan (1) Lee's esophagus: Comment: A lifelong diagnosis since he was teenager but is last endoscopy was in [place] and do not have records Code(s): K22.70 - Lee's esophagus without dysplasia Plan: He quit smoking!! He is asking me to decrease his smoking patch because he has not been able to get a hold of Dr. Bullard, but I am reluctant to get involved in this. I sent a note to Dr. Bullard to help him get this. He has been slowly feeling better, he has less of a grabbing pain than before; although he felt worse after the multiple biopsies. He tolerated the actual procedure well. We do not have records of its pass endoscopy is but he seems to remember that his Lee's started at around ?the 20.? Which may mean that it is moving further up esophagus since we seem to see it at 18 cm, however this also could just me does not remember everything about it. The barium swallow ordered by Dr. Mccloud is coming u 07/08. She seems to feel that if this was negative and he was not improving we should consider a CT scan of the chest. He took another job and the money and the atmosphere is better and he has more family time. This may be why he is feeling better more than the medications. He complains of a very poor appetite, he has not desire to eat and will only eat a banana and a small yogurt all day. He likes to drink water. 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 ROV 1 week after barium swallow (2) GERD (gastroesophageal reflux disease): Code(s): K21.9 - Gastro-esophageal reflux disease without esophagitis (3) Early satiety: Code(s): R68.81 - Early satiety Orders: Orders NM gastric emptying study Today R68.81 - Early satiety GES 09/16/2022 MPRESSION: Normal solid food gastric emptying study. TODAY'S VISIT Patient has been lost to follow-up since 2021 and apparently is here today for repeat EGD for his Lee's esophagus. He was diagnose Parkinson's disease shortly after our last visit and this has been his focus, understandably, over the past 2 years. It has been a big adjustment for him but he is still working greater than 40 hours a week and he hopes to continue managing his life. The biggest problem he has had has been with chronic dizziness which has increased his fall risk. We discussed colon cancer screening which she admits he has been avoiding. He has no family history of colon cancer so he would be a good candidate for Cologuard. We watch the Cologuard video and I address his questions with regards to the screening process and let him know that if it is positive we still need to consider colonoscopy. He is agreeable to this. He has concerns about anesthesia and sedation relative to his Parkinson's I will be discussing this with his neurologist in his upcoming appointment in 4 weeks. They will contact me if there is any concern that this should be postponed. I advised him that he should plan to just stay in the easy chair after the procedure and perhaps get a urinal to minimize his fall risk. I also advised that he have someone at home with him. He denies any cardiac or respiratory problems. There are no infectious disease problems. Return office visit in 8 weeks to review Cologuard. I also let him know that Parkinson's patients sometimes have a great deal of gastrointestinal problems including constipation and he should reach out to our service if he ever needs help with management. At this time he is doing well and not having trouble with his bowels. [facility] Medical History Headache Knee pain Right hand pain Family history of cardiac arrest Smoker Restless sleeper Family history of Parkinson disease Parkinson's disease without dyskinesia GERD (gastroesophageal reflux disease) Cerebral aneurysm Vertigo Bilateral lower extremity pain Hiatal hernia with gastroesophageal reflux Duodenal ulcer Surgical History History of esophagogastroduodenoscopy (EGD) No pertinent past surgical history Family History Father Past heart attack Parkinsons disease Mother Hypertension Sister No problems noted. Brother No problems noted. Brother No problems noted. Brother No problems noted. Brother No problems noted. 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 Cognitive needs: No Hearing needs: No Vision needs: No Review of Systems Const Denies fatigue, Denies fever(s), Reports frequent falls, Denies night sweats, Denies poor appetite and Denies weight loss ENT Reports Normal hearing present, Denies dental pain, Denies dysphagia, Reports dizziness, Denies hearing loss, Denies mouth pain, Denies odynophagia, Reports disequilibrium, Denies throat swelling, Denies tongue swelling and Reports other (Dentition adequate) Card Reports no additional complaints Resp Reports no additional complaints GI Details: Denies abdominal pain, Denies melena, Denies bloating, Denies hematochezia, Denies constipation, Denies GI cramping, Denies dysphagia, Denies excessive flatus, Denies early satiety, Reports heartburn, Denies diarrhea, Denies nausea, Denies odynophagia, Denies vomiting and Denies hematemesis Musc Reports abnormal gait Skin/Breast Denies pruritus, Denies lesions, Denies rash and Denies jaundice Neuro Reports Normal hearing present, Denies Abnormal speech present, Reports abnormal gait, Reports dizziness, Reports frequent falls, Reports tremor(s) and Reports disequilibrium Endo Denies fatigue Aller/Immun Denies throat swelling and Denies tongue swelling Physical Exam Vital Signs: Last Vital Signs BP 123/68 04/14/25 09:16 BMI result Body Mass Index 31.1 Const General: cooperative, no acute distress, well developed and well groomed Nutritional Appearance: well nourished and obese centrally obese Orientation/consciousness: oriented to person, oriented to place and oriented to time Limitations: No language barrier and ambulation with cane HEENT Head: Yes normocephalic and Yes atraumatic Eyes General: appearance normal, both eyes and all related structures Pupils: Equal, round and reactive pupils present Neck Neck: Yes normal visual inspection and Yes no lymphadenopathy Thyroid: Thyroid normal Resp Effort & Inspection: normal respiratory effort and able to speak in complete sentences Auscultation: clear to auscultation bilaterally Cardio Rate: regular rate Rhythm: regular rhythm Heart sounds: Normal, physiologic split S2 sound present Peripheral pulses: radial pulses present and posterior tibial pulses present GI Inspection: No distended, No Abdominal panniculus present and Yes obesity Palpation (GI): Soft to palpation, nontender, no guarding, not rigid and No hepatosplenomegaly present Percussion: Yes normal to percussion Auscultation: normal bowel sounds Rectal Exam - Male: Yes deferred Skin General skin exam: no rashes or lesions noted, turgor normal, skin not dry, no jaundice, No spider nevi and no striae Rashes: no rashes Nails: normal Neuro General: oriented to person, oriented to place and oriented to time Cranial nerves: Yes Equal, round and reactive pupils present and Yes Normal hearing present Speech: No Abnormal speech present Gait exam (Neuro): Shuffling gait present Motor exam (neuro): Tremors during motor activity present Extrem General: Yes normal to inspection, No clubbing, No cyanosis and No edema Psych Appearance: grossly normal and well kempt Mental Status: mental status grossly normal Speech and movement: Normal speech and movement present Affect: normal affect Attitude: cooperative Thought process: Normal thought process present and not confabulating Thought content: Normal thought content present Insight: Good insight present (Psych) Judgement: Good judgement present (Psych) Assessment & Plan Assessment & Plan (1) Lee's esophagus: Comment: A lifelong diagnosis since he was teenager but is last endoscopy was in [place] and do not have records Code(s): K22.70 - Lee's esophagus without dysplasia Category: Medical (2) Memory loss: Code(s): R41.3 - Other amnesia Category: Medical (3) Parkinson's disease without dyskinesia: Comment: Likely early PD in setting of family h/o PD. DaTscan, 07/14/23, slight decreased activity in the posterior putamen bilaterally. Code(s): G20.A1 - Parkinson's disease without dyskinesia, without mention of fluctuations Category: Medical (4) Tobacco abuse: Comment: stopped 2021 Code(s): Z72.0 - Tobacco use Category: Medical (5) Encounter for colorectal cancer screening using Cologuard test: Code(s): Z12.11 - Encounter for screening for malignant neoplasm of colon; Z12.12 - Encounter for screening for malignant neoplasm of rectum Category: Medical Plan Patient has been lost to follow-up since 2021 and apparently is here today for repeat EGD for his Lee's esophagus. He was diagnose Parkinson's disease shortly after our last visit and this has been his focus, understandably, over the past 2 years. It has been a big adjustment for him but he is still working greater than 40 hours a week and he hopes to continue managing his life. The biggest problem he has had has been with chronic dizziness which has increased his fall risk. We discussed colon cancer screening which she admits he has been avoiding. He has no family history of colon cancer so he would be a good candidate for Cologuard. We watch the Cologuard video and I address his questions with regards to the screening process and let him know that if it is positive we still need to consider colonoscopy. He is agreeable to this. He has concerns about anesthesia and sedation relative to his Parkinson's I will be discussing this with his neurologist in his upcoming appointment in 4 weeks. They will contact me if there is any concern that this should be postponed. I advised him that he should plan to just stay in the easy chair after the procedure and perhaps get a urinal to minimize his fall risk. I also advised that he have someone at home with him. He denies any cardiac or respiratory problems. There are no infectious disease problems. Return office visit in 8 weeks to review Cologuard. I also let him know that Parkinson's patients sometimes have a great deal of gastrointestinal problems including constipation and he should reach out to our service if he ever needs help with management. At this time he is doing well and not having trouble with his bowels. Orders: Orders EGD - GI Use Only Today K22.70 - Lee's esophagus without dysplasia Coding Level of Care Code New Pt Level 3 (30973) Diagnoses Lee's esophagus K22.70 Memory loss R41.3 Parkinson's disease without dyskinesia G20.A1 Tobacco abuse Z72.0 Encounter for colorectal cancer screening using Cologuard test Z12.11; Z12.12
[2025-04-14 09:16] VITALS: BP 123/68; BMI 31.1
--- OUTSIDE RECORDS SUMMARY | 2025-04-14 09:24 | XMS_ITS | Clinical Summary ---
Author Organization [facility] Address [address] [place] [address] Care Team Providers Care Event Security Officer Name Role Phone Nicho Bullard MD Primary Care Provider [phone] Encounters Date Type Department Care Team Description 04/10/[address] [place] [address] Lanie Mcgill MA from Last 3 Months Surgical History Surgery Date Site/Laterality Comments OTHER SURGICAL HISTORY PROCEDURE: DENIES PREVIOUS SURGERY Medical History Medical History Date Comments Lee's esophagus DX:Lee's esophagus; COMMENT: Duodenal ulcer, hiatal hernia with GERD Anxiety disorder DX:Anxiety diso rder Social History Tobacco Use Types Packs/Day Years Used Date Smoking Tobacco: Every Day Smokeless Tobacco: Never Sex and Gender Information Value Date Recorded Sex Assigned at Not on file Legal Sex Male 8:57 PM EST Gender Identity Not on file Sexual Orientation Not on file Obstetrics History Plan of Treatment Health Maintenance Due Date Last Done Comments DTaP,Tdap,and Td Vaccines (1 - Tdap) 1990 Hepatitis B Vaccines (1 of 3 - 19+ 3-dose series) 1990 Pneumococcal Vaccine: 50+ Ye ars (1 of 2 - PCV) 1990 Zoster Vaccines (1 of 2) 2021 Cholesterol Screening (Lipid Panel) 09/25/2023 Colorectal Cancer Screening: Colonoscopy 09/25/2023 HIV Screening 09/25/2023 Hepatitis C Screening 09/25/2023 Social Influencers of Health Screening 09/25/2023 COVID-19 Vaccine ( - 2023-2 5 season) 2024 Depression Screening 08/31/2024 Influenza Vaccine (#1) 2025 HIB Vaccines Aged Out No longer eligi ble based on patient's age to complete this topic HPV Vaccines Aged Out No longer eligi ble based on patient's age to complete this topic Hepatitis A Vaccines Aged Out No long er eligible based on patient's age to complete this topic IPV Vaccines Aged Out No longer eligi ble based on patient's age to complete this topic MMR Vaccines Aged Out No longer eligi ble based on patient's age to complete this topic Meningococcal ACWY Vaccine Aged Out N o longer eligible based on patient's age to complete this topic Meningococcal B Vaccine Aged Out No l onger eligible based on patient's age to complete this topic RSV Immunization Patients Un michael 20 months Aged Out No longer eligible b ased on patient's age to complete this topic Varicella Vaccines Aged Out No longer eligible based on patient's age to complete this topic Care Teams Event Security Officer Relationship Specialty Start Date End Date Nicho Bullard MD [address] [place] [address] Drive [address] [place] [address] PCP - General 05/02/14
--- OUTSIDE RECORDS SUMMARY | 2025-04-14 09:24 | XMS_ITS | Clinical Summary ---
Author Organization [facility] Address [address] [place] [id number] Phone Care Team Providers Care Guide Rail Cleaner Name Role Phone Nicho Bullard MD Primary Care Provider [phone] Allergies No known active allergies Medications carbidopa-levod opa (SINEMET CR) 25-100 mg per CR tablet Take 1 tablet by mouth daily. 8:30 AM Active pramipexole (MIRAPEX) 0.125 MG tablet Take 0.125 mg by mouth daily. 2 pills at 8:30 Active gabapentin (NEURONTIN) 100 MG capsule Take 100 mg by mouth 2 (two) times a day. 2 pills at 8:00 AM, 3 pills at 7 AM Active buPROPion (WELLBUTRIN XL) 150 MG ER 24 hr tablet Take 150 mg by mouth daily. 8:00 AM Active traZODone (DESYREL) 50 MG tablet Take 50 mg by mouth nightly at bedtime. 8:00 PM Active carbidopa-levod opa (SINEMET CR) 25-100 mg per CR tablet Take 1 tablet by mouth 2 (two) times a day. Active carbidopa-levod opa (SINEMET) 10-100 mg per tablet Take 1 tablet by mouth 4 (four) times a day. 6:30 AM, 10:00 AM, 1:00 PM, 4:00 PM Active Active Problems No known active problems Social History Tobacco Use Types Packs/Day Years Used Date Smoking Tobacco: Never Assessed Education Answer Date Recorded Are you interested in more education? Not on kenney e 05/30/2024 Are you concerned about learning? Not on file 05/30/2024 No 05/30/2024 No 05/30/2024 Digital Access Answer Date Recorded No 05/30/2024 No 05/30/2024 Reliable internet access at home? Not on file 05/30/2024 Device with a working camera? Not on file Sex and Gender Information Value Date Recorded Sex Assigned at Not on file Legal Sex Male 11:17 AM EDT Gender Identity Not on file Sexual Orientation Not on file Last Filed Vital Signs Vital Sign Reading Time Taken Comments Blood Pressure 141/77 10/04/2024 9:11 AM EST Pulse 91 10/04/2024 9:11 AM EST Temperature - - Respiratory Rate - - Oxygen Saturation 99% 10/04/2024 9:12 AM EST Inhaled Oxygen Concentration - - Weight 102.5 kg (226 lb) 10/04/2024 9:11 AM EST Height 180.3 cm (5' 11 ) 10/04/2024 9:11 AM EST Body Mass Index 31.52 10/04/2024 9:11 AM EST Plan of Treatment Health Maintenance Due Date Last Done Comments Adult Td,Tdap Booster 1971 LIPID PANEL 1971 DEPRESSION SCREENING 1983 SMOKING Hx and SMOKELESS TOB ACCO SCREENING 1984 HEPATITIS C SCREENING 1989 HIV ONE-TIME SCREENING (18-6 5 YEARS) 1989 SCREENING FOR DIABETES 2006 COLOGUARD 2016 COLONOSCOPY 2016 COLORECTAL CANCER SCREENING 2016 FIT TEST 2016 FOBT 2016 SIGMOIDOSCOPY 2016 VIRTUAL COLONOSCOPY 2016 PNEUMOCOCCAL VACCINES (50+ y ears) (1 of 1 - PCV) 2021 ZOSTER VACCINES (1 of 2) 2021 COVID-19 VACCINE ( - 2023-2 5 season) 2024 HEPATITIS A VACCINES Aged Out No long er eligible based on patient's age to complete this topic HIB VACCINES Aged Out No longer eligi ble based on patient's age to complete this topic MENINGOCOCCAL VACCINES (ACWY) Aged Out No longer eligible based on patient's age to complete this topic MENINGOCOCCAL VACCINES (B) Aged Out N o longer eligible based on patient's age to complete this topic Medical Devices Not on file Insurance [facility] Care Teams Guide Rail Cleaner Relationship Specialty Start Date End Date Nicho Bullard MD [address] [place] [address] [place] [address] PCP - General Internal Medicine 05/30/24 Additional Source Comments The information contained in this document represents components of the legal health record. It is not the complete legal health record.[facility]
== END 2025-04-14 10:18 | disposition home or self-care (01) ==
LOC: HO.HGI 09:09
PROVIDERS: PCP Internal Medicine; Visit Provider Nurse Practitioner
DX: G20.A1 Parkinson's disease without dyskinesia, without mention of fluctuations (principal); K22.70 Barrett's esophagus without dysplasia; R41.3 Other amnesia; Z72.0 Tobacco use
CPT/HCPCS: 99213

== ENCOUNTER 2025-05-16 07:20 | Outpatient (AMB) | payer BC, SELFPAY ==
--- OUTSIDE RECORDS SUMMARY | 2025-05-16 07:22 | XMS_ITS | Clinical Summary ---
Author Organization [facility] Address [address] [place] [id number] Phone Care Team Providers Care Sql Server Dba Developer Name Role Phone Nicho Bullard MD Primary Care Provider [phone] Allergies No known active allergies Medications carbidopa-levod [...] 2021 ZOSTER VACCINES (1 of 2) 2021 INFLUENZA VACCINE (#1) 2025 COVID-19 VACCINE ( - 2023-2 5 season) 2025 HEPATITIS A VACCINES Aged Out No long [...] topic Medical Devices Not on file Insurance [facility] Care Teams Sql Server Dba Developer Relationship Specialty Start Date End Date Nicho Bullard MD [address] [place] [address] [place] [address] (work) PCP - General Internal Medicine 05/30/24 Additional Source Comments The information contained in this document represents components of the legal health record. It is not the complete legal health record.[facility]
[2025-05-16 07:35] VITALS: BP 136/86; PULSE 82; O2SAT 97; BMI 34.2
--- NOTE | 2025-05-16 07:35 | MHC.OFFVIS ---
Vital Signs 05/16/25 07:35 Height 5 ft 11 in Weight 245 lb 6 oz BMI 34.2 BP 136/86 Blood Pressure Location Rt brachial Position Sitting Pulse 82 Pulse Source Pulse Oximeter Pulse Oximetry (%) 97 Oxygen Delivery Method Room Air Intake Visit Reasons: 3 mo follow up Intake Note: Patient presents follow up Parkinson. Patients states something are getting a bit more challenging. Privacy Analyst Required: No Accompanied by: Self / Same As Patient Allergies No Known Allergies Allergy (Verified 05/16/25 07:38) Medication List - Last Reconciled 05/16/25 by JOEY Yeager amantadine HCl 50 mg (1/2 x 100 mg) PO BID 30 days bupropion HCl XL 300 mg PO QAM 30 days carbidopa-levodopa 25-100 mg 2 tabs PO QID 90 days carbidopa-levodopa 50-200 mg ER 1 tab PO BEDTIME 90 days cyanocobalamin (vitamin B-12) 1,000 mcg (2 x 500 mcg) PO DAILY 30 days gabapentin 200mg qam and 300mg q evening orally bedtime; 90 days galcanezumab-gnlm (Emgality Pen) 120 mg subcut ONCE 30 days magnesium oxide 400 mg PO BEDTIME 30 days midodrine 2.5 mg PO BID 30 days ondansetron 4 - 8 mg (1 - 2 x 4 mg) PO Q6-8H PRN 7 days pramipexole 0.25 mg (2 x 0.125 mg) PO TID 90 days trazodone 50 mg PO BEDTIME PRN 30 days triamcinolone acetonide 0.5% 1 appl topical BID ubrogepant (Ubrelvy) 50 - 100 mg (0.5 - 1 x 100 mg) PO ONCE PRN 30 days HPI Comments Details: 54-yr-old male presents for follow-up of psotconcussive headache, dizziness, orthostatic lightheadedness, BLE neuropathy, and Parkinson's. Patient reports he has had some positive interval changes. He has felt benefit from starting vestibualr PT. He has started counseling, which he has found helpful. However, he feels his memory is worse- he has more difficulty staying in a conversation, getting stuck while talking. History of syncope and orthostatic lightheadedness and dizziness: Has done 6 sessions of vestibular PT- this has helped some, but dizziness can still be provoked by movement, such as simulating putting a golf ball. Orthostatic lightheadedness is stable. Taking fluids regularly- water and Gatorade. He is not taking midodrine recently. He is still f/b cardiology. BLE pain and neuropathy: He also feels his BLE (toes/feet/calves, and sometimes into thighs) neuropathy s/s are stable- but still feels sharp jabbing pains and creepy crawling sensation- both at rest and with activity. 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 Gabapentin helps some. Headache: Pt continues to have a constant bilateral temporal pressure- not so much a pain. Has tried Ubrelvy for this- but does not help- even if taken at the 1st sign it does not help much. Denies bruxism. He has had a couple for mild-moderate migraine attack- may treat with a Tylenol, has not thought to try the Ubrelvy for this. He can still be phonophobic more so than photophobic. The Emgality has been helpful for the migraines. Parkinson's disease: He had movement disorder consult at [facility] in Oct 2024- who concurred w/ pt's diagnosis and overall plan- though did suggest to increase his CD-LD dose. They advised pt that he would need to choose to continue care tehre at [facility] or here at [facility] [place]- pt has opted to continue care here. Pt's current PD medication regimen: CD-LD IR 25-100mg - 1 tab QID. CD-LD ER 25-100mg- 2 tabs q.h.s.. Gabapentin 300mg q 7pm. ADL's: Ind, but switched to an electric razor as he was missing places when shaving Swallowing: starting to notice some difficulties swallowing pills Drooling: mild- not bothersome Orthostatic lightheadedness: at times, now stands up with a cane Constipation: None Urinary symptoms: None Tremor: some hand tremor Dyskinesia: sometimes his right cheek will puff iin the evening or he will nod his head Stiffness: feels stiffer, slower Gait changes: Feeling off-balance. Walking w/ cane Freezing: denies Falls: Denies interval falls. has walkers on all 4 floors of the house. Mood: Seeing the therapist has helped- Hallucinations: Denies Memory: as above Sleep: sleeping ok Exercise: not a lot- as he is constantly dizzy. 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 CRP- 3.5 H 06/18/23, In-Lab PSG: Sleep efficiency 55%, PLMS 6/hr w/ PLMS arousal index 0.9/hr, AHI 0/hr, REM AHI 0/hr, O2 katlyn 91% w/ average SpO2 94%. 05/21/13, Brain MRI w/wo: No findings of an acute intracranial process or abnormal enhancement. 06/24/23, Brain MRI/MRA w/o: Questionable vessel tortuosity versus 2 mm saccular aneurysm distal A2 segment of the right INDIRA. 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 Remainder of the intracranial vessels demonstrate no hemodynamically significant stenosis, focal aneurysm, or discrete vascular cutoff 07/14/23, DaTscan: slight decreased activity in the posterior putamen bilaterally. [facility] Medical History Headache Knee pain Right hand pain Family history of cardiac arrest Smoker Restless sleeper Family history of Parkinson disease Parkinson's disease without dyskinesia GERD (gastroesophageal reflux disease) Cerebral aneurysm Vertigo Bilateral lower extremity pain Hiatal hernia with gastroesophageal reflux Duodenal ulcer Surgical History History of esophagogastroduodenoscopy (EGD) No pertinent past surgical history Family History Father Past heart attack Parkinsons disease Mother Hypertension Sister No problems noted. Brother No problems noted. Brother No problems noted. Brother No problems noted. Brother No problems noted. 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 Cognitive needs: No Hearing needs: No Vision needs: No Physical Exam Vital Signs: Last Vital Signs Pulse 82 05/16/25 07:35 BP 136/86 05/16/25 07:35 Pulse Ox 97 05/16/25 07:35 Oxygen Delivery Method Room Air 05/16/25 07:35 BMI result Body Mass Index 34.2 Const General: cooperative and no acute distress Resp Effort & Inspection: normal respiratory effort and able to speak in complete sentences Neuro Other: A&O x's 3 Affect is improved today, though still mildly flat Soft voice Mild RUE postural trmeor No appreciable tone BUE FFM- bradykinesia, Foot taps- bradykinesia Stands easily, left shoulder drooped, shorter steps, steady gait w/ cane. Assessment & Plan Assessment & Plan (1) Parkinson's disease without dyskinesia: Comment: Likely early PD in setting of family h/o PD. DaTscan, 07/14/23, slight decreased activity in the posterior putamen bilaterally. Code(s): G20.A1 - Parkinson's disease without dyskinesia, without mention of fluctuations Category: Medical Qualifiers: Fluctuating manifestations: without fluctuating manifestations Qualified Code(s): G20.A1 - Parkinson's disease without dyskinesia, without mention of fluctuations (2) Memory loss: Code(s): R41.3 - Other amnesia Category: Medical (3) Benign paroxysmal vertigo, unspecified ear: Code(s): H81.10 - Benign paroxysmal vertigo, unspecified ear Category: Medical Qualifiers: Laterality: unspecified laterality Qualified Code(s): H81.10 - Benign paroxysmal vertigo, unspecified ear (4) Major depression: Code(s): F32.9 - Major depressive disorder, single episode, unspecified Category: Medical Qualifiers: Major depression recurrence: unspecified whether recurrent Active/Remission status: remission status unspecified Qualified Code(s): F32.9 - Major depressive disorder, single episode, unspecified (5) Anxiety: Code(s): F41.9 - Anxiety disorder, unspecified Category: Medical (6) Migraine without aura: Comment: s/p fall on 03/14/23 Code(s): G43.009 - Migraine without aura, not intractable, without status migrainosus Category: Medical Qualifiers: Status migrainosus presence: without status migrainosus Intractability: not intractable Qualified Code(s): G43.009 - Migraine without aura, not intractable, without status migrainosus (7) Peripheral neuropathy: Comment: BLE EMG/NCS- 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 Concur with cardiology's recommendation for liberalize salt intake. Continue to stand slowly. Will request nephrology eval for a 24 hr blood pressure monitor Follow-up w/ cardiology as scheduled. For positional dizziness: Continue vestibular PT eval & tx Future considerations- vision therapy For BLE peripheral neuropathy: Continue exercise. Try BLE foot/ankle exercises- list of simple exercises shared w/ pt. Continue Vitamin B-12. Continue Gabapentin 200 mg q.a.m. and 300 mg q.h.s. For PD: Start Amanatadine 50mg bid (last dose before 2pm)- take with food Continue CD-LD IR 25-100mg - 2 tabs QID. Continue CD-LD ER 50-200mg daily at bedtime- to reduce pill burden. Continue Pramipexole 0.125mg- 2 tabs (0.25mg) po 3 x's per day. [facility] movement Clinic consult notes reviewed. Previous PD trials- Rasagiline- ineffective. For mood and sleep: Continue bupropion XL 300mg qam- in hope this further helps mood, energy, cognition, focus. Continue trazodone 50 mg q.h.s. Continue counseling Patient is on wait list to be called for appt at [facility] for neuro-psych- we will reach out to other clinics. For acute headache treatment: Tylenol prn. Ubrelvy prn- trial Ubrelvy for bilateral temporal headache he has been having. Cyclobenzaprine prn Previous acute migraine medication trials: Tylenol- ineffective. Sumatriptan- ineffective. Rizatripatn- not fully effective. Elyxyb- samples- ineffective. Acute migraine medication contraindications: None at this time ? For headache prevention medication: Magnesium 400mg qhs Continue Emgality 120mg sc q month as pt is having good clinical effect. Previous migraine prevention medication trials: Propranolol Er 60mg qhs d/t orthostatic dizziness. Amitriptyline 50mg qhs- ineffective Migraine prevention medication contraindications: None at this time ? Will follow-up upon review of above and patient to follow-up in clinic in 3-6 months or sooner prn. Medications: New amantadine HCl 50 mg (1/2 x 100 mg) PO BID 30 tabs 6RF 30 days Refilled trazodone 50 mg PO BEDTIME PRN 30 tabs 6RF sleep 30 days galcanezumab-gnlm (Emgality Pen) 120mg sc q month 120 mg subcut ONCE 30 mL 6RF 30 days magnesium oxide may hold for loose stools 400 mg PO BEDTIME 30 tabs 6RF 30 days pramipexole 0.25 mg (2 x 0.125 mg) PO TID 540 tabs 1RF 90 days cyanocobalamin (vitamin B-12) 1,000 mcg (2 x 500 mcg) PO DAILY 60 tabs 6RF 30 days Coding Level of Care Code Est Pt Level 4 (74403) Complex EM visit Add On G2211 Diagnoses Parkinson's disease without dyskinesia or fluctuating manifestations G20.A1 Fluctuating manifestations: without fluctuating manifestations Memory loss R41.3 Benign paroxysmal vertigo, unspecified laterality H81.10 Laterality: unspecified laterality Major depressive disorder, remission status unspecified, unspecified whether recurrent F32.9 Major depression recurrence: unspecified whether recurrent Active/Remission status: remission status unspecified Anxiety F41.9 Migraine without aura and without status migrainosus, not intractable G43.009 Status migrainosus presence: without status migrainosus Intractability: not intractable Peripheral polyneuropathy G62.9 Peripheral neuropathy type: polyneuropathy, unspecified
== END 2025-05-16 09:00 | disposition home or self-care (01) ==
LOC: HO.HSMS 07:21
PROVIDERS: PCP Internal Medicine; Visit Provider Nurse Practitioner Family
DX: G20.A1 Parkinson's disease without dyskinesia, without mention of fluctuations (principal); R41.3 Other amnesia; H81.10 Benign paroxysmal vertigo, unspecified ear; F32.9 Major depressive disorder, single episode, unspecified; F41.9 Anxiety disorder, unspecified; G43.009 Migraine without aura, not intractable, without status migrainosus; G62.9 Polyneuropathy, unspecified
CPT/HCPCS: 99214

== ENCOUNTER 2025-07-14 16:12 | Outpatient (AMB) | payer BC, SELFPAY ==
[2025-07-14 16:16] VITALS: BP 124/73; O2SAT 100; BMI 33.7
--- NOTE | 2025-07-14 16:16 | MHC.OFFVIS ---
Vital Signs 07/14/25 16:16 Height 5 ft 11 in Weight 242 lb BMI 33.7 BP 124/73 Blood Pressure Location Lt brachial Position Sitting Pulse Oximetry (%) 100 Intake Visit Reasons: Discuss recall EGD Intake Note: Patient in office today in follow up for repeat EGD. CC: Patient reports doing well. He states he does have some trouble swallowing pills but states that this is related to his Parkinson's desease. Land Law Examiner Required: No Accompanied by: Self / Same As Patient Allergies No Known Allergies Allergy (Verified 07/14/25 16:25) HPI HPI Discuss recall EGD: Details: Assessment & Plan (1) Lee's esophagus: Comment: A lifelong diagnosis since he was teenager but is last endoscopy was in [place] and do not have records Code(s): K22.70 - Lee's esophagus without dysplasia Category: Medical (2) Memory loss: Code(s): R41.3 - Other amnesia Category: Medical (3) Parkinson's disease without dyskinesia: Comment: Likely early PD in setting of family h/o PD. DaTscan, 07/14/23, slight decreased activity in the posterior putamen bilaterally. Code(s): G20.A1 - Parkinson's disease without dyskinesia, without mention of fluctuations Category: Medical (4) Tobacco abuse: Comment: stopped 2021 Code(s): Z72.0 - Tobacco use Category: Medical (5) Encounter for colorectal cancer screening using Cologuard test: Code(s): Z12.11 - Encounter for screening for malignant neoplasm of colon; Z12.12 - Encounter for screening for malignant neoplasm of rectum Category: Medical Plan Patient has been lost to follow-up since 2021 and apparently is here today for repeat EGD for his Lee's esophagus. He was diagnose Parkinson's disease shortly after our last visit and this has been his focus, understandably, over the past 2 years. It has been a big adjustment for him but he is still working greater than 40 hours a week and he hopes to continue managing his life. The biggest problem he has had has been with chronic dizziness which has increased his fall risk. We discussed colon cancer screening which she admits he has been avoiding. He has no family history of colon cancer so he would be a good candidate for Cologuard. We watch the Cologuard video and I address his questions with regards to the screening process and let him know that if it is positive we still need to consider colonoscopy. He is agreeable to this. He has concerns about anesthesia and sedation relative to his Parkinson's I will be discussing this with his neurologist in his upcoming appointment in 4 weeks. They will contact me if there is any concern that this should be postponed. I advised him that he should plan to just stay in the easy chair after the procedure and perhaps get a urinal to minimize his fall risk. I also advised that he have someone at home with him. He denies any cardiac or respiratory problems. There are no infectious disease problems. Return office visit in 8 weeks to review Cologuard. I also let him know that Parkinson's patients sometimes have a great deal of gastrointestinal problems including constipation and he should reach out to our service if he ever needs help with management. At this time he is doing well and not having trouble with his bowels. Orders: Orders EGD - GI Use Only Today K22.70 - Lee's esophagus without dysplasia Cologuard: 04/25/2020 5- Cologuard study EGD BIOPSY TODAY'S VISIT ON LICENSE OF [facility] Medical History Headache Knee pain Right hand pain Family history of cardiac arrest Smoker Restless sleeper Family history of Parkinson disease Parkinson's disease without dyskinesia GERD (gastroesophageal reflux disease) Cerebral aneurysm Vertigo Bilateral lower extremity pain Hiatal hernia with gastroesophageal reflux Duodenal ulcer Surgical History History of esophagogastroduodenoscopy (EGD) No pertinent past surgical history Family History Father Past heart attack Parkinsons disease Mother Hypertension Sister No problems noted. Brother No problems noted. Brother No problems noted. Brother No problems noted. Brother No problems noted. 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 Cognitive needs: No Hearing needs: No Vision needs: No Assessment & Plan Assessment & Plan (1) Colon cancer screening: Comment: 03/2025= negative Cologuard repeat in 3 years Code(s): Z12.11 - Encounter for screening for malignant neoplasm of colon Category: Medical (2) Lee's esophagus: Comment: A lifelong diagnosis since he was teenager but is last endoscopy was in [place] and do not have records Code(s): K22.70 - Lee's esophagus without dysplasia Category: Medical (3) Encounter for colorectal cancer screening using Cologuard test: Comment: 03/2025= negative Cologuard repeat in 3 years Code(s): Z12.11 - Encounter for screening for malignant neoplasm of colon; Z12.12 - Encounter for screening for malignant neoplasm of rectum Category: Medical Plan Subjective Follow-up to review polyp results. Pathology returned negative; discussed that no colonoscopy is needed. Patient remains in the scheduling queue for upper endoscopy for Lee's esophagus and has not yet received a date; reassured that current scheduling delays are typical. Agreed to follow up after the endoscopy when completed. Lee's esophagus. Objective Assessment & Plan Polyp evaluation: Pathology negative. No further colonoscopy indicated at this time. - No colonoscopy needed. - Reassurance provided; patient to call if any concerns arise. Lee's esophagus: Awaiting scheduled upper endoscopy. - Proceed with upper endoscopy when scheduled. - Plan to follow up after the endoscopy is completed. - Patient to contact me if needs arise prior to the procedure. Coding Level of Care Code Est Pt Level 3 (61608) Diagnoses Colon cancer screening Z12.11 Lee's esophagus K22.70 Encounter for colorectal cancer screening using Cologuard test Z12.11; Z12.12
== END 2025-07-14 16:50 | disposition home or self-care (01) ==
LOC: HO.HGI 16:12
PROVIDERS: PCP Internal Medicine; Visit Provider Nurse Practitioner
DX: K22.70 Barrett's esophagus without dysplasia (principal)
CPT/HCPCS: 99213

== ENCOUNTER 2025-08-14 09:14 | Outpatient (AMB) | payer BC, SELFPAY ==
--- NOTE | 2025-08-14 09:30 | MHC.OFFVIS ---
Vital Signs 08/14/25 09:31 Height 5 ft 11 in Weight 246 lb BMI 34.3 BP 144/90 H Blood Pressure Location Rt brachial Position Sitting Pulse 67 Pulse Source Pulse Oximeter Pulse Oximetry (%) 99 Oxygen Delivery Method Room Air Intake Visit Reasons: 6 mo follow up Intake Note: Patient presents follow up Parkinson. Patients states something are getting a bit more challenging. 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 Accompanied by: Spouse Allergies No Known Allergies Allergy (Verified 08/14/25 09:31) Medication List - Last Reconciled 08/14/25 by JOEY Yeager amantadine HCl 50 mg (1/2 x 100 mg) PO BID 30 days bupropion HCl XL 300 mg PO QAM 30 days carbidopa-levodopa 25-100 mg 2 tabs PO QID 90 days carbidopa-levodopa 50-200 mg ER 1 tab PO BEDTIME 90 days cyanocobalamin (vitamin B-12) 1,000 mcg (2 x 500 mcg) PO DAILY 30 days gabapentin 200mg qam and 300mg q evening orally bedtime; 90 days galcanezumab-gnlm (Emgality Pen) 120 mg subcut ONCE 30 days midodrine 2.5 mg PO BID 30 days ondansetron 4 - 8 mg (1 - 2 x 4 mg) PO Q6-8H PRN 7 days pramipexole 0.25 mg (2 x 0.125 mg) PO TID 90 days trazodone 50 mg PO BEDTIME PRN 30 days triamcinolone acetonide 0.5% 1 appl topical BID ubrogepant (Ubrelvy) 50 - 100 mg (0.5 - 1 x 100 mg) PO ONCE PRN 30 days HPI Comments Details: 55-yr-old male presents for follow-up of Parkinson's disease, postconcussive migraine headache, dizziness, orthostatic lightheadedness, BLE neuropathy. Patient is accompanied by his . He reports that that some symptoms are better while others are significantly worse. Transient episode of altered mental status and visual changes: - He described a significant recent episode that occurred while he was a passenger in the back seat of a car, where his head became stooped and he was unresponsive. - During this event, he could hear but was unable to talk, did not believe he had a full loss of consciousness, and experienced some confusion. - Associated with this episode was bilateral vision loss, described as dark and nonexistent, which lasted for approximately 15 minutes, after which he felt spent. - He denies experiencing nausea, vomiting, or a headache at the time of this incident. - He has had similar episodes in the past, but not ever this pronounced, which are triggered by looking at very bright lights or shiny floors. Nocturnal coughing and choking episode followed by worsening hypophonia: - Additionally, about 6 weeks ago, he believes he aspirated in his sleep after deviating from his usual diet. - He woke up coughing for 30 minutes and subsequently felt cold and shaky, which he notes is typical for him after such choking episodes. - Uncharacteristically, about 1 to 2 weeks after this aspiration event, his voice became significantly softer, like a whisper. History of syncope and orthostatic lightheadedness and dizziness: Has done 6 sessions of vestibular PT- which previously had been helpful. He can still be prone to some dizziness provoked by movement. Orthostatic lightheadedness is stable. Taking fluids regularly- water and Gatorade. He is not taking midodrine recently. He is still f/b cardiology. BLE pain and neuropathy: He also feels his BLE (toes/feet/calves, and sometimes into thighs) neuropathy s/s are stable- but still feels sharp jabbing pains and creepy crawling sensation- both at rest and with activity. Gabapentin provide some benefit. Headache: He has had a couple for mild-moderate migraine attack per month. He can still be phonophobic more so than photophobic. The Emgality has been helpful to prevent severe migraine attacks Ubrelvy is effective for as-needed treatment Parkinson's disease: Pt's current PD medication regimen: Amantadine 50 mg twice a day Carbidopa-Levodopa IR 25-100mg 2 tabs at 6:30 AM, 9:45 AM, 1:00-2:00 PM, and 4:00 PM Carbidopa-Levodopa ER 50-200 mg daily at 9:30 PM Pramipexole 0.25 mg 3 times a day at 8 AM, 12 PM, and 8 PM Gabapentin 20mg qam and 300mg q 7pm. Not currently using midodrine Do your Parkinson's disease medication effects last between doses: No, he is experiencing greater than 3 hours of off time per day. ADL's: Ind, but switched to an electric razor as he was missing places when shaving Voice changes: As above Swallowing: Nocturnal coughing and choking, as above Drooling: mild- not bothersome Orthostatic lightheadedness: at times, now stands up with a cane Constipation: None Urinary symptoms: None Tremor: some hand tremor Dyskinesia: sometimes his right cheek will puff or he will nod his head Stiffness: feels stiffer, slower- especially before and after his medication doses Gait changes: Feeling off-balance. Walking w/ cane Freezing: May occur Falls: Denies interval falls. has walkers on all 4 floors of the house. Mood: He is feeling frustrated by the increased symptoms Hallucinations: Denies Memory: Noticing more cognitive difficulties Sleep: sleeping ok Exercise: Not much Previous work-up: Oct 2024, [place] [facility]red w/ pt's diagnosis and overall plan- though did suggest to increase his CD-LD dose. They advised pt that he would need to choose to continue [place] [facility] [place] at [facility]- pt has opted to continue care here. 12/22/23, BLE EMG/NCS: Moderately severe sensory and motor peripheral neuropathy with features of demyelination and axonal loss 05/16/23: CBC, CMP, ESR- WNL. CRP- 3.5 H 06/18/23, In-Lab PSG: Sleep efficiency 55%, PLMS 6/hr w/ PLMS arousal index 0.9/hr, AHI 0/hr, REM AHI 0/hr, O2 katlyn 91% w/ average SpO2 94%. 05/21/13, Brain MRI w/wo: No findings of an acute intracranial process or abnormal enhancement. 06/24/23, Brain MRI/MRA w/o: Questionable vessel tortuosity versus 2 mm saccular aneurysm distal A2 segment of the right INDIRA. 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 Remainder of the intracranial vessels demonstrate no hemodynamically significant stenosis, focal aneurysm, or discrete vascular cutoff 07/14/23, DaTscan: slight decreased activity in the posterior putamen bilaterally. [facility] Medical History (Updated 08/27/25 @ 17:25 by JOEY Yeager) Hypophonia GERD (gastroesophageal reflux disease) Headache Knee pain Right hand pain Family history of cardiac arrest Smoker Restless sleeper Family history of Parkinson disease Parkinson's disease without dyskinesia Cerebral aneurysm Vertigo Bilateral lower extremity pain Hiatal hernia with gastroesophageal reflux Duodenal ulcer Surgical History History of esophagogastroduodenoscopy (EGD) No pertinent past surgical history Family History Father Past heart attack Parkinsons disease Mother Hypertension Sister No problems noted. Brother No problems noted. Brother No problems noted. Brother No problems noted. Brother No problems noted. 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 - Reports postconcussive headaches, dizziness, and bilateral lower extremity neuropathy. - Reports an episode of unresponsiveness with preserved hearing and confusion, but without full loss of consciousness. - He experiences orthostatic lightheadedness, though symptoms have been less frequent recently. - He denies multiple falls. - He denies compulsive behaviors. - Ophthalmologic: Reports an episode of bilateral vision loss described as nonexistent dark lasting about 15 minutes and a history of less severe vision changes. - He denies interval dry, gritty, or watery eyes. - Respiratory/ENT: Reports a suspected aspiration episode in his sleep 6 weeks ago, with coughing for 30 minutes. - Reports his voice became significantly softer, like a whisper, 1-2 weeks after the aspiration event. - Gastrointestinal: Reports a long history of heartburn, managed with diet. - He denies nausea or vomiting during his recent acute neurologic episode. - Constitutional: Reports feeling spent after the neurologic event and feeling cold and shaky after choking episodes. Physical Exam Exam Exam: Vital Signs: Last Vital Signs Pulse 67 08/14/25 09:31 BP 144/90 H 08/14/25 09:31 Pulse Ox 99 08/14/25 09:31 Oxygen Delivery Method Room Air 08/14/25 09:31 BMI result Body Mass Index 34.3 Const General: cooperative and no acute distress Resp Effort & Inspection: normal respiratory effort and able to speak in complete sentences Neuro Other: A&O x's 3 Decreased facial expression Marked voice softness Mild RUE postural tremor Mild RUE tone BUE FFM- bradykinesia, Foot taps- bradykinesia Stands slowly,, left shoulder drooped, shorter steps, steady gait w/ cane. Assessment & Plan Assessment & Plan (1) GERD (gastroesophageal reflux disease): Code(s): K21.9 - Gastro-esophageal reflux disease without esophagitis Category: Medical (2) Lee's esophagus: Comment: A lifelong diagnosis since he was teenager but is last endoscopy was in [place] and do not have records Code(s): K22.70 - Lee's esophagus without dysplasia Category: Medical (3) Altered mental status: Code(s): R41.82 - Altered mental status, unspecified Category: Medical (4) Transient visual loss, bilateral: Code(s): H53.123 - Transient visual loss, bilateral Category: Medical (5) Hypophonia: Code(s): R49.8 - Other voice and resonance disorders Category: Medical (6) Memory loss: Code(s): R41.3 - Other amnesia Category: Medical (7) Benign paroxysmal vertigo, unspecified ear: Code(s): H81.10 - Benign paroxysmal vertigo, unspecified ear Category: Medical Qualifiers: Laterality: unspecified laterality Qualified Code(s): H81.10 - Benign paroxysmal vertigo, unspecified ear (8) Major depression: Code(s): F32.9 - Major depressive disorder, single episode, unspecified Category: Medical Qualifiers: Active/Remission status: remission status unspecified Major depression recurrence: unspecified whether recurrent Qualified Code(s): F32.9 - Major depressive disorder, single episode, unspecified (9) Anxiety: Code(s): F41.9 - Anxiety disorder, unspecified Category: Medical (10) Migraine without aura: Comment: s/p fall on 03/14/23 Code(s): G43.009 - Migraine without aura, not intractable, without status migrainosus Category: Medical Qualifiers: Intractability: not intractable Status migrainosus presence: without status migrainosus Qualified Code(s): G43.009 - Migraine without aura, not intractable, without status migrainosus (11) Peripheral neuropathy: Comment: BLE EMG/NCS- Moderately severe sensory and motor peripheral neuropathy with features of demyelination and axonal loss Code(s): G62.9 - Polyneuropathy, unspecified Category: Medical Qualifiers: Peripheral neuropathy type: polyneuropathy, unspecified Qualified Code(s): G62.9 - Polyneuropathy, unspecified Plan Discussion Notes I discussed taking the patient out of work for three months to allow for a thorough diagnostic workup due to the recent episode of altered mental status associated with vision loss, armando voice change, worsening cognitive difficulties. I explained that we will order an MRI of his head with and without contrast, MRA of his head without contrast, and an MRA of his neck with and without contrast, and a baseline EEG. I also informed him that we will request specialist consultations, including an ophthalmology consult, a speech therapy evaluation, and a consult at [facility]. Regarding his gastrointestinal symptoms and history of Lee's esophagus, I advised that he can trial an pavu-fsl-[id number] reflux medication, taking 1-2 tablespoons after meals and at bedtime, while awaiting his endoscopy scheduled for October. I also advised him to have a chest x-ray. We discussed adjustments to his medication regimen for Parkinson's disease. I plan to increase his amantadine dose from 50 mg twice a day to 100 mg twice a day. Furthermore, I will initiate the process to transition his carbidopa-levodopa to an infused formulation, such as foscarbidopa-foslevodopa, as he is having greater than 3 hours of Parkinson's off time despite being compliant with his Parkinson's medication regimen at optimal doses, which can not be increase further due to risk for worsening underlying orthostatic hypotension. Patient was informed and verbally consented to the use of an ambient scribe for clinic note documentation during this visit. Treatment plan General instructions: You are advised to take a medical leave of absence from work for the next 3 months to undergo medical testing and adjustments to your Parkinson's medication regimen. 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 Concur with cardiology's recommendation for liberalize salt intake. Continue to stand slowly. We will revisit request for nephrology eval for a 24 hr blood pressure monitor- upon review of above workup. Follow-up w/ cardiology as scheduled. For positional dizziness: Continue vestibular PT home exercises Future considerations- vision therapy For BLE peripheral neuropathy: Increase exercises as tolerated. BLE foot/ankle exercises- list of simple exercises previously shared w/ pt. Continue Vitamin B-12. Continue Gabapentin 200 mg q.a.m. and 300 mg q.h.s. For PD: Start Vyalev, foscarbidopa- foslevodopa subcutaneous infusion, set as follows: Typical sleep schedule: 10:30 pm-5 am Dosage calculated based on: 18 hours of wakefulness per day Base rate: 0.24 mL/hr This corresponds to 40.80 mg of levodopa per hour (979.20 mg levodopa per day) High rate: 0.26 mL/hr Low rate: 0.22 mL/hr Extra dose: 0.20 mL This corresponds to 34 mg of levodopa Lockout time: 2 hours 0 minutes Loading dose: 1.10 mL This corresponds to 200 mg of levodopa Lockout time: 3 hours When Vyalev available, we will hold scheduled carbidopa levodopa IR and ER orders, however he will need to continue to keep a sufficient supply of carbidopa levodopa IR an ER on him at all times to use as needed in the event of Vyalev pump malfunction. In the meantime: Discontinue Amanatadine 50mg bid (last dose before 2pm)- take with food Start Amanatadine 50mg bid (last dose before 2pm)- take with food Continue CD-LD IR 25-100mg - 2 tabs QID. Continue CD-LD ER 50-200mg daily at bedtime- to reduce pill burden. Continue Pramipexole 0.125mg- 2 tabs (0.25mg) po 3 x's per day. Previous PD trials- rasagiline- ineffective. For mood and sleep: Continue bupropion XL 300mg qam- for mood, energy, cognition, focus. Continue trazodone 50 mg q.h.s. for sleep Continue counseling Patient is on wait list to be called for appt at [facility] for neuro-psych- we will reach out to other clinics. For acute headache treatment: Tylenol prn. Continue Ubrogepant (Ubrelvy) 100mg tab, 1/2 - 1 tab (50-100mg) at onset of headache, may repeat in 2 hours. Max of 2 tabs (200mg) per 24 hours. May adjunct with OTC Tylenol 650mg q 4 hours, Ibuprofen 600mg q 6 hours, or Naproxen 440mg q 12 hrs prn. Cyclobenzaprine prn Previous acute migraine medication trials: Tylenol- ineffective. Sumatriptan- ineffective. Rizatripatn- not fully effective. Elyxyb- samples- ineffective. Acute migraine medication contraindications: None at this time ? For headache prevention medication: Magnesium 400mg qhs Continue Emgality 120mg sc q month as pt is having good clinical effect. Previous migraine prevention medication trials: Propranolol Er 60mg qhs d/t orthostatic dizziness. Amitriptyline 50mg qhs- ineffective Migraine prevention medication contraindications: None at this time ? Will follow-up upon review of above and patient to follow-up in clinic in 3-6 months or sooner prn. Orders: Orders MR angio neck wo/w con 08/14/25 R41.82 - Altered mental status, unspecified, H53.123 - Transient visual loss, bilateral, I67.1 - Cerebral aneurysm, nonruptured MR head/brain wo/w con 08/14/25 R41.82 - Altered mental status, unspecified, H53.123 - Transient visual loss, bilateral, I67.1 - Cerebral aneurysm, nonruptured XR chest 2V 08/14/25 K21.9 - Gastro-esophageal reflux disease without esophagitis, K22.70 - Lee's esophagus without dysplasia, R05.9 - Cough, unspecified EEG Routine 08/14/25 G20.A1 - Parkinson's disease without dyskinesia, without mention of fluctuations, R41.82 - Altered mental status, unspecified, H53.123 - Transient visual loss, bilateral MR angio head wo con 08/14/25 R41.82 - Altered mental status, unspecified, H53.123 - Transient visual loss, bilateral, I67.1 - Cerebral aneurysm, nonruptured Referrals Ear/Nose/Throat Referral K21.9 - Gastro-esophageal reflux disease without esophagitis, K22.70 - Lee's esophagus without dysplasia, G20.A1 - Parkinson's disease without dyskinesia, without mention of fluctuations, R49.8 - Other voice and resonance disorders Speech and Hearing Referral R49.8 - Other voice and resonance disorders, G20.A1 - Parkinson's disease without dyskinesia, without mention of fluctuations, R41.3 - Other amnesia Medications: Changed From amantadine HCl 50 mg (1/2 x 100 mg) PO BID 30 days 30 tabs 6RF G20.A1 - Parkinson's disease without dyskinesia, without mention of fluctuations To amantadine HCl 8 am and 2 pm 100 mg PO BID 60 tabs 6RF 30 days G20.A1 - Parkinson's disease without dyskinesia, without mention of fluctuations Coding Level of Care Code Est Pt Level 4 (70436) Add On Problem Visit Only Diagnoses GERD (gastroesophageal reflux disease) K21.9 Lee's esophagus K22.70 Altered mental status R41.82 Transient visual loss, bilateral H53.123 Hypophonia R49.8 Memory loss R41.3 Benign paroxysmal vertigo, unspecified laterality H81.10 Laterality: unspecified laterality Major depressive disorder, remission status unspecified, unspecified whether recurrent F32.9 Active/Remission status: remission status unspecified Major depression recurrence: unspecified whether recurrent Anxiety F41.9 Migraine without aura and without status migrainosus, not intractable G43.009 Intractability: not intractable Status migrainosus presence: without status migrainosus Peripheral polyneuropathy G62.9 Peripheral neuropathy type: polyneuropathy, unspecified
[2025-08-14 09:31] VITALS: BP 144/90; PULSE 67; O2SAT 99; BMI 34.3
== END 2025-08-14 10:44 | disposition home or self-care (01) ==
LOC: HO.HSMS 09:15
PROVIDERS: PCP Internal Medicine; Visit Provider Nurse Practitioner Family
DX: K21.9 Gastro-esophageal reflux disease without esophagitis (principal); K22.70 Barrett's esophagus without dysplasia; R41.82 Altered mental status, unspecified; H53.123 Transient visual loss, bilateral; R49.8 Other voice and resonance disorders; R41.3 Other amnesia; H81.10 Benign paroxysmal vertigo, unspecified ear; F32.9 Major depressive disorder, single episode, unspecified; F41.9 Anxiety disorder, unspecified; G43.009 Migraine without aura, not intractable, without status migrainosus; G62.9 Polyneuropathy, unspecified
CPT/HCPCS: 99214